=== PATIENT | female | born 2000 | race Caucasian/White ===

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

== ENCOUNTER 2020-05-11 21:13 | Emergency (ER) | payer OTHER ==
--- OUTSIDE RECORDS SUMMARY | 2020-05-11 21:15 | XMS REPORT | Continuity of Care Document ---
:2000 Author Organization [facility] t Address [address] [place] [address] Care Team Providers Name Role Phone Weston Bragg MD Attending Clinician Payers Payer Name Policy Type Policy Number Effective Date Expiration Date S ource Problems This patient has no known problems. Allergies, Adverse Reactions, Alerts Allergy Allergy Status Severity Reaction(s) Onset Inactive Treating Comm ents Source Name Type Date Date Clinician PENICILL DA Active U 2007- [facility] [place] 07-22 [facility] 00:00: d 00 [facility] Medications This patient has no known medications. Procedures This patient has no known procedures. Encounters Start End Encounter Admission Attending Care Care Encounter Source Date/Time Date/Time Type Type Clinicians Facility Department ID 2019-07-18 2019-07-18 Refill WAQAR Bragg [id number] 00:00:00 00:00:00 Alfred Sun [id number] Patricia [id number] [place] [id number] nal 092 Building Results This patient has no known results.
[2020-05-11 22:01] LABS: Urine Blood 3+ (NEG); Urine Glucose NEGATIVE (NEG); Urine Protein 2+ (NEG); Urine pH 5.5 (5.0-7.0)
[2020-05-11 22:01] LABS: Urine Bacteria <20 /HPF (<20); Urine Culture Reflex Order REFLEXED; Urine Mucus 1+ /HPF (NONE SEEN); Urine RBC 20-50 /HPF (NONE SEEN)
--- NOTE | 2020-05-11 22:06 | EDPHYS ---
Physician Documentation [facility] Name: Renetta Martin Age: 19 yrs Sex: Female : 2000 Arrival Date: 05/11/2020 Time: 21:15 Bed 19 Private MD: ED Physician Samir Goodwin HPI: 05/11 21:45 This 19 yrs old Female presents to ER via Ambulatory with complaints of Side cp Pain, Urinary Frequency, Fever. 21:45 The patient presents with urinary symptoms, dysuria, frequency. cp 21:45 Onset: The symptoms/episode began/occurred 4 day(s) ago. Associated signs and symptoms: cp Pertinent positives: fever, left flank pain, Pertinent negatives: constipation, diarrhea, vaginal discharge, vomiting. Severity of symptoms: in the emergency department the symptoms are unchanged, despite home interventions. 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 - Social history:: Smoking status: Patient denies any tobacco usage or history of. ROS: 21:50 Constitutional: Negative for body aches, chills, fever, poor PO intake. cp 21:50 Eyes: Negative for injury, pain, redness, and discharge. cp 21:50 Cardiovascular: Negative for chest pain. 21:50 Respiratory: Negative for cough, shortness of breath, wheezing. 21:50 Abdomen/GI: Negative for nausea, vomiting, diarrhea, constipation. 21:50 Back: Positive for flank pain, on the left. 21:50 : Positive for urinary symptoms, suprapubic pain. 21:50 Neuro: Negative for headache. 21:50 All other systems are negative. Exam: 21:55 Constitutional: The patient appears in no acute distress, alert, awake, non-toxic, well cp developed, well nourished. 21:55 Head/Face: Normocephalic, atraumatic. cp 21:55 Chest/axilla: Inspection: normal. 21:55 Cardiovascular: Rate: tachycardic, Rhythm: regular. 21:55 Respiratory: the patient does not display signs of respiratory distress, Respirations: normal, no use of accessory muscles, no retractions, labored breathing, is not present, Breath sounds: are clear throughout, no decreased breath sounds. 21:55 Abdomen/GI: Inspection: abdomen appears normal, Palpation: abdomen is soft and non-tender, in all quadrants, voluntary guarding, is not appreciated, involuntary guarding, is not appreciated. 21:55 Back: CVA tenderness, that is mild, is noted on the left. Vital Signs: 21:20 BP 98 / 66; Pulse 114; Resp 15 S; Temp 98.2(TE); Pulse Ox 99% ; Weight 52.62 kg (R); ca1 Height 5 ft. 6 in. (167.64 cm) (R); 21:45 BP 109 / 75 RA (auto/reg); Pulse 105; Pulse Ox 99% on R/A; jp3 21:20 Body Mass Index 18.72 (52.62 kg, 167.64 cm) ca1 MDM: 21:32 Patient medically screened. cp 22:00 Differential diagnosis: ovarian cyst, pelvic inflammatory disease, urinary tract cp infection, vaginosis, pyelonephritis. 22:05 Data reviewed: vital signs, nurses notes, lab test result(s), and as a result, I will cp discharge patient. 22:05 Counseling: I had a detailed discussion with the patient and/or guardian regarding: the cp historical points, exam findings, and any diagnostic results supporting the discharge/admit diagnosis, lab results, to return to the emergency department if symptoms worsen or persist or if there are any questions or concerns that arise at home. 05/11 21:32 Order name: Urine Microscopic Only; Complete Time: 22:04 cp 05/11 22:04 Interpretation: Normal except: UWBC 20-50; URBC 20-50. cp 05/11 21:51 Order name: Urine Dipstick--Ancillary (enter results); Complete Time: 22:04 ar5 05/11 22:04 Interpretation: Normal except: UBLD 3+; UPROT 2+; UESTR 1+. cp 05/11 21:28 Order name: Urine Dipstick-Ancillary (obtain specimen); Complete Time: 21:48 05/11 21:28 Order name: Urine Test (obtain specimen); Complete Time: 21:48 05/11 21:51 Order name: Urine --Ancillary (enter results); Complete Time: 22:04 ar5 05/11 22:04 Order name: Urine Culture EDMS Administered Medications: No medications were administered Point of Care Testing: Urine : 21:30 hCG Reading: Negative; Control Reading: Positive; jp3 Disposition: 05/12 03:13 Co-signature as Attending Physician, Samir Goodwin MD I agree with the assessment and tw4 plan of care. Disposition: 05/11/20 22:05 Discharged to Home. Impression: Urinary tract infection, site not specified. - Condition is Stable. - Discharge Instructions: Urinary Tract Infection, Adult. - Prescriptions for sulfamethoxazole- trimethoprim 200-40 mg/5 mL Oral Suspension - take 20 milliliter by ORAL route every 12 hours for 10 days; 400 milliliter. - Medication Reconciliation Form, Thank You Letter, Antibiotic Education, Prescription Opioid Use form. - Follow up: Private Physician; When: 2 - 3 days; Reason: Worsening of condition. - Problem is new. - Symptoms are unchanged. Signatures: Dispatcher [employer] EDMS Mauri Tinajero PA PA cp Kaye Cook Samir Goodwin MD MD tw4 Tamia Do RN RN ca1 Corrections: (The following items were deleted from the chart) 05/11 21:46 21:46 This 19 yrs old Female presents to ER via Ambulatory with complaints of cp Side Pain, Urinary Frequency, Fever. cp 22:19 22:05 05/11/2020 22:05 Discharged to Home. Impression: Urinary tract infection, site wh not specified. Condition is Stable. Forms are Medication Reconciliation Form, Thank You Letter, Antibiotic Education, Prescription Opioid Use. Follow up: Private Physician; When: 2 - 3 days; Reason: Worsening of condition. Problem is new. Symptoms are unchanged. cp
--- NOTE | 2020-05-11 22:06 | ER ---
Nurse's Notes [facility] Name: Renetta Martin Age: 19 yrs Sex: Female : 2000 Arrival Date: 05/11/2020 Time: 21:15 Bed 19 Private MD: Diagnosis: Urinary tract infection, site not specified Presentation: 05/11 21:20 Chief complaint: Patient states: Burning sensation with urination, urinary urgency and ca1 frequency since 4-5 days ago. Reports pain on suprapubic area and LLQ radiating the L lower back. Denies N/V. Reports fever last night. Coronavirus screen: Proceed with normal triage. Patient denies a cough. Patient denies shortness of breath or difficulty breathing. Patient denies measured and/or subjective temperature greater than 100.4F prior to today's visit. Patient denies travel on a cruise ship or to a country the [facility] currently lists as an affected area. Patient denies contact with known and/or suspected case of COVID-19. Ebola Screen: Patient negative for fever greater than or equal to 101.5 degrees Fahrenheit, and additional compatible Ebola Virus Disease symptoms Patient denies exposure to infectious person. Patient denies travel to an Ebola-affected area in the 21 days before illness onset. No symptoms or risks identified at this time. Initial Sepsis Screen: Does the patient meet any 2 criteria? No. Patient's initial sepsis screen is negative. Does the patient have a suspected source of infection? No. Patient's initial sepsis screen is negative. Risk Assessment: Do you want to hurt yourself or someone else? Patient reports no desire to harm self or others. Onset of symptoms was May 11, 2020. 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 - Social history:: Smoking status: Patient denies any tobacco usage or history of. Screenin:02 Abuse screen: Denies threats or abuse. Denies injuries from another. Nutritional wh screening: No deficits noted. Tuberculosis screening: No symptoms or risk factors identified. Fall Risk None identified. Assessment: 22:01 General: Appears in no apparent distress. Behavior is calm, cooperative, appropriate wh for age. Pain: Complains of pain in suprapubic area Pain does not radiate. Pain began 2-3 days ago. Neuro: Level of Consciousness is awake, alert, obeys commands, Oriented to person, place, time, situation, Appropriate for age. Cardiovascular: Capillary refill < 3 seconds. Respiratory: Airway is patent Respiratory effort is even, unlabored, Respiratory pattern is regular, symmetrical. GI: Abdomen is flat, non-distended. : Reports burning with urination, urinary frequency. EENT: No signs and/or symptoms were reported regarding the EENT system. Derm: Skin is intact, is healthy with good turgor, Skin is pink, warm \T\ dry. normal. Musculoskeletal: Circulation, motion, and sensation intact. Vital Signs: 21:20 BP 98 / 66; Pulse 114; Resp 15 S; Temp 98.2(TE); Pulse Ox 99% ; Weight 52.62 kg (R); ca1 Height 5 ft. 6 in. (167.64 cm) (R); 21:45 BP 109 / 75 RA (auto/reg); Pulse 105; Pulse Ox 99% on R/A; jp3 21:20 Body Mass Index 18.72 (52.62 kg, 167.64 cm) ca1 ED Course: 21:15 Patient arrived in ED. ds1 21:23 Triage completed. ca1 21:24 Arm band placed on right wrist. ca1 21:28 Mauri Tinajero PA is PHCP. cp 21:28 Samir Goodwin MD is Attending Physician. cp 21:28 Kaye Cook is Primary Nurse. wh 21:30 Bed in low position. Call light in reach. Side rails up X 1. Adult w/ patient. Warm jp3 blanket given. Verbal reassurance given. Pulse ox on. NIBP on. 21:30 Urine collected: clean catch specimen, clear, cliff colored. Patient maintains SpO2 jp3 saturation greater than 95% on room air. 22:05 Urine Culture Sent. jp3 22:18 No provider procedures requiring assistance completed. Patient did not have IV access during this emergency room visit. Administered Medications: No medications were administered Point of Care Testing: Urine : 21:30 hCG Reading: Negative; Control Reading: Positive; jp3 Outcome: 22:05 Discharge ordered by . mel 22:18 Discharged to home ambulatory, with family. 22:18 Condition: stable 22:18 Discharge instructions given to patient, family, Instructed on discharge instructions, follow up and referral plans. medication usage, POC Demonstrated understanding of instructions, follow-up care, medications, POC Prescriptions given X 1. 22:19 Patient left the ED. Addendum: 05/14/2020 07:30 Addendum: Culture Results: Positive urine culture. No further action required. Bacteria i w sensitive to prescribed antibiotic. Signatures: Juli Colon ds1 Kinsey Ordoñez, RN RN iw Mauri Tinajero PA PA cp [place], Winsy Cleveland Varela jp3 Tamia Do RN RN ca1
[2020-05-11 22:26] VITALS: TEMP 98.2; O2SAT 99
[2020-05-11 22:27] VITALS: BP 109/75
== END 2020-05-11 22:19 | disposition home or self-care (01) ==
LOC: ER 21:13
DX: N39.0 Urinary tract infection, site not specified (principal); F41.8 Other specified anxiety disorders; G43.909 Migraine, unspecified, not intractable, without status migrainosus; Z88.0 Allergy status to penicillin
CPT/HCPCS: 81003; 81015; 81025; 87077; 87086; 87088; 87186; 99284

== ENCOUNTER 2021-01-22 15:34 | Emergency (ER) | payer OTHER ==
--- OUTSIDE RECORDS SUMMARY | 2021-01-22 15:36 | XMS REPORT | Continuity of Care Document ---
:2000 Author Organization [facility] t Address [address] [place] [address] Care Team Providers Name Role Phone Lab, Fam Pob I Attending Clinician Unavailable Yemi SUGGS, Gene Attending Clinician Payers Payer Name Policy Type Policy Number Effective Date Expiration Date S ource Problems This patient has no known problems. Allergies, Adverse Reactions, Alerts Allergy Allergy Status Severity Reaction(s) Onset Inactive Treating Comm ents Source Name Type Date Date Clinician PENICILL DA Active [facility] [place] 07-22 [place] 00:00: d 00 [facility] Medications This patient has no known medications. Procedures This patient has no known procedures. Encounters Start End Encounter Admission Attending Care Care Encounter Source Date/Time Date/Time Type Type Clinicians Facility Department ID 2020-12-24 2020-12-24 Laboratory Lab, [facility] [id number] 10:46:19 11:06:19 Only Fam P[facility] [id number] [place] [id number] [place] [phone] [place] [address] 2020-11-09 2020-11-09 Laboratory Lab, [facility] [id number] 14:04:34 14:24:34 Only Fam [facility] [id number] [place] [id number] [place] [phone] [place] [address] 2019-07-18 2019-07-18 [place] WAQAR [place] [id number] 00:00:00 00:00:00 [place] [id number] [place] [id number] [facility] [phone] [facility] 092 Building Results This patient has no known results.
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
[2021-01-22] MEDS ORDERED: IBUPROFEN 200 MG TAB PO ONE (17:52)
[2021-01-22 18:05] VITALS: BP 114/76; TEMP 97.8; O2SAT 100
== END 2021-01-22 17:55 | disposition home or self-care (01) ==
LOC: ER 15:34
DX: M25.562 Pain in left knee (principal); V49.40XA Driver injured in collision with unspecified motor vehicles in traffic accident, initial encounter; Z88.0 Allergy status to penicillin
CPT/HCPCS: 99284

== ENCOUNTER 2024-12-02 14:18 | Emergency (ER) | payer BC, OTHER ==
--- OUTSIDE RECORDS SUMMARY | 2024-12-02 14:38 | XMS REPORT | Continuity of Care Document ---
Author Name Unknown Address [address] [facility] [address] [place] [address] [facility] thconnect Address [address] [facility] [address] [place] [address] Care Team Providers Care Child Development Instructor Name Role Phone Ailyn Ordaz NP Primary Care Physician +- [phone] Muriel De Los Santos Attending Clinician Unavailable Doctor Unassigned, [place] Attending Clinician U navailable Provider, [facility] Attending Clinician Un available Mary Anne Serna Attending Clinician [phone] Lab, Adc Fam Pob I Attending Clinician Unavailab MARY ANNE Marin Attending Clinician Unavailable Alfred Bragg MD Attending Clinician [phone] Muriel De Los Santos Admitting Clinician Unavailable Payers Payer Name Policy Type Policy Number Effective Date Expirati on Date Source Problems Condition Name Condition Details Condition Category Status Onset Date Resolution Date Last Treatment Date Treating Clinician Comments Source No known active problems No known active problems Disease [facility] Allergies, Adverse Reactions, Alerts Allergy Name Allergy Type Status Severity Reaction(s) Onset Date Inactive Date Treating Clinician Comments Source Penicill ins DA Active [place] RASH 1- 00:00: 00 [facility] DA Active MO RASH 1-07 00:00: 00 [facility] PENICILL IN DA Active U RASH, SWELLING 07-31 00:00: 00 [facility] Penicill ins Propensi ty to adverse reaction s Active Rash 06-19 00:00: 00 [facility] PENICILL INS Drug Class Active Rash 06-19 00:00: 00 [facility] Penicill ins Propensi ty to adverse reaction s Active Rash 06-19 00:00: 00 [facility] PENICILL IN DA Active U 07-22 00:00: 00 [facility] Social History Social Habit Start Date Stop Date Quantity Comments Source History SDOH Alcohol Std Drinks [facility] History SDOH Alcohol Binge [facility] SARS-CoV-2 (event) 2021-02-24 00:00:00 2021-03-26 10:34:00 Yes [facility] Alcohol intake 2021-03-26 00:00:00 2021-03-26 00:00:00 Lifetime non-drinker (finding) [facility] History of Social function 2021-03-26 00:00:00 2021-03-26 00:00:00 [facility] History SDOH Alcohol Frequency 2019-05-24 00:00:00 2019-05-24 00:00:00 1 [facility] Tobacco use and exposure 2017-10-07 00:00:00 2017-10-07 00:00:00 Smokeless tobacco non-user [facility] Sex Assigned At 2000 00:00:00 2000 00:00:00 [facility] Smoking Status Start Date Stop Date Source Never smoked tobacco [facility] Medications Ordered Medication Name Filled Medication Name Start Date Stop Date Current Medication? Ordering Clinician Indication Dosage Frequency Signature (SIG) Comments Components Source MUPIROCIN 2 % TOPICAL OINT 03-26 19:38: 36 03-26 00:00 :00 No None Entered [facility] topiramate 25 mg tablet 2018-11 00:00: 00 Yes [id number] 25mg Take 1 tablet by mouth 2 (two) times daily. [facility] TOPIRAMATE 25 mg tablet 07-19 00:00: 00 Yes [id number] TAKE 1 TABLET BY MOUTH TWICE DAILY [facility] MUPIROCIN 2 % TOPICAL OINT 05-24 13:19: 43 Yes None Entered [facility] topiramate 25 mg tablet 05-24 00:00: 00 07-18 00:00 :00 No [id number] 25mg Take 1 tablet by mouth 2 (two) times daily. [facility] Immunizations Ordered Immunization Name Filled Immunization Name Date Status Comments Source SARS-COV-2 COVID-19 RICKI/J&J VACCINE 2021-02-07 00:00:00 Completed [facility] SARS-COV-2 COVID-19 RICKI/J&J VACCINE Unknown Completed [facility] Vital Signs Vital Name Observation Time Observation Value Comments S ource Systolic blood pressure 2021-03-26 18:33:00 102 mm[Hg] [facility] Diastolic blood pressure 2021-03-26 18:33:00 72 mm[Hg] [facility] Heart rate 2021-03-26 18:33:00 89 /min [facility] Body temperature 2021-03-26 18:33:00 37 Delia [facility] Body height 2021-03-26 18:33:00 165.1 cm [facility] Body weight 2021-03-26 18:33:00 52.164 kg [facility] BMI 2021-03-26 18:33:00 19.14 kg/m2 [facility] Oxygen saturation in Arterial blood by Pulse oximetry 2021-03-26 18:33:00 98 /min [facility] Procedures Procedure Date / Time Performed Performing Clinicia n Source [id number] 2021-12-25 00:00:00 [facility] [id number] 2021-12-25 00:00:00 [facility] [id number] 2021-12-25 00:00:00 [facility] [id number] 2021-12-25 00:00:00 [facility] [id number] 2021-12-25 00:00:00 [facility] Encounters Start Date/Time End Date/Time Encounter Type Admission Type Attending Clinicians Care Facility Care Department Encounter ID Source 2021-12-24 12:37:00 2021-12-27 13:10:00 Inpatient EM Muriel De Los Santos [facility] OBPP [id number] [facility] 2021-12-06 15:29:00 2021-12-06 16:40:00 Emergency EM Muriel De Los Santos [facility] ESTELITA [id number] [facility] 2021-07-31 02:46:00 2021-08-01 16:00:00 Emergency EM Muriel De Los Santos [facility] OBANTE [id number] [facility] 2021-03-29 00:00:00 2021-03-29 00:00:00 Patient Secure Msg Doctor Unassigned, [place] [facility] .840.114 350.1.13.10 4.2.7.2.686 [id number] [facility] 2021-03-26 13:28:23 2021-03-26 13:48:23 Urgent Care Provider, [facility] [address] ..840.114 350.1.13.10 4.2.7.2.686 [id number] [facility] 2021-03-26 13:20:00 2021-03-26 13:20:00 Outpatient R [facility] [id number] [facility] 2021-03-26 13:00:00 2021-03-26 13:00:00 Outpatient R [facility] [id number] [facility] 2021-02-07 14:15:00 2021-02-07 14:15:00 Outpatient [facility] [id number] [facility] 2020-12-24 10:46:19 2020-12-24 11:06:19 Laboratory Only Lab, [facility] 1.114 350.1.13.10 4.2.7.2.686 [id number] [facility] 2020-12-24 10:46:19 2020-12-24 11:06:19 Laboratory Only Lab, [facility] [address] 1.114 350.1.13.10 4.2.7.2.686 [id number] 2020-12-24 10:40:00 2020-12-24 10:40:00 Outpatient MARY ANNE WALLACE [facility] [id number] [facility] 2020-11-09 14:04:34 2020-11-09 14:24:34 Laboratory Only Lab, [facility] [address] 1.114 350.1.13.10 4.2.7.2.686 [id number] 2020-11-09 14:04:34 2020-11-09 14:24:34 [facility] 1..114 350.1.13.10 4.2.7.2.686 [id number] [facility] 2020-11-09 14:00:00 2020-11-09 14:00:00 Outpatient R MARY ANNE HANSON [facility] [id number] [facility] 2019-07-18 00:00:00 2019-07-18 00:00:00 Alfred Polo [facility] [id number] [id number] 4.2.7.2.686 [id number] 2019-07-18 00:00:00 2019-07-18 00:00:00 Alfred Polo [facility] [id number] 350.1.13.10 4.2.7.2.686 [id number] [facility] Results Test Description Test Time Test Comments Results Result Co mments Source AB HEPATITIS C [id number] 20:25:00* Test Item Value Reference Range Interpretation Comme nts AB HEPATITIS C (test code = HCVAB) NONREACTIVE NONREACTIVE SIGNAL TO CUTOFF (test code = CUTOFF) <0.02 <0.80 N AB [id number] 20:25:00* Test Item Value Reference Range Interpretation Comme nts AB TREPONEMA (test code = TREPAB) NONREACTIVE NONREACTIVE AB HIV 1 20:25:00* Test Item Value Reference Range Interpretation Comme nts AB HIV 1 2 (test code = KAD83HT) NONREACTIVE NONREACTIVE Done by [employer] 4th Gen HIV Ag/Ab Combo Screen CBC W/AUTO [id number] 18:18:00* Test Item Value Reference Range Interpretation Comme nts WHITE BLOOD CELL (test code = WBC) 10.0 K/mm3 6.5-12.3 N RED BLOOD CELL (test code = RBC) 3.85 M/mm3 3.51-4.69 N HEMOGLOBIN (test code = HGB) 10.3 g/dL 10.1-13.8 N HEMATOCRIT (test code = HCT) 32.1 % 32.5-41.8 L MEAN CELL VOLUME (test code = MCV) 83.4 fL 84.6-96.6 L MEAN CELL HGB (test code = MCH) 26.8 pg 27.3-33.9 L MEAN CELL HGB CONCETRATION ( test code = MCHC) 32.1 gm/dL 32.0-34.2 N RED CELL DISTRIBUTION WIDTH (test code = RDW) 14.5 % 12.2-16.3 N PLATELET COUNT (test code = PLT) 264 K/mm3 134-363 N MEAN PLATELET VOLUME (test c ode = MPV) 10.0 fL 9.2-12.7 N NEUTROPHIL % (test code = NT%) 83.3 % 57.9-77.3 H LYMPHOCYTE % (test code = LY%) 11.8 % 14.5-29.7 L MONOCYTE % (test code = MO%) 4.3 % 3.6-10.2 N EOSINOPHIL % (test code = EO%) 0.1 % 0.0-3.0 N BASOPHIL % (test code = BA%) 0.1 % 0.1-0.9 N NEUTROPHIL # (test code = NT#) 8.4 K/mm3 LYMPHOCYTE # (test code = LY#) 1.2 K/mm3 MONOCYTE # (test code = MO#) 0.4 K/mm3 EOSINOPHIL # (test code = EO#) 0.01 K/mm3 BASOPHIL # (test code = BA#) 0.0 K/mm3 RBC MORPHOLOGY REQUIRED (myah t code = RBCM) NORMAL NORMAL PLATELET MORPHOLOGY REQUIRED (test code = PLTMR) NORMAL NORMAL COVID 19 Asymptomatic IH [id number] 17:40:00* Test Item Value Reference Range Interpretation Comme nts COVID 19 Asymptomatic IH AG (test code = COVNONPUIAG) NEGATIVE NEGATIVE This test has be en authorized only for the detection ofproteins from SARS-CoV-2, not for any other viruses orpathogens. Negative results should be treated as presumptive andconfirmed with a molecular assay, if necessary for patientmanagement. Negative results do not rule out COVID-19 andshould not be used as the sole basis for treatment orpatient management decisions, including infection controldecisions. Negative results should be considered in thecontext of a patient's recent exposures, history and thepresence of clinical signs and symptoms consistent withCOVID-19. This test has not been FDA cleared or approved; the test hasbeen authorized by FDA under an Emergency Use Authorization(EUA) for use by laboratories certified under the CLIA thatmeet the requirements to perform moderate, high or waivedcomplexity tests. This test is authorized for use at thePoint of Care (POC), i.e., in patient care settingsoperating under a CLIA Certificate of Waiver, Certificate ofCompliance, or Certificate of Accreditation. This test is only authorized for the duration of thedeclaration that circumstances exist justifying theauthorization of emergency use of in vitro diagnostic testsfor detection and/or diagnosis of COVID-19 under Trhlgey141(b)(1) of the Act, 21 U.S.C. 360bbb-3(b)(1), unless theauthorization is terminated or revoked sooner. - US FET BIO PH VA W/O [id number] 00:00:00 [facility] 2000 Sex: F Patient Name: DRE GARCIA Unit No: [id number] EXAMS: CPT CODE: [id number] US FET BIO PH VA W/O NST 97905 PROCEDURE INFORMATION: Exam: US Biophysical Profile Without Non-Stress Test Exam date and time: 12/06/2021 4:14 PM Age: 21 years old Clinical indication: Screening exam; Routine US screeningof fetus; Third trimester (=28 weeks 0 days); ; Additional info: Iup at 36.2 weeks decreased fm TECHNIQUE: Imaging protocol: US biophysical profile without non-stress testing. COMPARISON: US LTD 07/30/2021 4:05 PM FINDINGS: Gestation: A single live intrauterine is identified currently in cephalic position with heart tones of 152 bpm. Amniotic fluid index measures 12.8 cm. Posterior grade 2 placenta is seen. No placenta previa identified. Cervix is obscured. The maternal ovaries are obscured by overlying gas. BIOPHYSICAL PROFILE: Breathin/2 Gross body movements: 2/2 tone: 2/2 Qualitative amniotic fluid: 2/2 Biophysical Profile Score: 8/8 IMPRESSION: Biophysical profile score of 8/8. Electronically Signed by Hank Wolf MD on at 1649 Reported and signed by: Hank Wolf MD CC: Muriel De Los Santos MD; Emory Conrad MD Technologist: Alexus Ramirez RDMS Probe: Trnscrbd D/ (1649) GCD.CPS Orig Print D/T: S: 12/06/2021 (1650) [facility] Rad[facility] DepartmentPHYS: Emory Patterson [address] : 2000 AGE: 21 SEX: F [place] [id number] NO: [id number] LOC: NeilESTELITA PHONE #: [phone] EXAM DATE: 12/06/2021 STATUS: REG ER FAX #:[phone] RAD NO: Page 1 Signed Report Patient Name: DRE GARCIA Unit No: [id number] EXAMS: CPT CODE: [id number] US FET BIO PH VA W/O NST 76772 <Continued> [facility] NAME: [facility] Radiology Department PHYS: JOSEFA Emory Conrad [address] : 2000 AGE: 21 SEX: F [place], [place] [address] LOC: Wandy.ESTELITA PHONE #: [phone] EXAM DATE: 12/06/2021 STATUS: REG ER FAX #: [phone] RAD NO: Page 2 Signed ReportCOVID 19 Asymptomatic IH [id number] 23:51:00* Test Item Value Reference Range Interpretation Comme nts COVID 19 Asymptomatic IH AG (test code = COVNONPUIAG) NEGATIVE NEGATIVE This test has be en authorized only for the detection ofproteins from SARS-CoV-2, not for any other viruses orpathogens. Negative results should be treated as presumptive andconfirmed with a molecular assay, if necessary for patientmanagement. Negative results do not rule out COVID-19 andshould not be used as the sole basis for treatment orpatient management decisions, including infection controldecisions. Negative results should be considered in thecontext of a patient's recent exposures, history and thepresence of clinical signs and symptoms consistent withCOVID-19. This test has not been FDA cleared or approved; the test hasbeen authorized by FDA under an Emergency Use Authorization(EUA) for use by laboratories certified under the CLIA thatmeet the requirements to perform moderate, high or waivedcomplexity tests. This test is authorized for use at thePoint of Care (POC), i.e., in patient care settingsoperating under a CLIA Certificate of Waiver, Certificate ofCompliance, or Certificate of Accreditation. This test is only authorized for the duration of thedeclaration that circumstances exist justifying theauthorization of emergency use of in vitro diagnostic testsfor detection and/or diagnosis of COVID-19 under Nikzqcz421(b)(1) of the Act, 21 U.S.C. 360bbb-3(b)(1), unless theauthorization is terminated or revoked sooner. [id number] 16:34:00* Test Item Value Reference Range Interpretation Comme nts AMYLASE (test code = ENRICO) 47 units/L 30-110 N COMPREHENSIVE METABOLIC [id number] 16:34:00* Test Item Value Reference Range Interpretation Comme nts SODIUM (test code = NA) 139 mEq/L 135-145 N POTASSIUM (test code = K) 4.2 mEq/L 3.5-5.0 N CHLORIDE (test code = CL) 106 mEq/L 100-115 N CARBON DIOXIDE (test code = CO2) 25 mEq/L 22-31 N ANION GAP (test code = GAP) 12.30 10-20 N GLUCOSE (test code = GLU) 84 mg/dL 65-110 N BLOOD UREA NITROGEN (test co de = BUN) 6 mg/dL 7-18 L GLOMERULAR FILTRATION RATE ( test code = GFR) 156 ml/min >60 N CREATININE (test code = CREAT) 0.5 mg/dL 0.5-1.0 N TOTAL PROTEIN (test code = PROT) 6.5 gm/dL 6.3-8.2 N ALBUMIN (test code = ALB) 3.2 gm/dL 3.4-4.8 L CALCIUM (test code = CA) 8.8 mg/dL 8.4-10.2 N BILIRUBIN TOTAL (test code = BILT) 0.2 mg/dL 0.2-1.0 N SGOT/AST (test code = AST) 12 units/L 15-37 L SGPT/ALT (test code = ALT) 16 units/L 12-78 N ALKALINE PHOSPHATASE TOTAL ( test code = ALKP) 64 units/L 46-116 N CBC W/AUTO [id number] 14:48:00* Test Item Value Reference Range Interpretation Comme nts WHITE BLOOD CELL (test code = WBC) 9.8 K/mm3 6.5-12.3 N RED BLOOD CELL (test code = RBC) 3.62 M/mm3 3.51-4.69 N HEMOGLOBIN (test code = HGB) 10.9 g/dL 10.1-13.8 N HEMATOCRIT (test code = HCT) 31.9 % 32.5-41.8 L MEAN CELL VOLUME (test code = MCV) 88.1 fL 84.6-96.6 N MEAN CELL HGB (test code = MCH) 30.1 pg 27.3-33.9 N MEAN CELL HGB CONCETRATION ( test code = MCHC) 34.2 gm/dL 32.0-34.2 N RED CELL DISTRIBUTION WIDTH (test code = RDW) 13.2 % 12.2-16.3 N PLATELET COUNT (test code = PLT) 288 K/mm3 134-363 N MEAN PLATELET VOLUME (test c ode = MPV) 8.9 fL 9.2-12.7 L NEUTROPHIL % (test code = NT%) 74.4 % 57.9-77.3 N LYMPHOCYTE % (test code = LY%) 19.7 % 14.5-29.7 N MONOCYTE % (test code = MO%) 4.8 % 3.6-10.2 N EOSINOPHIL % (test code = EO%) 0.5 % 0.0-3.0 N BASOPHIL % (test code = BA%) 0.1 % 0.1-0.9 N NEUTROPHIL # (test code = NT#) 7.3 K/mm3 LYMPHOCYTE # (test code = LY#) 1.9 K/mm3 MONOCYTE # (test code = MO#) 0.5 K/mm3 EOSINOPHIL # (test code = EO#) 0.05 K/mm3 BASOPHIL # (test code = BA#) 0.0 K/mm3 RBC MORPHOLOGY REQUIRED (myah t code = RBCM) NORMAL NORMAL PLATELET MORPHOLOGY REQUIRED (test code = PLTMR) NORMAL NORMAL UA RFLX MICR CULT IF [id number] 14:40:00* Test Item Value Reference Range Interpretation Comme nts UA COLOR (test code = COLU) STRAW YELLOW UA APPEARANCE (test code = APPU) CLEAR CLEAR UA GLUCOSE DIPSTICK (test co de = DGLUU) NEGATIVE NEG UA BILIRUBIN DIPSTICK (test code = BILU) NEGATIVE NEG UA KETONE DIPSTICK (test cod e = KETU) NEGATIVE NEG UA SPECIFIC GRAVITY (test co de = SGU) 1.002 1.001-1.035 N UA BLOOD DIPSTICK (test code = MARIO) NEG NEG UA PH DIPSTICK (test code = KARY) 7.0 5-9 UA PROTEIN DIPSTICK (test co de = PROU) NEGATIVE NEG UA UROBILINIOGEN DIPSTICK (test code = URO) NEGATIVE mg/dL NEG UA NITRITE DIPSTICK (test co de = JAG) NEG NEG UA LEUKOCYTE ESTERASE DIPSTI CK (test code = LEUU) 3+ NEG A UA WBC (test code = WBCU) 6-10 #/hpf NONE SEEN A UA RBC (test code = RBCU) 3-5 #/hpf NONE SEEN A UA EPITHELIAL CELLS (test co de = EPIU) FEW #/HPF RARE-FEW UA BACTERIA (test code = BACU) RARE /HPF RARE-FEW Indication for culture: Suprapubic PainSpecimen Description: CLEAN CATCH- MRI ABDOMEN W/O [id number] [facility]00[facility] 2000 Sex: F Patient Name: DRE GARCIA Unit No: [id number] EXAMS: CPT CODE: [id number] MRI ABDOMEN W/O CONT 03037 PROCEDURE INFORMATION: Exam: MR Abdomen Without Contrast Exam date and time: 07/30/2021 5:58 PM Age: 21 years old Clinical indication: Right lower quadrant abdominal pain TECHNIQUE: Imaging protocol: MR of the abdomen without contrast. COMPARISON: 1. CT ABD PELVIS W/CONT 11/13/2018 9:36 PM 2. Ultrasound 07/30/2021 FINDINGS: Liver: Included part of the liver is unremarkable. Gallbladder and bile ducts: The gallbladder is unremarkable. No biliary dilation. Pancreas: Unremarkable. Spleen: The included part of the spleen is unremarkable. Adrenal glands: Unremarkable. Kidneys and ureters: The kidneys are unremarkable. Stomach and bowel: No evidence of acute bowel pathology. Appendix: The appendix is not directly visualized. There is no evidence of acute appendicitis. No findings are present on this exam within the right lower quadrant to correspond with findings reported on current limitedabdominal ultrasound. Intraperitoneal space: No significant peritoneal fluid. Arteries: No abdominal aortic aneurysm. Urinary bladder: The urinary bladder is unremarkable. Reproductive: Gravid uterus, single fetus. Fundal placenta, no previa. The ovaries are unremarkable. Lymph nodes: No adenopathy. Bones/joints: No significant skeletal abnormality. Normal intervertebral disc signal and morphology. Soft tissues: No significant abnormality. IMPRESSION: No acute finding. at 2010 Reported and signed by: Anant Qiu MD CC: Myla Londono MD; Parth Villanueva MD; Muriel De Los Santos MD Technologist: Jeff Cottrell, RT,MR,CT Trnscrbd D/T: (2010) GCD.CPS Orig Print D/T: S: 07/30/2021 (2010) [facility] NAME: DRE GARCIA Radiology Department PHYS: Myla Sanchez MD [address] : 2000 AGE:21 SEX: F [place], [place] [address] LOC: TAYLOR PHONE #: [phone] EXAM DATE: STATUS: REG ER FAX #: [phone] RAD NO: Page 1 Signed Report- US ABDOMEN [id number] 00:00[facility]00 [facility] 2000 Sex: F Patient Name: DRE GARCIA Unit No: [id number] EXAMS: CPT CODE: [id number] US ABDOMEN LTD 64338 PROCEDURE INFORMATION: Exam: US Abdomen, Limited; Appendix Exam date and time: 07/30/2021 3:57 PM Age: 21 years old Clinical indication: Other: Rlq pain x 8 days; ; Additional info: Right lower quadrant pain TECHNIQUE: Imaging protocol: US abdomen. Real time ultrasound with image documentation. Limited exam focused on the appendix. COMPARISON: CT ABD PELVIS W/CONT 11/13/2018 9:36 PM FINDINGS: Appendix: There is suggestion of a blind-ending tubular structure in the right lower quadrant which is noncompressible and measures 3.4 x 1.6 cm in size with associated right lower quadrant rebound tenderness. IMPRESSION: Findings consistent with acute appendicitis. at 1705 Reported and signed by: Tucker Ambrosio MD CC: Parth Villanueva MD; Muriel De Los Santos MD Technologist: Talita Ordoñez RDMS, RVT Probe: Trnscrbd D/ (170) GCD.CPS Orig Print D/T: S: 07/30/2021 (170) [facility] NAME: [facility] Radiology Department PHYS: Parth Watkins [address] [place] [address] : 2000 AGE: 21 SEX: F [place], [place] [address] LOC: F.ERS PHONE #: [phone] EXAM DATE: 07/30/2021 STATUS: REG ER FAX #: [phone] RAD NO: Page 1 Signed Report Patient Name: DRE GARCIA Unit No:[id number] EXAMS: CPT CODE: [id number] US ABDOMEN LTD 417[address] <Continued> [facility] NAME: [facility] Radiology Department PHYS: [facility] : 2000 AGE: 21 SEX: F [place], [place] [address] LOC: F.ERS PHONE #: [phone] EXAM DATE: 07/30/2021 STATUS: REG ER FAX #: [phone] RAD NO: Page 2 Signed Report- US ABDOMEN [id number] 00:00[facility] 2000 Sex: F Patient Name: DRE GARCIA Unit No: [id number] Report Has Been Amended EXAMS: CPT CODE: [id number] US ABDOMEN LTD 60518 Addendum - 07/30/2021 SIGNED 07/30/2021 ADDENDUM: [id number] US/USABDLTD Addendum: Additional imaging by myself (Dr. Mónica Cummins) demonstrated what appeared to be a compressible appendix measuring 0.6 cm. There is no evidence of hyperemia. The tip of the appendix is not well visualized and tip appendicitis cannot categorically be excluded. Large amount of bowel gas obscures the tip of the appendix. The patient is mildly tender over the right ovary. No free fluid or significant lymphadenopathy is identified. This finding should not preclude CT scan if felt clinically indicated. These findings were discussed with Dr. Sin Stoll by phone 5:20 p.m. 07/30/2021. at 9437 Reported and signed by: Caron Cummins MD Transcribed: 07/30/2021 (9662) GCD.CPS Report PROCEDURE INFORMATION: Exam: US Abdomen, Limited; Appendix Exam date and time: 07/30/2021 3:57 PM Age: 21 years old Clinical indication: Other: Rlq pain x 8 days; ; Additional info: Right lower quadrant pain TECHNIQUE: Imaging protocol:US abdomen. Real time ultrasound with image documentation. Limited exam focused on the appendix. COMPARISON: CT ABD PELVIS W/CONT 11/13/2018 9:36 PM FINDINGS: Appendix: There is suggestion of a blind- ending tubular structure in the right lower quadrant which is noncompressible and measures 3.4 x 1.6 cm in size with associated right lower quadrant rebound tenderness. IMPRESSION: Findings consistent with acute appendicitis. at 1703 Reported and signed by: Tucker Ambrosio MD [facility] NAME: DRE GARCIA Radiology Department PHYS: Parth Watkins [address] : 2000 AGE: 21 SEX: F [place], [place] [address] LOC: NeilERS PHONE #: [phone] EXAM DATE: 07/30/2021 STATUS: REG ER FAX #: [phone] RAD NO: Page 1 Signed Report (CONTINUED) Patient Name: DRE GARCIA Unit No: [id number] Report Has Been Amended EXAMS: CPT CODE: [id number] US ABDOMEN LTD 37695 <Continued> CC: Parth Villanueva MD; Muriel De Los Santos MD Technologist: Talita Ordoñez RDMS, RVT Probe: Trnscrbd D/ (1705) GCD.CPS Orig Print D/T: S: 07/30/2021 (1705) [facility] NAME: DRE GARCIA Radiology Department PHYS: Parth Watkins [address] : 2000 AGE: 21 SEX: F [place] [address] LOC: Wandy.ERS PHONE #: [phone] EXAM DATE: 07/30/2021 STATUS: REG ER FAX #: [phone] RAD NO: Page 2 Signed Report PatientName: DRE GARCIA Unit No: [id number] Report Has Been Amended EXAMS: CPT CODE: [id number] US ABDOMEN LTD 77825 <Continued> The [facility] NAME: DRE GARCIA RadiologyDepartment PHYS: Parth Watkins [address] : 2000 AGE: 21 SEX: F [place] [address] LOC: F.ERS PHONE #: [phone] EXAM DATE: 07/30/2021 STATUS: REG ER FAX #: [phone] RAD NO: Page 3 Signed Report- US [id number] 00:00:00 [facility] : 2000 Sex: F Patient Name: DRE GARCIA Unit No: [id number] EXAMS: CPT CODE: [id number] US LTD 73103 PROCEDURE INFORMATION: Exam: US , Limited Exam date and time: 07/30/2021 4:05 PM Age: 21 years old Clinical indication: Lmp or gestational age (in weeks): 17w 6d; Other: Rlq pain x 8 days; ; Additional info: Pelvic pain, patient TECHNIQUE: Imaging protocol: Real-time ultrasound of the maternal uterus with image documentation. Exam focused on the clinical indication. COMPARISON: US PELVIS COMPLETE 11/13/2018 7:58 PM FINDINGS: Limited assessment of the gravid uterus was performed using grayscale, color and and moved Doppler. EGA: 17 weeks, 6 days. Presentation: Breech. heart rate: 148 bpm Placenta location: The placenta is posterior, non-previa without signs of retroplacental hemorrhage. The cervix is closed measuring 4.4 cm in length. Grade: 1 MELYSSA: Amniotic fluid subjectively within normal limits. The maternal right ovary measures 2.6 x 1.6 x 1.5 cm without focal abnormality and with color Doppler blood flow. Nonvisualized left ovary. No free fluid. IMPRESSION: 1. Single, viable intrauterine gestation in breech presentation with estimated heart rate approximately 148 bpm. 2. Posterior placenta, grade 1, without previa or retroplacental hemorrhage. 3. The cervix is closed measuring 4.4 cm in length. 4. Normal-sized maternal right ovary without focal lesion. Nonvisualized left ovary. 5. No free fluid. at 1716 Reported and signed by: Moses Mayorga MD CC: Parth Villanueva MD; Muriel De Los Santos MD Technologist: Talita Ordoñez RDMS, RVT Probe: Trnscrbd D/ (1716) GCD.CPS Orig Print D/T: S: 07/30/2021 (1716) [facility] NAME: DRE GARCIA Radiology Department PHYS: Parth [address] : 2000 AGE: 21 SEX: F [place] [address] LOC: TAYLOR PHONE #: [phone] EXAM DATE: 07/30/2021 STATUS: REG ER FAX #: [phone] RAD NO: Page 1 Signed Report Patient Name: DRE GARCIA Unit No: [id number] EXAMS: CPT CODE: [id number] LTD 00150 <Continued> [facility] NAME: DRE GARCIA Radiology Department PHYS: Parth [address] : 2000 AGE: 21 SEX: F [place], [place] [address] LOC: NeilERS PHONE #: [phone] EXAM DATE: 07/30/2021 STATUS: REG ER FAX #: [phone] RAD NO: Page 2 Signed Report
[2024-12-02] MEDS ORDERED: ONDANSETRON 4 MG/2 ML VIAL ONE (15:06)
[2024-12-02] MEDS ORDERED: NA CHLORIDE 0.9% 1,000 ML ONE (15:06)
--- NOTE | 2024-12-02 15:09 | RAD REPORT ---
Procedure: Chest Single View HISTORY: Chest pain COMPARISON: none FINDINGS: The lungs appear clear of acute infiltrate. No significant pleural effusion noted. The heart is normal size. IMPRESSION: No acute abnormality is displayed.
[2024-12-02 15:14] LABS: Absolute Eosinophils 0.1 K/uL (0-0.5); Absolute Monocytes 0.5 K/uL (0.1-1.3); Basophils % 0.4 % (0-1.3); Eosinophils % 0.8 % (0-4.4); Hematocrit 34.8 % (36.0-45.0); Hemoglobin 11.8 g/dL (12.0-15.0); MCH 26.6 pg (27.0-35.0); MCHC 33.8 g/dL (32.0-36.0); MCV 78.8 fL (80-100); MPV 6.1 fL (7.6-11.3); Monocytes % 5.1 % (3.3-12.3); Neutrophils % 74.7 % (41.7-73.7); Platelets 428 thou/uL (152-406); RBC Red Blood Cell Count 4.42 M/uL (3.86-4.86); Red Cell Distribution Width 14.1 % (12.1-15.2)
[2024-12-02 15:33] LABS: Anion Gap 7.4 mEq/L (5.0-15.0); BUN Blood Urea Nitrogen 11 mg/dL (7-18); Bicarbonate 28 mEq/L (21-32); Glomerular Filtration Rate 95 ml/min (=/>90); Glucose Level 95 mg/dL (74-106); Potassium 4.4 mEq/L (3.5-5.1); Sodium Level 139 mEq/L (136-145)
[2024-12-02 15:35] LABS: Troponin High Sensitivity < 3.0 pg/mL (<58.9)
--- NOTE | 2024-12-02 16:45 | EDPHYS ---
Physician Documentation [facility] Name: Renetta Martin Age: 24 yrs Sex: Female : 2000 Arrival Date: 12/02/2024 Time: 14:18 Bed 11 Private MD: ED Physician Mauri Mason HPI: 12/02 14:39 This 24 yrs old Female presents to ER via EMS with complaints of Syncope. dr5 14:39 The patient has experienced syncope, Syncopal episode at next level urgent care. Onset: dr5 The symptoms/episode began/occurred acutely. Patient reports was getting TB test placed in right forearm when she became unresponsive and passed out. Patient denies any symptoms at this time. Patient reports she does have a history of seizures but has not had a seizure since she was a child and not taking any medications for it. Patient denies chest pain, shortness of breath, abdominal pain, fever.. 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 - Infectious Disease History:: Denies. - Social history:: Smoking status: unknown. ROS: 14:39 Constitutional: as per hpi dr5 Exam: 14:39 Constitutional: This is a well developed, well nourished patient who is awake, alert, dr5 and in no acute distress. Head/Face: Normocephalic, atraumatic. Eyes: Pupils equal round and reactive to light, extra-ocular motions intact. Lids and lashes normal. Conjunctiva and sclera are non-icteric and not injected. Cornea within normal limits. Periorbital areas with no swelling, redness, or edema. ENT: Nares patent. No nasal discharge, no septal abnormalities noted. Tympanic membranes are normal and external auditory canals are clear. Oropharynx with no redness, swelling, or masses, exudates, or evidence of obstruction, uvula midline. Mucous membranes moist. Chest/axilla: Normal chest wall appearance and motion. Nontender with no deformity. No lesions are appreciated. Cardiovascular: Regular rate and rhythm with a normal S1 and S2. Normal PMI, no JVD. No pulse deficits. Respiratory: Lungs have equal breath sounds bilaterally, clear to auscultation. No rales, rhonchi or wheezes noted. No increased work of breathing, no retractions or nasal flaring. Back: No spinal tenderness. No costovertebral tenderness. Full range of motion. Skin: Warm, dry with normal turgor. Normal color with no rashes, no lesions, and no evidence of cellulitis. Neuro: Awake and alert, GCS 15, oriented to person, place, time, and situation. Cranial nerves II-XII grossly intact. Motor strength 5/5 in all extremities. Sensory grossly intact. Cerebellar exam normal. Normal gait. Vital Signs: 14:35 BP 103 / 59; Pulse 66; Resp 16; Temp 98.6(O); Pulse Ox 100% ; Weight 49.9 kg; Height 5 db ft. 5 in. ; Pain 0/10; 15:08 BP 100 / 59; Pulse 64; Resp 18; Pulse Ox 99% on R/A; Pain 0/10; ld1 14:35 Body Mass Index 18.30 (49.90 kg, 165.1 cm) db 14:35 Pain Scale: Adult db 15:08 Pain Scale: Adult ld1 MDM: 14:40 Medical Screening Exam initiated dr5 17:24 Differential Diagnosis: idiopathic syncope, seizure, vasovagal episode. dr5 17:24 Data reviewed: vital signs, nurses notes, lab test result(s). I considered the dr5 following discharge prescriptions or medication management in the emergency department Medications were administered in the Emergency Department. See MAR. Care significantly affected by the following Social Determinants of Health: Poor access to healthcare and/or lack of insurance, Poor access to transportation, Problems related to employment. Counseling: I had a detailed discussion with the patient and/or guardian regarding the historical points, exam findings, and any diagnostic results supporting the discharge/admit diagnosis, the presence of at least one elevated blood pressure reading (>120/80) during this emergency department visit, lab results, the need for outpatient follow up, for definitive care, a family practitioner, to return to the emergency department if symptoms worsen or persist or if there are any questions or concerns that arise at home. Medication response: Normal saline. Response to treatment: the patient's symptoms have resolved after treatment. ED course: Labs reviewed and were unremarkable. Patient reports she does not have any symptoms and is feeling much better and back to normal after liter of fluids. Recommended patient get TB read in 48 to 72 hours and neck level All questions answered. 12/02 14:38 Order name: Basic Metabolic Panel; Complete Time: 15:36 [facility] 12/02 14:38 Order name: CBC with Diff; Complete Time: 15:25 [facility] 12/02 14:38 Order name: Troponin HS; Complete Time: 15:36 [facility] 12/02 14:38 Order name: XRAY Chest (1 view); Complete Time: 15:10 [facility] 12/02 14:38 Order name: Cardiac monitoring; Complete Time: 15:08 [facility] 12/02 14:38 Order name: EKG - Nurse/Tech; Complete Time: 15:08 [facility] 12/02 14:38 Order name: IV Saline Lock; Complete Time: 15: [facility] 12/02 14:38 Order name: Labs collected and sent; Complete Time: 15:08 [facility] 12/02 14:38 Order name: O2 Per Protocol; Complete Time: 15:08 [facility] 12/02 14:38 Order name: O2 Sat Monitoring; Complete Time: 15:08 dr5 EC:05 Rate is 77 beats/min. Rhythm is regular. QRS [place] is Normal. SD interval is normal at dr5 116 msec. QRS interval is normal at 92 msec. QT interval is normal at 408 msec. Administered Medications: 15:14 Drug: NS 0.9% IV 1000 ml IV at 1000 ml once; to be given as a bolus over 60 minutes ld1 Route: IV; Rate: 1000 ml; Site: right antecubital; 15:14 Drug: Ondansetron IVP 4 mg IVP once; over 2 minutes Route: IVP; Site: right antecubital;ld1 Disposition Summary: 12/02/24 16:45 Discharge Ordered Notes: Location: Home dr5 Condition: Stable dr5 Diagnosis - Dehydration dr5 - Syncope Near dr5 Followup: dr5 - With: Emergency Department - When: As needed - Reason: Worsening of condition Followup: dr5 - With: Private Physician - When: 1 - 2 days - Reason: Recheck today's complaints, Continuance of care, Re-evaluation by your physician Discharge Instructions: - Discharge Summary Sheet dr5 - Dehydration, Adult dr5 - Syncope dr5 Forms: - Medication Reconciliation Form dr5 - Patient Portal Instructions dr5 - Leadership Thank You Letter dr5 Addendum: 12/06/2024 15:32 Co-signature as Attending Physician, Mauri Mason MD I agree with the assessment and c elmore plan of care. Signatures: Dispatcher [employer] EDMS Mauri Mason MD MD cha Sims, Lauren, RN RN ld1 Drea Loredo RN RN db Buck Xavier, RISK CONTROL CONSULTANT-C RISK CONTROL CONSULTANT-Cdr5 Corrections: (The following items were deleted from the chart) 12/02 14:38 14:38 Chest Single View+RAD.RAD.BRZ ordered. [facility] DAISYID
--- NOTE | 2024-12-02 16:45 | ER ---
Nurse's Notes [facility] Name: Renetta Martin Age: 24 yrs Sex: Female : 2000 Arrival Date: 12/02/2024 Time: 14:18 Bed 11 Private MD: Diagnosis: Dehydration;Syncope Near Presentation: 12/02 14:35 Chief complaint: EMS states: SYNCOPAL EPISODE WHILE RECEIVING TB TEST. WITNESSED BY db STAFF. Coronavirus screen: Client denies travel out of the [place] in the last 14 days. At this time, the client does not indicate any symptoms associated with coronavirus-19. Ebola Screen: Patient negative for fever greater than or equal to 101.5 degrees Fahrenheit, and additional compatible Ebola Virus Disease symptoms Patient denies exposure to infectious person. Patient denies travel to an Ebola-affected area in the 21 days before illness onset. No symptoms or risks identified at this time. Initial Sepsis Screen: Does the patient meet any 2 criteria? No. Patient's initial sepsis screen is negative. Does the patient have a suspected source of infection? No. Patient's initial sepsis screen is negative. Risk Assessment: Do you want to hurt yourself or someone else? Patient reports no desire to harm self or others. Onset of symptoms was December 02, 2024. 14:35 Method Of Arrival: EMS: [facility] db 14:35 Acuity: IRENE 3 db 14:40 Care prior to arrival: Glucose check: 88. db Triage Assessment: 14:39 General: Appears in no apparent distress. comfortable, Behavior is calm, cooperative. db Pain: Denies pain. Neuro: Level of Consciousness is awake, alert, obeys commands, Oriented to person, place, time, situation, Reports a syncopal episode. Respiratory: Airway is patent Respiratory effort is even, unlabored, Respiratory pattern is regular, symmetrical. 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 - Infectious Disease History:: Denies. - Social history:: Smoking status: unknown. Screenin:08 [facility] ED Fall Risk Assessment (Adult) History of falling in the last 3 months, ld1 including since admission No falls in past 3 months (0 pts) Confusion or Disorientation No (0 pts) Intoxicated or Sedated No (0 pts) Impaired Gait No (0 pts) Mobility Assist Device Used No (0 pt) Altered Elimination No (0 pt) Score/Fall Risk Level 0 - 2 = Low Risk Oriented to surroundings, Maintained a safe environment, Educated pt \T\ family on fall prevention, incl call for assistance when getting out of bed, Assessed \T\ reinforced patient's understanding of fall precautions, Provided non-skid footwear, Hourly rounding (assess needs \T\ fall precautionary measures) done, Used ambulatory aids as needed (educated on \T\ assisted with), Used gait belt as appropriate. Abuse screen: Denies threats or abuse. Denies injuries from another. Nutritional screening: No deficits noted. Tuberculosis screening: No symptoms or risk factors identified. Assessment: 15:08 General: Appears in no apparent distress. comfortable, Behavior is calm, cooperative, ld1 appropriate for age. Pain: Denies pain. Neuro: Level of Consciousness is awake, alert, obeys commands, Oriented to person, place, time, situation. Cardiovascular: Capillary refill < 3 seconds Patient's skin is warm and dry. Rhythm is sinus rhythm. Respiratory: Airway is patent Respiratory effort is even, unlabored. GI: Abdomen is flat, non-distended. : No signs and/or symptoms were reported regarding the genitourinary system. EENT: No signs and/or symptoms were reported regarding the EENT system. Derm: No signs and/or symptoms reported regarding the dermatologic system. Musculoskeletal: No signs and/or symptoms reported regarding the musculoskeletal system. Vital Signs: 14:35 BP 103 / 59; Pulse 66; Resp 16; Temp 98.6(O); Pulse Ox 100% ; Weight 49.9 kg; Height 5 db ft. 5 in. ; Pain 0/10; 15:08 BP 100 / 59; Pulse 64; Resp 18; Pulse Ox 99% on R/A; Pain 0/10; ld1 14:35 Body Mass Index 18.30 (49.90 kg, 165.1 cm) db 14:35 Pain Scale: Adult db 15:08 Pain Scale: Adult ld1 ED Course: 14:37 Patient arrived in ED. db 14:37 Buck Xavier FNP-C is PHCP. dr5 14:37 Mauri Mason MD is Attending Physician. dr5 14:39 Triage completed. db 14:39 Arm band placed on Patient placed in an exam room. db 14:51 XRAY Chest (1 view) In Process Unspecified. EDMS 15:08 Ailyn Leigh, RN is Primary Nurse. ld1 15:08 Patient has correct armband on for positive identification. Placed in gown. Bed in low ld1 position. Call light in reach. Side rails up X2. Pulse ox on. NIBP on. bus monitor on. Door closed. Noise minimized. Warm blanket given. 15:08 No provider procedures requiring assistance completed. Inserted saline lock: 20 gauge ld1 in right antecubital area, using aseptic technique. Blood collected. Flushed with 10 mL NS. 16:48 IV discontinued, intact, bleeding controlled, No redness/swelling at site. ld1 Administered Medications: 15:14 Drug: NS 0.9% IV 1000 ml IV at 1000 ml once; to be given as a bolus over 60 minutes ld1 Route: IV; Rate: 1000 ml; Site: right antecubital; 15:14 Drug: Ondansetron IVP 4 mg IVP once; over 2 minutes Route: IVP; Site: right antecubital;ld1 Medication: 15:08 VIS not applicable for this client. ld1 Outcome: 16:45 Discharge ordered by . dr5 16:48 Discharged to home ambulatory, with family, ld1 16:48 Condition: stable 16:48 Discharge instructions given to patient, Instructed on discharge instructions, follow up and referral plans. Demonstrated understanding of instructions, follow-up care, 16:48 Patient left the ED. ld1 Signatures: Dispatcher [employer] EDAR Ailyn Leigh, RN RN ld1 Drea Loredo RN RN db Buck Xavier FNP-C FNP-Cdr5
[2024-12-02 16:59] VITALS: TEMP 98.6
[2024-12-02 17:10] VITALS: BP 127/93; O2SAT 100
--- NOTE | 2024-12-12 11:21 | EKG ---
Test Date: 2024-12-02 Test Time: 15:05:25 Rod And Tube Straightener: Aarti TENA MEASUREMENT RESULTS: Intervals: Rate: 77 MS: 116 QRSD: 92 QT: 408 QTc: 461 [place]: P: 56 MS: 116 QRS: 94 T: 72 INTERPRETIVE STATEMENTS: Normal sinus rhythm with sinus arrhythmia Normal ECG Compared to ECG 12/02/2024 15:01:23 No significant changes Electronically Signed On 12-12-24 11:06:25 FISH ROD MAKER by Willam Mckeon
--- NOTE | 2024-12-12 11:21 | EKG ---
Test Date: 2024-12-02 Test Time: 15:01:23 Business Line Manager: Aarti TENA MEASUREMENT RESULTS: Intervals: Rate: 0 [place]: QRSD: 0 QT: 0 QTc: 0 [place]: P: WI: QRS: 0 T: 0 INTERPRETIVE STATEMENTS: No QRS complexes found, no ECG analysis possible Compared to ECG 06/08/2012 16:13:42 Sinus rhythm no longer present Electronically Signed On 12-12-24 11:06:27 FORM SETTER STEEL PAN FORMS by Willam Mckeon
== END 2024-12-02 16:48 | disposition home or self-care (01) ==
LOC: ER 14:18
DX: E86.0 Dehydration (principal)
CPT/HCPCS: 93005 ×2; 85025; 80048; 36415; 84484; 71045; 96374; 99285; J2405; J7030

== ENCOUNTER 2025-01-25 11:49 | Emergency (ER) | payer BC ==
--- OUTSIDE RECORDS SUMMARY | 2025-01-25 11:53 | XMS REPORT | Continuity of Care Document ---
Author Name Unknown Address [address] [facility] [place] [address] [facility] thconnect Address [address] [facility] [place] [address] Care Team Providers Care Automobile Damage Appraiser Name Role Phone LINDEN ZIMMERMAN Primary Care Physician ALFRED Diego Attending Clinician Unavail able ALFRED BRAGG Attending Clinician Unavail able Doctor Unassigned, [place] Attending Clinician U Muriel Price Attending Clinician Unavailable Doctor Unassigned, [place] Attending Clinician U navailable Provider, [facility] Attending Clinician Un available Mary Anne Serna Attending Clinician Lab, Adc Fam Pob I Attending Clinician Unavailab MARY ANNE Marin Attending Clinician Unavailable Alfred Bragg MD Attending Clinician Muriel De Los Santos Admitting Clinician Unavailable Payers Payer Name Policy Type Policy Number Effective Date Expirati on Date Source Problems Condition Name Condition Details Condition Category Status Onset Date Resolution Date Last Treatment Date Treating Clinician Comments Source No known active problems No known active problems Disease [facility] Allergies, Adverse Reactions, Alerts Allergy Name Allergy Type Status Severity Reaction(s) Onset Date Inactive Date Treating Clinician Comments Source Penicill ins DA Active MO RASH 12-24 00:00: 00 [facility] [place] [facility] Penicill ins DA Active MO RASH 12-06 00:00: 00 [facility] [place] [facility] PENICILL IN DA Active U RASH, SWELLING 07-31 00:00: 00 [facility] Penicill ins Propensi ty to adverse reaction s Active Rash 06-19 00:00: 00 [facility] PENICILL INS Drug Class Active Rash 06-19 00:00: 00 [facility] Penicill ins Propensi ty to adverse reaction s Active Rash 06-19 00:00: 00 [facility] PENICILL IN DA Active U 07-22 00:00: 00 [facility] Social History Social Habit Start Date Stop Date Quantity Comments Source History SDOH Alcohol Std Drinks [facility] History SDOH Alcohol Binge [facility] Exposure to SARS-CoV-2 (event) 2021-02-24 00:00:00 2021-03-26 10:34:00 Yes [facility] Alcohol intake 2021-03-26 00:00:00 2021-03-26 00:00:00 Lifetime non-drinker (finding) [facility] History of Social function 2021-03-26 00:00:00 2021-03-26 00:00:00 [facility] History SDOH Alcohol Frequency 2019-05-24 00:00:00 2019-05-24 00:00:00 1 [facility] Tobacco use and exposure 2017-10-07 00:00:00 2017-10-07 00:00:00 Smokeless tobacco non-user [facility] Sex assigned at 2000 00:00:00 2000 00:00:00 [facility] Smoking Status Start Date Stop Date Source Never smoked tobacco [facility] Medications Ordered Medication Name Filled Medication Name Start Date Stop Date Current Medication? Ordering Clinician Indication Dosage Frequency Signature (SIG) Comments Components Source MUPIROCIN 2 % TOPICAL OINT 03-26 19:38: 36 03-26 00:00 :00 No None Entered [facility] topiramate 25 mg tablet 2018-11 00:00: 00 Yes [id number] 25mg Take 1 tablet by mouth 2 (two) times daily. [facility] TOPIRAMATE 25 mg tablet 07-19 00:00: 00 Yes [id number] TAKE 1 TABLET BY MOUTH TWICE DAILY [facility] MUPIROCIN 2 % TOPICAL OINT 05-24 13:19: 43 Yes None Entered [facility] topiramate 25 mg tablet 05-24 00:00: 00 07-18 00:00 :00 No [id number] 25mg Take 1 tablet by mouth 2 (two) times daily. [facility] Immunizations Ordered Immunization Name Filled Immunization Name Date Status Comments Source SARS-COV-2 COVID-19 RICKI/J&J VACCINE 2021-02-07 00:00:00 Completed [facility] SARS-COV-2 COVID-19 RICKI/J&J VACCINE Unknown Completed [facility] Vital Signs Vital Name Observation Time Observation Value Comments S ource Systolic blood pressure 2021-03-26 18:33:00 102 mm[Hg] [facility] Diastolic blood pressure 2021-03-26 18:33:00 72 mm[Hg] [facility] Heart rate 2021-03-26 18:33:00 89 /min [facility] Body temperature 2021-03-26 18:33:00 37 Delia [facility] Body height 2021-03-26 18:33:00 165.1 cm [facility] Body weight 2021-03-26 18:33:00 52.164 kg [facility] BMI 2021-03-26 18:33:00 19.14 kg/m2 [facility] Oxygen saturation in Arterial blood by Pulse oximetry 2021-03-26 18:33:00 98 /min [facility] Procedures Procedure Date / Time Performed Performing Clinicia n Source [id number] 2021-12-25 00:00:00 [facility] [id number] 2021-12-25 00:00:00 [facility] [id number] 2021-12-25 00:00:00 [facility] [id number] 2021-12-25 00:00:00 [facility] [id number] 2021-12-25 00:00:00 [facility] DELEGATION OF CONSENT FOR MEDICAL TREATMENT OF A MINOR 2017-10-07 06:01:00 Doctor Unassigned, [place] [facility] Encounters Start Date/Time End Date/Time Encounter Type Admission Type Attending [facility] Care Facility Care Department Encounter ID Source 2017-10-07 00:00:00 2025-01-14 03:34:00 Orders Only Doctor Unassigned, [place] Doctor Unassigned, [place] [facility] [id number] 350.1.13.10 4.2.7.2.686 [id number] [facility] 2021-12-24 12:37:00 2021-12-27 13:10:00 Inpatient EM Muriel De Los Santos [facility] OBPP [id number] [facility] 2021-12-06 15:29:00 2021-12-06 16:40:00 Emergency EM Muriel De Los Santso [facility] ESTELITA [id number] [facility] 2021-07-31 02:46:00 2021-08-01 16:00:00 Emergency EM Muriel De Los Santos [facility] OBANTE [id number] [facility] [place] [facility] 2021-03-29 00:00:00 2021-03-29 00:00:00 Patient Secure Msg Doctor Unassigned, [place] [facility] 1.84.114 350.1.13.10 4.2.7.2.686 [id number] [facility] 2021-03-26 13:28:23 2021-03-26 13:48:23 Urgent Care Provider, [facility] 1.114 350.1.13.10 4.2.7.2.686 [id number] [facility] 2021-03-26 13:20:00 2021-03-26 13:20:00 Outpatient R [facility] [id number] [facility] 2021-03-26 13:00:00 2021-03-26 13:00:00 Outpatient R [facility] [id number] [facility] 2021-02-07 14:15:00 2021-02-07 14:15:00 Outpatient [facility] [id number] [facility] 2020-12-24 10:46:19 2020-12-24 11:06:19 Laboratory Only Lab, [facility] 1..114 350.1.13.10 4.2.7.2.686 [id number] [facility] 2020-12-24 10:46:19 2020-12-24 11:06:19 Laboratory Only Lab, [facility] .84.114 350.1.13.10 4.2.7.2.686 [id number] 2020-12-24 10:40:00 2020-12-24 10:40:00 Outpatient R JINGLISETH MARY ANNE [facility] [id number] [facility] 2020-11-09 14:04:34 2020-11-09 14:24:34 Laboratory Only Lab, [facility] Office [facility] One 1.2.840.114 350.1.13.10 4.2.7.2.686 [id number] 2020-11-09 14:04:34 2020-11-09 14:24:34 Laboratory Only Lab, [facility] 1.2.840.114 350.1.13.10 4.2.7.2.686 [id number] [facility] 2020-11-09 14:00:00 2020-11-09 14:00:00 [id number] 2019-07-18 00:00:00 2019-07-18 00:00:00 Blessingwilbur Bowerochjayla [facility] 1.2.840.114 350.1.13.10 4.2.7.2.686 [id number] 2019-07-18 00:00:00 2019-07-18 00:00:00 Lavinia Bragg [facility] 1.2.840.114 350.1.13.10 4.2.7.2.686 [id number] [facility] Results Test Description Test Time Test Comments Results Result Co mments Source AB HEPATITIS C [id number] 20:25:00* Test Item Value Reference Range Interpretation Comme nts AB HEPATITIS C (test code = HCVAB) NONREACTIVE NONREACTIVE SIGNAL TO CUTOFF (test code = CUTOFF) <0.02 <0.80 N AB [id number] 20:25:00* Test Item Value Reference Range Interpretation Comme nts AB TREPONEMA (test code = TREPAB) NONREACTIVE NONREACTIVE AB HIV 1 20:25:00* Test Item Value Reference Range Interpretation Comme nts AB HIV 1 2 (test code = RTE22TS) NONREACTIVE NONREACTIVE Done by [employer] 4[employer] HIV Ag/Ab Combo Screen CBC W/AUTO [id number] 18:18:00* Test Item Value Reference Range Interpretation [...] PLTMR) NORMAL NORMAL COVID 19 Asymptomatic IH [id number] 17:40:00* Test Item Value Reference Range Interpretation [...] testsfor detection and/or diagnosis of COVID-19 under Pfernbg783(b)(1) of the Act, 21 U.S.C. 360bbb-3(b)(1), unless theauthorization is terminated or revoked sooner. - FET BIO PH PA W/O [id number] 00:00:00 [facility] 2000 Sex: F Patient Name: DRE GARCIA Unit No: [id number] EXAMS: CPT CODE: [id number] US FET BIO PH PA W/O [id number] PROCEDURE INFORMATION: Exam: US Biophysical Profile Without Non-Stress Test Exam date and time: 12/06/2021 4:14 PM Age: 21 years old Clinical indication: Screening exam; Routine US screening of fetus; Third trimester (=28 weeks 0 days); ; Additional info: Iup at 36.2 weeks decreased fm TECHNIQUE: Imaging protocol: US biophysical profile without non-stress testing. COMPARISON: OTUS LTD 07/30/2021 4:05 PM FINDINGS: Gestation: A [...] 2/2 Qualitative amniotic fluid: 2/2 Biophysical Profile Score:8/8 IMPRESSION: Biophysical profile score of 8/8. Electronically Signed by Hank Wolf MD on 0 12/06/2021 at 1649 Reported and signed by: Hank Wolf MD CC: Muriel De Los Santos MD; Emory Conrad MD Technologist: Alexus Ramirez RDMS Probe: Trnscrbd D/ (1649) GCD.CPS Orig Print D/T: S: 12/06/2021 (1650) [facility] NAME: DRE GARCIA Radiology DepartmentPHYS: Emory Patterson [address] : 2000 AGE: 21 SEX: F [place], [place] [address]IGJQ NO: [id number] LOC: NeilESTELITA PHONE #: [phone] EXAM DATE: 12/06/2021 STATUS: REG ER FAX #:[phone] RAD NO: Page 1 Signed Report Patient Name: DRE GARCIA Unit No: [id number] EXAMS: CPT CODE: [id number] US FET BIO PH PA W/O NST 25089 <Continued> [facility] NAME: DRE GARCIA Radiology Department PHYS: Emory Patterson [address] : 2000 AGE: 21 SEX: F [place], [place] [address] LOC: Wandy.ESTELITA PHONE #: [phone] EXAM DATE: 12/06/2021 STATUS: REG ER FAX #: [phone] RAD NO: Page 2 Signed ReportCOVID 19 Asymptomatic IH [id number] 23:51:00* Test Item Value Reference Range Interpretation [...] testsfor detection and/or diagnosis of COVID-19 under Fyjqfgz001(b)(1) of the Act, 21 U.S.C. 360bbb-3(b)(1), unless theauthorization is terminated or revoked sooner. [id number] 16:34:00* Test Item Value Reference Range Interpretation Comme nts AMYLASE (test code = ENRICO) 47 units/L 30-110 N COMPREHENSIVE METABOLIC [id number] 16:34:00* Test Item Value Reference Range Interpretation [...] ALKP) 64 units/L 46-116 N CBC W/AUTO [id number] 14:48:00* Test Item Value Reference Range Interpretation [...] NORMAL NORMAL UA RFLX MICR CULT IF [id number] 14:40:00* Test Item Value Reference Range Interpretation [...] PainSpecimen Description: CLEAN CATCH- MRI ABDOMEN W/O [id number] 00:00:00 [facility] 2000 Sex: F Patient Name: DRE GARCIA Unit No: [id number] EXAMS: CPT CODE: [id number] MRI ABDOMEN W/O CONT [id number] PROCEDURE INFORMATION: Exam: MR Abdomen Without Contrast Exam date and time: 07/30/2021 5:58 PM Age: 21 years old Clinical indication: Right lower quadrant abdominal pain TECHNIQUE: Imaging protocol:MR of the abdomen without contrast. COMPARISON: 1. [...] of acute appendicitis. No findings are present onthis exam within the right lower quadrant to correspond with findings reported on current limited abdominal ultrasound. Intraperitoneal space: No significant peritoneal fluid. Arteries: No abdominal aortic aneurysm. Urinary bladder: The urinary bladder is unremarkable. Reproductive: Gravid uterus, single fetus. Fundal placenta, no previa. The ovaries are unremarkable. Lymph nodes: No adenopathy. Bones/joints: No significant skeletal abnormality. Normal intervertebral disc signal and morphology.Soft tissues: No significant abnormality. IMPRESSION: No acute finding. at 2011 Reported and signed by: Anant Qiu MD CC: Myla Londono MD; Parth Villanueva MD; Muriel De Los Santos MD Technologist: Jeff Cottrell, RT,MR,CT Trnscrbd D/ (2010) GCD.CPS Orig Print D/T: S: 07/30/2021 (2010) [facility] NAME: DRE GARCIA Radiology Department PHYS: Myla Sanchez MD [address] : 2000 AGE: 21 SEX: F [place], [place] [address] LOC: FJiERS PHONE #: [phone] EXAM DATE: 07/30 STATUS: REG ER FAX #: [phone] RAD NO: Page 1 Signed Report- US ABDOMEN [id number] 00:00:00 [facility] 2000 Sex: F Patient Name: DRE GARCIA Unit No: [id number] EXAMS: CPT CODE: [id number] US ABDOMEN LTD 86502 PROCEDURE INFORMATION: Exam: US Abdomen, Limited; Appendix Exam date and time: 07/30/2021 3:57 PM Age: 21years old Clinical indication: Other: Rlq pain x [...] Talita Ordoñez RDMS, RVT Probe: Trnscrbd D/ (2558) GCD.CPS Orig Print D/T: S: 07/30/2021 (5001) [facility] NAME: RADHA,[place] Radiology Department PHYS: Parth Watkins [address] : 2000 AGE: 21 SEX: F [place] [address] LOC: TAYLOR PHONE #: [phone] EXAM DATE: 07/30/2021 STATUS: REG ER FAX #: [phone] RAD NO: Page 1 Signed Report Patient Name: DRE GARCIA Unit No: [id number] EXAMS: CPT CODE: [id number] US ABDOMEN LTD 17692 <Continued> [facility] NAME: RDAHA,[place] Radiology Department PHYS: Parth Watkins [address] : 2000 AGE: 21 SEX: F [place] [address] LOC: TAYLOR PHONE #: [phone] EXAM DATE: 07/30/2021 STATUS: REG ER FAX #: [phone] RAD NO: Page 2 Signed Report- US ABDOMEN [id number] 00:00:00 [facility] : 2000 Sex: F Patient Name: DRE GARCIA Unit No: [id number] Report Has Been Amended EXAMS: CPT CODE: [id number] US ABDOMEN LTD 44688 Addendum - 07/30/2021 SIGNED 07/30/2021 ADDENDUM: [id number] US/USABDLTD Addendum: Additional imaging by myself (Dr. [...] Stoll by phone 5:20 p.m. 07/30/2021. at 1296 Reported and signed by: MD Sterling Transcribed: 07/30/2021 (1729) GCD.CPS Report PROCEDURE INFORMATION: Exam: US Abdomen, Limited; Appendix Exam date and time: 07/30/2021 3:57 PM Age: 21 years old Clinical indication: Other:Rlq pain x 8 days; ; Additional info: [...] and signed by: Tucker Ambrosio MD [facility] [place] [facility] NAME: [facility] Radiology Department PHYS: Parth Watkins [facility] [place] : 2000 AGE: 21 SEX: F [place] [address] LOC: NeilERS PHONE #: [phone] EXAM DATE: 07/30/2021 STATUS: REG ERFAX #: [phone] RAD NO: Page 1 Signed Report (CONTINUED) Patient Name: RADHA,[place] Unit No: [id number] Report Has Been Amended EXAMS: CPT CODE: [id number] ABDOMEN LTD 56841 <Continued> CC: Parth Villanueva MD; Muriel De Los Santos MD Technologist: Talita Ordoñez RDMS, RVT Probe: Trnscrbd D/ (170) GCD.CPS Orig Print D/T: S: 07/30/2021 (170) [facility] [place] [facility] NAME: [facility] Radiology Department PHYS: Parth Watkins [facility] FanninDOB: 2000 AGE: 21 SEX: F [place] [address] LOC: NeilERS PHONE #: [phone] EXAM DATE: 07/30/2021 STATUS: REG ER FAX #: [phone] RAD NO: Page 2 Signed Report Patient Name: DRE GARCIA Unit No: [id number] Report Has Been Amended EXAMS: CPT CODE: [id number] ABDOMEN LTD 05405 <Continued> [facility] [place] [facility] NAME: [facility] Radiology Department PHYS: Parth Watkins [address] : 2000 AGE: 21 SEX: F [place] [address] LOC: TAYLOR PHONE #: [phone] EXAM DATE: 07/30/2021 STATUS: GIL ER FAX #: [phone] RAD NO: Page 3 Signed Report- US [id number] 00:00:00[facility] : 2000 Sex: F Patient Name: DRE GARCIA Unit No: [id number] EXAMS: CPT CODE: [id number] US LTD 69746 PROCEDURE INFORMATION: Exam: US , Limited Exam [...] Placenta location: The placenta is posterior, non-previa withoutsigns of retroplacental hemorrhage. The cervix is closed [...] Posterior placenta, grade 1, without previa or retroplacentalhemorrhage. 3. The cervix is closed measuring 4.4 cm in length. 4. Normal-sized maternal right ovary without focal lesion. Nonvisualized left ovary. 5. No free fluid. at 1716 Reported and signed by: Moses Mayorga MD CC: Parth Villanueva MD; Muriel De Los Santos MD Technologist: Talita Ordoñez RDMS, RVT Probe: TrnscrbdD/ (171) GCD.CPS Orig Print D/T: S: 07/30/2021 (171) [facility] NAME: DRE GARCIA Radiology Department PHYS: LISA VillanuevaParth [address] [place] [address] : 2000 AGE: 21 SEX: F [place] [address] LOC: NeilERS PHONE #: [phone] EXAM DATE: 07/30/2021 STATUS: REG ER FAX #: [phone] RAD NO: Page 1 Signed Report Patient Name: DRE GARCIA Unit No: [id number] EXAMS: CPT CODE: [id number] LTD 40416 <Continued> [facility] [place] [facility] NAME: DRE GARCIA Radiology Department PHYS: LISA Villanueva Parth [address] [place] [address] : 2000 AGE: 21 SEX: F [place] [address] LOC: NeilERS PHONE #: [phone] EXAM DATE: 07/30/2021 STATUS: REG ER FAX #: [phone] RAD NO: Page2 Signed Report Notes Date/Time Note Provider Source 2022-01-05 20:53:00 [id number] [address] PATIENT NAME: DRE GARCIA ADMIT DATE: 12/24/21 ACCOUNT NO: [id number] ROOM NO: [facility] AGE: 21 SEX: F ADMITTING PHYSICIAN: Muriel De Los Santos MD ATTENDING PHYSICIAN: Muriel De Los Santos MD Provider Query QUERY TEXT: Condition General 360MD Query related questions should be directed to:[facility] Coding Query Helpline Based on your medial judgement and above mentioned clinical indicators, kindly clarify the diagnosis of laceration as, Hymenal ring laceration, Vaginal wall laceration, Other more appropriate diagnosis, Clinically unable to determine The patient's Clinical Indicators include: Perineal laceration(s): bilateral hymenal ring/vaginal wall lacerations - OB Delivery Note 12/25/2021 Vaginal delivery- OB Delivery Note 12/25/2021 Laceration repair: yes, 2-0 suture- OB Delivery Note 12/25/2021 Small bilateral hymenal ring/vaginal wall lacerations repaired with 2-0 vicryl on SH- OB Delivery Note 12/25/2021 Options provided: -- Respond - Create new note now -- Dismiss - Not applicable / Not valid -- Dismiss - Clinically unable to determine / Unknown -- Assign to another provider QUERY RESPONSE: Patient had as described a bilateral vaginal wall laceration. Query created by: Jacobo Durán on 12/31/2021 5:15 AM at 2053 PATIENT NAME: DRE GARCIA [facility] 2021-12-26 08:33:[address] [facility] OB Disch REPORT#:[id number] REPORT STATUS: Signed DATE:12/26/21 TIME: 832 PATIENT: DRE GARCIA UNIT #: [id number] ROOM/BED: [address] : [birth year] AGE: 21 SEX: F ATTEND: Muriel De Los Santos MD ADM AUTHOR: Catrina Simmons MD * ALL edits or amendments must be made on the electronic/computer document * Subjective Subjective Admission EGA: Weeks: 38 Days: 6 EGA at delivery (wks/days): 39 weeks Status/day: post (day #1) Patient reports: Comments: Doing well, minimal soreness at laceration site but pain overall well controlled. Voiding freely, tolerating regular diet. without difficulty. Baby doing well at bedside. Objective General VS: Vital Signs Date Temp Pulse Resp B/P B/P Mean Pulse Ox FiO2 12/25 97.7-99.8 55-104 16-18 103-192/57-93 75.0-116.0 94-100 Last Documented: Result Date Time B/P 129/85 12/25 230 Temp 97.9 12/25 230 Pulse 76 12/25 2300 Resp 18 12/25 2300 Pulse Ox 99 12/25 1715 B/P Mean 94.0 12/25 1616 PATIENT WEIGHT: Weight (lb): 139 Weight (oz): 5.31 Weight (kg): 63.200 Physical Exam Lungs: unlabored breathing Neuro: Exam: alert, oriented x3, normal speech Abdomen: post gravid, soft, no abnormal tenderness, no guarding Incision site: none Uterus: involution appropriate, non-tender Fundus: below the umbilicus, non-tender Lower extremities: Edema: none Calf tenderness: negative Discharge Summary General Free Text A P: 21y s/p TSVD after mIOL d/t oligohydramnios 1. PPD#1: Pt doing well, meeting all milestones. Baby doing well at bedside. 2. Rh+/RI/, GBS neg, COVID neg 3. PMH: denies 4. PSH: ovarian cystectomy Dispo: Routine care. Anticipate discharge PPD#1/2 pending baby Assessment: nml progress Date of admission: Date of admission: 12/24/21 Admission diagnosis: Oligohydramnios Hospital course: induction of labor, spontaneous vag delivery, nml postop/ postpart care Procedures: spontaneous vaginal deliv Discharge condition: stable Discharge to: Home/Self Care Discharge diagnosis: full-term uncomp delivery Discharge management: greater than 30 mins Baby A: Vaginal delivery: spontaneous status: live born Gender: female 1 minute: 8 5 minutes: 9 Plan: routine care Vaginal packing at delivery: No Discharge Instructions Instructions: routine instr sheet given Diet: Regular Activity: No [place] for 6 Wks Additional discharge routines: Attending Follow-Up Contraception discussed: abstinence for 4-6 weeks, will discuss at PP visit Discharge meds: Stop taking the following medications: HYDROcodone/APAP (NORCO 5/325) 1 TAB TAB 1 TABLET ORAL EVERY 6 HOURS NEEDED. as needed for SEVERE PAIN (SCALE 7- 10) Qty = 20 Continue taking these medications: NITROFURANTOIN/NITROFURAN MAC (MACROBID) 100 MG CAP 100 MILLIGRAM ORAL EVERY 12 HOURS. Days = 10 Qty = 20 Start taking the following new medications: IBUPROFEN ([facility] 100 MG/5 ML) 100 MG/5 ML ORAL.SUSP 600 MILLIGRAM ORAL EVERY 6 HOURS NEEDED. as needed for FOR PAIN SCALE 1-3 Qty = 60 No Refills DOCUSATE SODIUM (COLACE 50 MG/5 ML) 50 MG/5 ML LIQUID 200 MILLIGRAM ORAL BEDTIME. Qty = 30 No Refills Prescriptions: e-prescribe Add'l Follow-up Appointments Attending Physician: Attending Physician: Muriel De Los Santos MD Attending physician follow up timeframe: In 5-6 weeks at 0937 RPT #:[id number] END OF REPORT [facility] 2021-12-25 14:10:00 [facility] OB Delivery Note REPORT#:[id number] REPORT STATUS: Signed DATE:12/25/21 TIME: 1410 PATIENT: DRE GARCIA UNIT #: [id number] ROOM/BED: [address] : [birth year] AGE: 21 SEX: F ATTEND: Muriel De Los Santos MD ADM AUTHOR: Radha Millan MD * ALL edits or amendments must be made on the electronic/computer document * OB Delivery Nursing Documentation Review Nursing data: The data set between the solid lines has been imported from nursing documentation. Any exceptions have been noted below under Provider comments. _ ROM date: 12/25/21 ROM time: 0651 Membranes rupture method: AROM Amniotic fluid color: Clear Amniotic fluid amount: Steroids prior to arrival: Antibiotic prophylaxis given: Post hemorrhage risk score: Low Risk for Hemorrhage Delivery date infant A: Delivery time infant A: Birthweight (gm) infant A: Weight (lb) A: Weight (oz) infant A: Gender A: Female 1 minute infant A: 5 minutes A: 10 minutes A: Cord pH obtained infant A: Vacuum time A: Vacuum # pulls A: Vacuum # popoffs infant A: QBL at delivery: __ Provider comments on imported nursing data: [] Pre-delivery GBS status: GBS status: negative evaluation at delivery: NRP certified personnel Admission EGA: Weeks: 38 Days: 6 EGA at delivery (wks/days): 39 weeks Baby A Information Baby A information Delivery date: 12/25/21 Delivery time: 1355 status: live born Wt of baby: not yet available Gender: female 1 minute: 8 5 minutes: 9 Presentation: vertex ABG details Baby A Cord blood gases: not collected Nuchal cord Baby A Nuchal cord: yes (tight,deliv.through) Vaginal Delivery Vaginal delivery: Labor: induced Medications/Devices used: oxytocin Vaginal delivery: spontaneous Amniotic fluid: clear Anesthesia type: epidural anesthesia Episiotomy: none Episiotomy repair: not applicable Laceration repair: yes, 2-0 suture Placenta: spontaneous Post delivery meds used: oxytocin Count: correct, vag exam neg for sponges Vaginal packing: No Mother's condition: mother stable 's condition: infant stable in room Lacerations: Perineal laceration(s): bilateral hymenal ring/vaginal wall lacerations Additional comments: As the head crowned and delivered, the perineum was protected with blue towel. The anterior shoulder delivered with gentle downward traction and posterior shoulder with gentle upward traction. A nuchal cord x1 was noted. The was bulb suctioned, after 1 minute the cord clamped and cut, then handed to the waiting mother. Cord blood was collected for MDA. Umbilical cord avulsed from placenta; placenta manually removed and intact. Hemostasis achieved with fundal massage and IV pitocin. Small bilateral hymenal ring/vaginal wall lacerations repaired with 2-0 vicryl on SH. Sponge, lap, and needle counts correct x 2, lap scan negative. Good maternal- bonding noted Blood Loss/Details Blood loss at delivery: <1K: no sx hypovol=no hem EBL at delivery (ml's): 300 at 1414 RPT #:[id number] END OF REPORT [facility] 2021-12-24 17:45:[address] [facility] Clinical Note REPORT#:[id number] REPORT STATUS: Signed DATE:12/24/21 TIME: 1745 PATIENT: DRE GARCIA UNIT #: [id number] ROOM/BED: [address] : 00 AGE: 21 SEX: F ATTEND: Muriel De Los Santos MD ADM AUTHOR: Linden Edgar MD * ALL edits or amendments must be made on the electronic/computer document * Clinical Note Note: See H P in paper chart for full details 21y G1 at 38w6d admitted for mIOL d/t oligohydramnios 1. mIOL - oligohydramnios - MELYSSA 3.1cm - pelvis adequate - epidural prn - plan for cervical ripening then pit 2x2 ( in office), pt states that she doesn't do well with swallowing pills, discussed plan for PV cytotec 2. Rh+/RI/, GBS neg, COVID pending 3. PMH: denies 4. PSH: ovarian cystectomy 5. OB: baby girl! EFW 6lb6oz 7. Admit to APU until L D staffing available. at 1808 RPT #:[id number] END OF REPORT [facility] 2021-12-06 15:39:00 [facility] ([facility]) Clinical Note REPORT#:[id number] REPORT STATUS: Signed DATE:12/06/21 TIME: 1539 PATIENT: DRE GARCIA UNIT #: [id number] ROOM/BED: : 00 AGE: 21 SEX: F ATTEND: Muriel De Los Santos MD ADM AUTHOR: Emory Conrad MD * ALL edits or amendments must be made on the electronic/computer document * Clinical Note Note: OB ED H P HPI: Patient is a 21 year old at 36w2d gestation that presents to the hospital today complaining of decreased movements since 8 AM. Tried drinking cold juice, laying on her sides but only had a couple of movements. Since she's been on the monitor for about 30 minutes, she has felt 2 movements. Has intermittent contractions but not regular or painful. Denies LOF, VB. PNC: [facility] with Dr. De Los Santos. Please see records for information. Obstetrical History: Past Medical History: Anemia - iron def, dx'ed during Past Surgical History: laparoscopic ovarian cystectomy Family History: HTN, DM Social History: no alcohol, tobacco or drugs Medications: PNV, calcium supplement, Iron supplement. Allergies: NKDA Vitals: stable Abdomen: - gravid, non-tender SVE - deferred EFM - Cat 1 strip [place] - quiet Assessment/Plan: Patient seen in Triage for decreased movements. Has reactive NST. BPP 07/07. Plan: discharge home with precautions. Patient advised to f/u in office at next scheduled appointment on Thursday. at 1633 RPT #:[id number] END OF REPORT [facility] 2021-08-13 15:40:00 [id number] [facility] [address] [place], [place] [address] PATIENT NAME: DRE GARCIA ADMIT DATE: 07/31/21 ACCOUNT NO: [id number] ROOM NO: [id number] AGE: 21 SEX: F ADMITTING PHYSICIAN: Muriel De Los Santos MD ATTENDING PHYSICIAN: Muriel De Los Santos MD CONSULTATION DATE: 07/30/2021 CONSULTING PHYSICIAN: Felice Sharma MD GENERAL SURGERY CONSULTATION LOCATION: The patient is being seen in the ER. CHIEF COMPLAINT: The patient is a 21-year-old and currently 17 weeks with her first , who comes in with a history 8 days of right lower quadrant pain, nausea and vomiting. HISTORY OF PRESENT ILLNESS: She was seen and evaluated by her POT SANDER this morning and was sent over to the ER for concern of appendicitis. The ER physicians have performed an evaluation and general surgery has been consulted to offer opinion. At the time of evaluation, the patient does complain of pain; however, she is awake, alert and in no acute distress. The initial read on the ultrasound, which was completed, was concern for appendicitis, which has now been addended to equivocal. PAST MEDICAL HISTORY: The patient has no significant past medical history. PAST SURGICAL HISTORY: She has never had any previous surgery. OBSTETRICAL AND GYNECOLOGICAL HISTORY: She does not have a history of similar pains in the past. Again, this is her first . REVIEW OF SYSTEMS: All systems are negative aside from the abdominal and GI complaints in the HPI. PHYSICAL EXAMINATION: VITAL SIGNS: The patient is afebrile. Her vital signs are stable. GENERAL: She is awake, alert and oriented. RESPIRATORY: She has no respiratory distress. HEART: Her heart rate is regular. ABDOMEN: Soft. There is subjective tenderness when I palpate in the right lower quadrant; however, there is no involuntary guarding or rebound. EXTREMITIES: Well perfused and warm. LABORATORY DATA: Review shows a normal white count. Electrolytes were unremarkable. As mentioned before, the ultrasound findings are now equivocal. IMPRESSION: This is a low likelihood of appendicitis. I would admit the PATIENT NAME: DRE GARCIA patient for observation. If clinically changes, we can consider getting an MRI. The patient from my standpoint can eat and be n.p.o. after midnight for an additional abdominal evaluation. Dictated By: Felice Sharma MD WT: CON:F.SONIA/STEVE/CARO Conf#: [id number]/DID#: [id number] Authenticated by Felice Sharma MD On 08/20/2021 04:16:54 PM at 0416 PATIENT NAME: DRE GARCIA [facility] 2021-08-01 13:03:00 [facility] ([facility] Discharge Summary REPORT#:[id number] REPORT STATUS: Signed DATE:08/01/21 TIME: 1303 PATIENT: DRE GARCIA UNIT #: [id number] ROOM/BED: [address] : 00 AGE: 21 SEX: F ATTEND: Muriel De Los Santos MD ADM AUTHOR: Catrina Simmons MD * ALL edits or amendments must be made on the electronic/computer document * PCP PCP Discharge to: home General Information Problem List/A P: 1. RLQ abdominal pain Free Text A P: 21yo G1 admitted at 18w0d with RLQ pain, rule out appendicitis. HD#2/EGA 18w1d 1. RLQ pain - Afebrile. WBC wnl. - Initial ultrasound with possible appendicitis, however re-evaluation by radiology wnl - MRI wnl - Dr. Sharma consulted, low suspicion for appendicitis; appreciate his recommendations - Pain improved today - Endorses good appetite, tolerated regular diet overnight 2. Possible UTI - 3+ leuks on UA, urine cx pending - Empirically started on Macrobid while awaiting cx given unclear etiology of pain 3. Previable SIUP - For daily doptones Dispo: Discharge home with pain medication and close follow up Date of admission: Observation Start Date: 07/31/21 Date of admission: 07/31/21 Discharge date: 08/01/21 Admission diagnosis: Acute abdominal pain Discharge diagnosis: Same Hospital course: Patient presented to the ED with acute abdominal pain. Labs and imaging including abdominal MRI were normal. She underwent serial abdominal exams which were benign. General Surgery consultation was obtained with low suspicion for a surgical etiology. As patient's pain improved, she was deemed stable for discharge with close follow up. Consultants: surgery Pt. condition on discharge: improved Med Rec PCP PCP: PCP: Muriel De Los Santos MD Med Rec Discharge meds: Start taking the following new medications: NITROFURANTOIN/NITROFURAN MAC (MACROBID) 100 MG CAP 100 MILLIGRAM ORAL EVERY 12 HOURS. Days = 10 Qty = 20 No Refills HYDROcodone/APAP (NORCO 5/325) 1 TAB TAB 1 TABLET ORAL EVERY 6 HOURS NEEDED. as needed for SEVERE PAIN (SCALE 7- 10) Qty = 20 No Refills Objective VS/I O Last Documented: Result Date Time Pulse Ox 100 08/01 0831 Pulse 86 08/01 0831 B/P Mean 72.0 08/01 0830 B/P 100/55 08/01 0830 Temp 98.5 08/01 0830 Resp 20 08/01 0830 O2 Delivery Room air 07/31 0219 PATIENT WEIGHT: Weight (lb): 115 Weight (oz): Weight (kg): 52.163 General appearance: alert, awake, oriented, no acute distress, pleasant, conversational, mental status normal, no respiratory distress Head/Eyes: atraumatic Respiratory: no distress GI: soft, no guarding, no rebound, no distention (tender to palpation RLQ) Extremities: moves all, no calf tenderness, no pedal edema Neuro/OPTICAL GLASS ETCHER: alert, oriented X 3, normal speech Discharge Instructions PCP PCP: PCP: Muriel De Los Santos MD )( Discharge to: Home/Self Care Discharge Instructions Additional Discharge Routines: Attending Follow-Up )( Diet: Regular )( Activity: No Strenuous Activity Prescriptions: e-prescribe Discharge management: greater than 30 mins Follow-up Appointments Attending Physician: Attending Physician: Muriel De Los Santos MD Attending physician follow up timeframe: In 5 days at 1307 [facility] #:[id number] END OF REPORT [facility] 2021-08-01 11:17:00 [facility] ([facility] Clinical Note REPORT#:[id number] REPORT STATUS: Signed DATE:08/01/21 TIME: 1117 PATIENT: DRE GARCIA UNIT #: [id number] ROOM/BED: [address] : 00 AGE: 21 SEX: F ATTEND: Muriel De Los Santos MD ADM AUTHOR: Felice Sharma MD * ALL edits or amendments must be made on the electronic/computer document * Clinical Note Note: Patient continues to have subjective pain in RLQ. Her clinical exam is unchanged. Her affect does not match her pain score af,vss abdomen:soft, complains of tenderness in RLQ with any contact non surgical abdomen impression: no physical findings on exam labs and imaging studies normal I do not have any source for her pain discuss with primary team at 1542 RPT #:[id number] END OF REPORT [facility] 2021-08-01 10:16:00 [facility] OB Antepartum Prog Note REPORT#:[id number] REPORT STATUS: Signed DATE:08/01/21 TIME: 1016 PATIENT: DRE GARCIA UNIT #: [id number] ROOM/BED: [address] : 00 AGE: 21 SEX: F ATTEND: Muriel De Los Santos MD ADM AUTHOR: Catrina Simmons MD * ALL edits or amendments must be made on the electronic/computer document * Subjective Subjective Admission EGA: Weeks: 17 Days: 6 Current EGA: Current EGA(wks): 18 Current EGA(days): 1 Patient reports: Patient reports: Yes: abdominal pain. No: vaginal bleeding, leaking fluid, headache, fever, chills, shortness of breath. Comments: Reports normal appetite, eating without difficuty. Does endorse nausea but controlled with Zofran. Reports pain still present, no improvement with Girard. Review of Systems Constitutional: Denies: chills, fever. Eyes: Denies: visual loss/blurred. Respiratory: Denies: non productive cough, productive cough (sputum), SOB. Cardiovascular: Denies: chest pain, palpitations. GI: Reports: abdominal pain, nausea. Denies: vomiting. : Denies: dysuria, vaginal bleeding. Neuro: Denies: headache. Objective Nursing Documentation Review Nursing data: The data set between the solid lines has been imported from nursing documentation. Any exceptions have been noted below under Provider comments. ROM date: ROM time: Labor onset date: Labor onset time: Provider comments on imported nursing data: [] VS: Last Documented: Result Date Time Pulse Ox 100 08/01 0831 Pulse 86 / 0831 B/P Mean 72.0 08/01 0830 B/P 100/55 08/01 0830 Temp 98.5 08/01 0830 Resp 20 08/01 0830 O2 Delivery Room air 07/31 0219 Vital Signs Date Temp Pulse Resp B/P B/P Mean Pulse Ox FiO2 07/31-08/01 98.5 77-86 20 100-113/55-56 70-78.0 100 PATIENT WEIGHT: Weight (lb): 115 Weight (oz): Weight (kg): 52.163 Lungs: unlabored breathing Neuro: Exam: alert, oriented x3, normal speech Abdomen: gravid, soft, no guarding, no rebound tenderness, RLQ tender to palpation Uterus: non-tender Lower extremities: Edema: trace Diagnosis, Assessment Plan Diagnosis, Assessment Plan Problem List/A P: 1. RLQ abdominal pain Free text A P: 21yo G1 admitted at 18w0d with RLQ pain, rule out appendicitis. HD#2/EGA 18w1d 1. RLQ pain - Afebrile. WBC wnl. - Initial ultrasound with possible appendicitis, however re-evaluation by radiology wnl - MRI wnl - Dr. Sharma consulted, low suspicion for appendicitis; appreciate his recommendations - Pt transitioned to po pain meds yesterday, states not helping her pain, endorses currently 06/08. Pain apepars out of proportion to exam. One time morphine ordered, however discussed with pt that will not be standing order. - Endorses good appetite, tolerated regular diet overnight 2. Possible UTI - 3+ leuks on UA, urine cx pending - Empirically started on Macrobid while awaiting cx given unclear etiology of pain 3. Previable SIUP - For daily doptones Dispo: Will monitor pain today, possible discharge with pain medications and close follow up given reassuring exam, imaging and lab findings Assessment: RLQ pain Plan: continue current managmnt, possible pm discharge at 1301 RPT #:[id number] END OF REPORT [facility] 2021-08-01 10:16:[address] [facility] OB Antepartum Prog Note REPORT#:[id number] REPORT STATUS: Signed DATE:08/01/21 TIME: 1016 PATIENT: DRE GARCIA UNIT #: [id number] ROOM[facility]BED: [facility]- : 00 AGE: 21 SEX: F ATTEND: Muriel De Los Santos MD ADM AUTHOR: Catrina Simmons MD * ALL edits or amendments must be made on the electronic/computer document * See Addendum Subjective Subjective Admission EGA: Weeks: 17 Days: 6 Current EGA: Current EGA(wks): 18 Current EGA(days): 1 Patient reports: Patient reports: Yes: abdominal pain. No: vaginal bleeding, leaking fluid, headache, fever, chills, shortness of breath. Comments: Reports normal appetite, eating without difficuty. Does endorse nausea but controlled with Zofran. Reports pain still present, no improvement with Girard. Review of Systems Constitutional: Denies: chills, fever. Eyes: Denies: visual loss/blurred. Respiratory: Denies: non productive cough, productive cough (sputum), SOB. Cardiovascular: Denies: chest pain, palpitations. GI: Reports: abdominal pain, nausea. Denies: vomiting. : Denies: dysuria, vaginal bleeding. Neuro: Denies: headache. Objective Nursing Documentation Review Nursing data: The data set between the solid lines has been imported from nursing documentation. Any exceptions have been noted below under Provider comments. ROM date: ROM time: Labor onset date: Labor onset time: Provider comments on imported nursing data: [] VS: Last Documented: Result Date Time Pulse Ox 100 / 0831 Pulse 86 / 0831 B/P Mean 72.0 08/01 0830 B/P 100/55 08/01 0830 Temp 98.5 08/01 0830 Resp 20 08/01 0830 O2 Delivery Room air 07/31 0219 Vital Signs Date Temp Pulse Resp B/P B/P Mean Pulse Ox FiO2 07/31-08/01 98.5 77-86 20 100-113/55-56 70-78.0 100 PATIENT WEIGHT: Weight (lb): 115 Weight (oz): Weight (kg): 52.163 Lungs: unlabored breathing Neuro: Exam: alert, oriented x3, normal speech Abdomen: gravid, soft, no guarding, no rebound tenderness, RLQ tender to palpation Uterus: non-tender Lower extremities: Edema: trace Diagnosis, Assessment Plan Diagnosis, Assessment Plan Problem List/A P: 1. RLQ abdominal pain Free text A P: 21yo G1 admitted at 18w0d with RLQ pain, rule out appendicitis. HD#2/EGA 18w1d 1. RLQ pain - Afebrile. WBC wnl. - Initial ultrasound with possible appendicitis, however re-evaluation by radiology wnl - MRI wnl - Dr. Sharma consulted, low suspicion for appendicitis; appreciate his recommendations - Pt transitioned to po pain meds yesterday, states not helping her pain, endorses currently 06/08. Pain apepars out of proportion to exam. One time morphine ordered, however discussed with pt that will not be standing order. - Endorses good appetite, tolerated regular diet overnight 2. Possible UTI - 3+ leuks on UA, urine cx pending - Empirically started on Macrobid while awaiting cx given unclear etiology of pain 3. Previable SIUP - For daily doptones Dispo: Will monitor pain today, possible discharge with pain medications and close follow up given reassuring exam, imaging and lab findings Assessment: RLQ pain Plan: continue current managmnt, possible pm discharge at 1301 Addendum 1: 08/01/21 1301 by Catrina Simmons MD Patient re-assessed at bedside. States feeling better. Had discussed possible diagnostic laparoscopy with Dr. Sharma but does not desire surgery since suspicion for appendicitis or other surgical condition is low. Therefore will proceed with discharge and close follow up in the office. at 1302 RPT #:[id number] END OF REPORT [facility] 2021-07-31 08:57:[address] [facility] OB Antepartum Prog Note REPORT#:[id number] REPORT STATUS: Signed DATE:07/31/21 TIME: 856 PATIENT: DRE GARCIA UNIT #: [id number] ROOM/BED: [address] : 00 AGE: 21 SEX: F ATTEND: Muriel De Los Santos MD ADM AUTHOR: Emory Conrad MD * ALL edits or amendments must be made on the electronic/computer document * Subjective Subjective Admission EGA: Weeks: 17 Days: 6 Patient reports: Comments: Still having RLQ pain. Pain is constant and sharp and throbbing in sensation. Movements, coughing/sneezing make pain worse. Can't bend her right leg without causing more pain. Reports normal BM's and no urinary sxs except for urinary frequency. Has increased appetite this morning. Has been getting zofran overnight. Denies nausea. Denies contractions,cramping, vaginal bleeding, leakage of fluid. Objective Nursing Documentation Review Nursing data: The data set between the solid lines has been imported from nursing documentation. Any exceptions have been noted below under Provider comments. ROM date: ROM time: Labor onset date: Labor onset time: Provider comments on imported nursing data: [] VS: Last Documented: Result Date Time B/P Mean 68.0 07/31 752 B/P 92/55 09/01 0752 Pulse 71 07/31 0752 Temp 98.2 07/31 0247 Resp 16 07/31 0247 Pulse Ox 100 07/31 0219 O2 Delivery Room air 07/31 0219 Vital Signs Date Temp Pulse Resp B/P B/P Mean Pulse Ox FiO2 07/30-07/31 98.2-98.5 65-88 16-18 92-110/55-76 68.0-87 100 PATIENT WEIGHT: Weight (lb): 115 Weight (oz): Weight (kg): 52.163 Medications: Active Meds + DC'd Last 24 Hrs Dextrose/Lactated Ringer's 1,000 ML ASDIR IV Morphine Sulfate 4 MG Q4H PRN PRN IV Ondansetron HCl 4 MG Q6H PRN PRN IV Sodium Chloride 1,000 ML X1ED IV (DC) Morphine Sulfate 4 MG X1ED STA IV (DC) Ondansetron HCl 4 MG ONCE ONE IV (DC) Hydrocodone Bitart/Acetaminophen 1 TAB X1ED STA PO (CAN) Sodium Chloride 1,000 ML X1ED STA IV (DC) Cardiac: regular rate and rhythm Neuro: Exam: alert, oriented x3, normal speech Abdomen: gravid, soft, no guarding, no rebound tenderness, RLQ tender to palpation Uterus: non-tender Lower extremities: Edema: trace Findings/data: Laboratory Tests: 07/30 07/30 07/30 2140 1414 1359 Chemistry Sodium (135 - 145 mEq/L) 139 Potassium (3.5 - 5.0 mEq/L) 4.2 Chloride (100 - 115 mEq/L) 106 Carbon Dioxide (22 - 31 mEq/L) 25 Anion Gap (10 - 20) 12.30 BUN (7 - 18 mg/dL) 6 L Creatinine (0.5 - 1.0 mg/dL) 0.5 Glomerular Filtr Rate (>60 ml/min) 156 Glucose (65 - 110 mg/dL) 84 Calcium (8.4 - 10.2 mg/dL) 8.8 Total Bilirubin (0.2 - 1.0 mg/dL) 0.2 AST (15 - 37 units/L) 12 L ALT (12 - 78 units/L) 16 Total Alk Phosphatase (46 - 116 units/L) 64 Total Protein (6.3 - 8.2 gm/dL) 6.5 Albumin (3.4 - 4.8 gm/dL) 3.2 L Amylase (30 - 110 units/L) 47 Hematology WBC (6.5 - 12.3 K/mm3) 9.8 RBC (3.51 - 4.69 M/mm3) 3.62 Hgb (10.1 - 13.8 g/dL) 10.9 Hct (32.5 - 41.8 %) 31.9 L MCV (84.6 - 96.6 fL) 88.1 MCH (27.3 - 33.9 pg) 30.1 MCHC (32.0 - 34.2 gm/dL) 34.2 RDW (12.2 - 16.3 %) 13.2 Plt Count (134 - 363 K/mm3) 288 MPV (9.2 - 12.7 fL) 8.9 L Neut % (Auto) (57.9 - 77.3 %) 74.4 Lymph % (Auto) (14.5 - 29.7 %) 19.7 [place] % (Auto) (3.6 - 10.2 %) 4.8 Eos % (Auto) (0.0 - 3.0 %) 0.5 Baso % (Auto) (0.1 - 0.9 %) 0.1 Neut # (Auto) (K/mm3) 7.3 Lymph # (Auto) (K/mm3) 1.9 [place] # (Auto) (K/mm3) 0.5 Eos # (Auto) (K/mm3) 0.05 Baso # (Auto) (K/mm3) 0.0 Serology SARS-CoV-2 Ag (Rapid) (NEGATIVE) NEGATIVE Urines Urine Color (YELLOW) STRAW Urine Appearance (CLEAR) CLEAR Urine pH (5 - 9) 7.0 Ur Specific [place] (1.001 - 1.035) 1.002 Urine Protein (NEG) NEGATIVE Urine Glucose (UA) (NEG) NEGATIVE Urine Ketones (NEG) NEGATIVE Urine Blood (NEG) NEG Urine Nitrite (NEG) NEG Urine Bilirubin (NEG) NEGATIVE Urine Urobilinogen (NEG mg/dL) NEGATIVE Ur Leukocyte Esterase (NEG) 3+ H Urine RBC (NONE SEEN #/hpf) 3-5 H Urine WBC (NONE SEEN #/hpf) 6-10 H Ur Epithelial Cells (RARE - FEW #/HPF) FEW Urine Bacteria (RARE - FEW /HPF) RARE Microbiology: Date/Time Procedure - Status Source Growth 07/30 1440 Urine Culture - RECD URINE Recent Impressions: ULTRASOUND - US ABDOMEN LTD 07/30 1555 Report Impression - Status: SIGNED Entered: 07/30/2021 1705 IMPRESSION: Findings consistent with acute appendicitis. Impression By: [email or web address] - Tucker Ambrosio MD ULTRASOUND - US LTD 07/30 1555 Report Impression - Status: SIGNED Entered: 07/30/2021 1716 IMPRESSION: 1. Single, viable intrauterine gestation in breech presentation with estimated heart rate approximately 148 bpm. 2. Posterior placenta, grade 1, without previa or retroplacental hemorrhage. 3. The cervix is closed measuring 4.4 cm in length. 4. Normal-sized maternal right ovary without focal lesion. Nonvisualized left ovary. 5. No free fluid. Impression By: [email or web address] - Moses Mayorga MD MAGNETIC RESONANCE IMAGING - MRI ABDOMEN W/O CONT 07/30 182 Report Impression - Status: SIGNED Entered: 07/30/20212010 IMPRESSION: No acute finding. Impression By: [email or web address] - Anant Qiu MD Diagnosis, Assessment Plan Diagnosis, Assessment Plan Problem List/A P: 1. RLQ abdominal pain Free Text A P: 21yo G1 at 18.0wga presents with RLQ pain, rule out appendicitis. - r/o appendicitis - initial ultrasound suggest of appendicitis changes, re- evaluation by radiology less definitive for appendicitis changes. MRI ordered which appeared normal. Afebrile. WBC wnl. Admitted overnight for serial exams and pain control. Dr. Sharma consulted, transitioned to regular diet this morning ; appreciate his recommendations. - suspected UTI: pt wiht 3+ leuks on UA, urine cx pending. Will empirically start on macrobid while awaiting cx given unclear etiology of pain. - OB, for daily doptones at 1029 RPT #:[id number] END OF REPORT [facility] 2021-07-31 08:57:00 [facility] ([facility] OB Antepartum Prog Note REPORT#:[id number] REPORT STATUS: Signed DATE:07/31/21 TIME: 0857 PATIENT: DRE GARCIA UNIT #: [id number] ROOM/BED: [address] : 00 AGE: 21 SEX: F ATTEND: Muriel De Los Santos MD ADM AUTHOR: Emory Conrad MD * ALL edits or amendments must be made on the electronic/computer document * See Addendum Subjective Subjective Admission EGA: Weeks: 17 Days: 6 Patient reports: Comments: Still having RLQ pain. Pain is constant and sharp and throbbing in sensation. Movements, coughing/sneezing make pain worse. Can't bend her right leg without causing more pain. Reports normal BM's and no urinary sxs except for urinary frequency. Has increased appetite this morning. Has been getting zofran overnight. Denies nausea. Denies contractions,cramping, vaginal bleeding, leakage of fluid. Objective Nursing Documentation Review Nursing data: The data set between the solid lines has been imported from nursing documentation. Any exceptions have been noted below under Provider comments. ROM date: ROM time: Labor onset date: Labor onset time: Provider comments on imported nursing data: [] VS: Last Documented: Result Date Time B/P Mean 68.0 07/31 752 B/P 92/55 09/01 0752 Pulse 71 07/31 0752 Temp 98.2 07/31 0247 Resp 16 07/31 0247 Pulse Ox 100 07/31 0219 O2 Delivery Room air 07/31 0219 Vital Signs Date Temp Pulse Resp B/P B/P Mean Pulse Ox FiO2 07/30-07/31 98.2-98.5 65-88 16-18 92-110/55-76 68.0-87 100 PATIENT WEIGHT: Weight (lb): 115 Weight (oz): Weight (kg): 52.163 Medications: Active Meds + DC'd Last 24 Hrs Dextrose/Lactated Ringer's 1,000 ML ASDIR IV Morphine Sulfate 4 MG Q4H PRN PRN IV Ondansetron HCl 4 MG Q6H PRN PRN IV Sodium Chloride 1,000 ML X1ED IV (DC) Morphine Sulfate 4 MG X1ED STA IV (DC) Ondansetron HCl 4 MG ONCE ONE IV (DC) Hydrocodone Bitart/Acetaminophen 1 TAB X1ED STA PO (CAN) Sodium Chloride 1,000 ML X1ED STA IV (DC) Cardiac: regular rate and rhythm Neuro: Exam: alert, oriented x3, normal speech Abdomen: gravid, soft, no guarding, no rebound tenderness, RLQ tender to palpation Uterus: non-tender Lower extremities: Edema: trace Findings/data: Laboratory Tests: 07/30 07/30 07/30 2140 1414 1359 Chemistry Sodium (135 - 145 mEq/L) 139 Potassium (3.5 - 5.0 mEq/L) 4.2 Chloride (100 - 115 mEq/L) 106 Carbon Dioxide (22 - 31 mEq/L) 25 Anion Gap (10 - 20) 12.30 BUN (7 - 18 mg/dL) 6 L Creatinine (0.5 - 1.0 mg/dL) 0.5 Glomerular Filtr Rate (>60 ml/min) 156 Glucose (65 - 110 mg/dL) 84 Calcium (8.4 - 10.2 mg/dL) 8.8 Total Bilirubin (0.2 - 1.0 mg/dL) 0.2 AST (15 - 37 units/L) 12 L ALT (12 - 78 units/L) 16 Total Alk Phosphatase (46 - 116 units/L) 64 Total Protein (6.3 - 8.2 gm/dL) 6.5 Albumin (3.4 - 4.8 gm/dL) 3.2 L Amylase (30 - 110 units/L) 47 Hematology WBC (6.5 - 12.3 K/mm3) 9.8 RBC (3.51 - 4.69 M/mm3) 3.62 Hgb (10.1 - 13.8 g/dL) 10.9 Hct (32.5 - 41.8 %) 31.9 L MCV (84.6 - 96.6 fL) 88.1 MCH (27.3 - 33.9 pg) 30.1 MCHC (32.0 - 34.2 gm/dL) 34.2 RDW (12.2 - 16.3 %) 13.2 Plt Count (134 - 363 K/mm3) 288 MPV (9.2 - 12.7 fL) 8.9 L Neut % (Auto) (57.9 - 77.3 %) 74.4 Lymph % (Auto) (14.5 - 29.7 %) 19.7 [place] % (Auto) (3.6 - 10.2 %) 4.8 Eos % (Auto) (0.0 - 3.0 %) 0.5 Baso % (Auto) (0.1 - 0.9 %) 0.1 Neut # (Auto) (K/mm3) 7.3 Lymph # (Auto) (K/mm3) 1.9 [place] # (Auto) (K/mm3) 0.5 Eos # (Auto) (K/mm3) 0.05 Baso # (Auto) (K/mm3) 0.0 Serology SARS-CoV-2 Ag (Rapid) (NEGATIVE) NEGATIVE Urines Urine Color (YELLOW) STRAW Urine Appearance (CLEAR) CLEAR Urine pH (5 - 9) 7.0 Ur Specific [place] (1.001 - 1.035) 1.002 Urine Protein (NEG) NEGATIVE Urine Glucose (UA) (NEG) NEGATIVE Urine Ketones (NEG) NEGATIVE Urine Blood (NEG) NEG Urine Nitrite (NEG) NEG Urine Bilirubin (NEG) NEGATIVE Urine Urobilinogen (NEG mg/dL) NEGATIVE Ur Leukocyte Esterase (NEG) 3+ H Urine RBC (NONE SEEN #/hpf) 3-5 H Urine WBC (NONE SEEN #/hpf) 6-10 H Ur Epithelial Cells (RARE - FEW #/HPF) FEW Urine Bacteria (RARE - FEW /HPF) RARE Microbiology: Date/Time Procedure - Status Source Growth 07/30 1440 Urine Culture - RECD URINE Recent Impressions: ULTRASOUND - US ABDOMEN LTD 07/30 155 Report Impression - Status: SIGNED Entered: 07/30/2021 1705 IMPRESSION: Findings consistent with acute appendicitis. Impression By: [email or web address] - Tucker Ambrosio MD ULTRASOUND - US LTD 07/30 1555 Report Impression - Status: SIGNED Entered: 07/30/2021 1716 IMPRESSION: 1. Single, viable intrauterine gestation in breech presentation with estimated heart rate approximately 148 bpm. 2. Posterior placenta, grade 1, without previa or retroplacental hemorrhage. 3. The cervix is closed measuring 4.4 cm in length. 4. Normal-sized maternal right ovary without focal lesion. Nonvisualized left ovary. 5. No free fluid. Impression By: [email or web address] - Moses Mayorga MD MAGNETIC RESONANCE IMAGING - MRI ABDOMEN W/O CONT 07/30 1828 Report Impression - Status: SIGNED Entered: 07/30/20212010 IMPRESSION: No acute finding. Impression By: [email or web address] - Anant Qiu MD Diagnosis, Assessment Plan Diagnosis, Assessment Plan Problem List/A P: 1. RLQ abdominal pain Free Text A P: 21yo G1 at 18.0wga presents with RLQ pain, rule out appendicitis. - r/o appendicitis - initial ultrasound suggest of appendicitis changes, re- evaluation by radiology less definitive for appendicitis changes. MRI ordered which appeared normal. Afebrile. WBC wnl. Admitted overnight for serial exams and pain control. Dr. Sharma consulted, transitioned to regular diet this morning ; appreciate his recommendations. - suspected UTI: pt wiht 3+ leuks on UA, urine cx pending. Will empirically start on macrobid while awaiting cx given unclear etiology of pain. - OB, for daily doptones at 1029 Addendum 1: 07/31/21 1746 by Emory Conrad MD Pt reports still having pain that is constant but she is able to lay comfortably in bed. Her pain gets worse with movements. Has asked for morphine every 4 hrs today. RN reports that pt rated pain as 4-5 out of 10 when asking for morphine. Pt is able to walk to the bathroom but does feel more pain. Pt is tolerating PO but has been getting IV zofran. AFVSS Appears in no acute distress. Pain is localized in the RLQ approximately 5 cm lateral to suprapubic area. No rebound or guarding. No CVAT bilaterally Will transition to oral pain meds tylenol for mild pain and Girard for severe pain, SL zofran prn nausea, liquid pepcid daily. Will stop IVF and saline lock IV. Anticipate dc home tomorrow pending pain and nausea control. at 1804 RPT #:[id number] END OF REPORT [facility] 2021-07-31 07:57:00 [facility] Clinical Note REPORT#:[id number] REPORT STATUS: Signed DATE:07/31/21 TIME: 756 PATIENT: RDE GARCIA UNIT #: [id number] ROOM/BED: [address] : 00 AGE: 21 SEX: F ATTEND: Muriel De Los Santos MD ADM AUTHOR: Felice Sharma MD * ALL edits or amendments must be made on the electronic/computer document * Clinical Note Note: MRI no findings still c/o pain hungry this am AF,VSS exam: abdomen is soft, no gaurding but she is tender to palpation in RLQ impression:low suspicion for acute appendicitis in or any other infectious process rec: regular diet; non surgical abdomen at 0758 RPT #:[id number] END OF REPORT [facility] 2021-07-31 07:25:00 [facility] ENVIRONMENTAL SERVICES ASSOCIATE Admission H P REPORT#:[id number] REPORT STATUS: Signed DATE:07/31/21 TIME: 724 PATIENT: DRE GARCIA UNIT #: [id number] ROOM/BED: [address] : 00 AGE: 21 SEX: F ATTEND: Muriel De Los Santos MD ADM AUTHOR: Linden Edgar MD * ALL edits or amendments must be made on the electronic/computer document * History of Present Illness Chief complaint: pelvic pain Free Text HPI Notes Free Text HPI Notes: Patient presented to office today at 17.6wga complaining of now a week of ongoing abdominal/pelvic pain. Pain initially had been generalized, but yesterday worsening to RLQ. Rated pain a 6/10, 8/10 with pressure on abdomen. Endorses nausea. No fever. Still able to eat, but appetitie diminished. Denies cramping/contractions/bleeding. History Past Medical History Additional medical history: migraine headaches, depression/anxiety Past Surgical History Additional surgical history: Right ovarian cystectomy drainage. 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 Past OB history: : 1 Comments: current JOSEPH 01/01/22 Social History Smoking status: Smoking status for patients 13 years old or older: Never Smoker Medication/Allergy-Vaccine Hx Allergies: Uncoded Allergies: PENICILLIN (RASH, SWELLING 07/31/21) Physical Exam VS/I O Vital Signs: Date Time Temp Pulse Resp B/P B/P Pulse O2 O2 Flow FiO2 Mean Ox Delivery Rate 07/31 0247 98.2 65 16 103/58 07/31 0219 98.3 70 16 99/56 70 100 Room air 07/30 2250 98.2 70 18 97/57 70 100 Room air 07/30 1950 72 18 102/56 71 100 Room air 07/30 1350 98.5 88 16 110/76 87 100 Room air 24 hour I O ending at 0700: 07/31 0700 07/30 1900 Intake Total 1999. Output Total Balance 1999. Intake, IV 1999. Patient 52.163 kg 52.273 kg Weight Weight Standing scale Measurement Method PATIENT WEIGHT: Weight (lb): 115 Weight (oz): Weight (kg): 52.163 General appearance: alert, awake, oriented, pleasant, appears to be in some pain during discussion Head/Eyes: atraumatic Respiratory: aerating well Abdomen/GI: soft, no guarding, no rebound, no distention, significant ttp in RLQ Genitourinary: deferred Extremities: moves all Neuro/OPTICAL GLASS ETCHER: alert, oriented X 3 Skin: no gross abnormalities Results Findings/Data: Laboratory Tests: 07/30 07/30 07/30 2140 1414 1359 Chemistry Sodium (135 - 145 mEq/L) 139 Potassium (3.5 - 5.0 mEq/L) 4.2 Chloride (100 - 115 mEq/L) 106 Carbon Dioxide (22 - 31 mEq/L) 25 Anion Gap (10 - 20) 12.30 BUN (7 - 18 mg/dL) 6 L Creatinine (0.5 - 1.0 mg/dL) 0.5 Glomerular Filtr Rate (>60 ml/min) 156 Glucose (65 - 110 mg/dL) 84 Calcium (8.4 - 10.2 mg/dL) 8.8 Total Bilirubin (0.2 - 1.0 mg/dL) 0.2 AST (15 - 37 units/L) 12 L ALT (12 - 78 units/L) 16 Total Alk Phosphatase (46 - 116 units/L) 64 Total Protein (6.3 - 8.2 gm/dL) 6.5 Albumin (3.4 - 4.8 gm/dL) 3.2 L Amylase (30 - 110 units/L) 47 Hematology WBC (6.5 - 12.3 K/mm3) 9.8 RBC (3.51 - 4.69 M/mm3) 3.62 Hgb (10.1 - 13.8 g/dL) 10.9 Hct (32.5 - 41.8 %) 31.9 L MCV (84.6 - 96.6 fL) 88.1 MCH (27.3 - 33.9 pg) 30.1 MCHC (32.0 - 34.2 gm/dL) 34.2 RDW (12.2 - 16.3 %) 13.2 Plt Count (134 - 363 K/mm3) 288 MPV (9.2 - 12.7 fL) 8.9 L Neut % (Auto) (57.9 - 77.3 %) 74.4 Lymph % (Auto) (14.5 - 29.7 %) 19.7 [place] % (Auto) (3.6 - 10.2 %) 4.8 Eos % (Auto) (0.0 - 3.0 %) 0.5 Baso % (Auto) (0.1 - 0.9 %) 0.1 Neut # (Auto) (K/mm3) 7.3 Lymph # (Auto) (K/mm3) 1.9 [place] # (Auto) (K/mm3) 0.5 Eos # (Auto) (K/mm3) 0.05 Baso # (Auto) (K/mm3) 0.0 Serology SARS-CoV-2 Ag (Rapid) (NEGATIVE) NEGATIVE Urines Urine Color (YELLOW) STRAW Urine Appearance (CLEAR) CLEAR Urine pH (5 - 9) 7.0 Ur Specific [place] (1.001 - 1.035) 1.002 Urine Protein (NEG) NEGATIVE Urine Glucose (UA) (NEG) NEGATIVE Urine Ketones (NEG) NEGATIVE Urine Blood (NEG) NEG Urine Nitrite (NEG) NEG Urine Bilirubin (NEG) NEGATIVE Urine Urobilinogen (NEG mg/dL) NEGATIVE Ur Leukocyte Esterase (NEG) 3+ H Urine RBC (NONE SEEN #/hpf) 3-5 H Urine WBC (NONE SEEN #/hpf) 6-10 H Ur Epithelial Cells (RARE - FEW #/HPF) FEW Urine Bacteria (RARE - FEW /HPF) RARE Radiology data: Recent Impressions: ULTRASOUND - US ABDOMEN LTD 07/30 1555 Report Impression - Status: SIGNED Entered: 07/30/20211704 IMPRESSION: Findings consistent with acute appendicitis. Impression By: [email or web address] Jill Ambrosio MD ULTRASOUND - US LTD 07/30 1555 Report Impression - Status: SIGNED Entered: 07/30/20211715 IMPRESSION: 1. Single, viable intrauterine gestation in breech presentation with estimated heart rate approximately 148 bpm. 2. Posterior placenta, grade 1, without previa or retroplacental hemorrhage. 3. The cervix is closed measuring 4.4 cm in length. 4. Normal-sized maternal right ovary without focal lesion. Nonvisualized left ovary. 5. No free fluid. Impression By: [email or web address] - Moses Mayorga MD MAGNETIC RESONANCE IMAGING - MRI ABDOMEN W/O CONT 07/30 1828 Report Impression - Status: SIGNED Entered: 07/30/20212010 IMPRESSION: No acute finding. Impression By: [email or web address] - Anant Qiu MD Diagnosis, Assessment Plan Problem List/A P: 1. RLQ abdominal pain Free Text DxA P Notes Free Text DxA P Notes: 21yo at 18.0wga presents with RLQ pain, rule out appendicitis. - r/o appendicitis - initial ultrasound suggest of appendicitis changes, re- evaluation by radiology less definitive for appendicitis changes. MRI ordered which appeared normal. Afebrile. WBC wnl. Admitted overnight for serial exams and pain control. Dr. Sharma consulted, appreciate his recommendations, to reassess this morning. Morphine ordered prn pain. Kept npo overnight - OB, for daily doptones at 0740 RPT #:[id number] END OF REPORT [facility] 2021-07-30 14:10:00 [facility] ([facility]) EMERGENCY PROVIDER REPORT REPORT#:[id number] REPORT STATUS: Signed DATE:07/30/21 TIME: 1410 PATIENT: DRE GARCIA UNIT #: [id number] ROOM/BED: AGE: 21 SEX: F PCP PHYS: Muriel De Los Santos MD SERVICE AUTHOR: Parth Knowles MD * ALL edits or amendments must be made on the electronic/computer document * HPI-Abd Pain F Under 40 General Initial Greet Date/Time 07/30/21 1331 Presentation Chief Complaint Pelvic pain, , 1st trimester Sudden in Onset? No Free Text HPI Notes Free Text HPI Notes Patient is about 17 weeks she comes in with history of 8 days of RLQ, nausea and vomiting, patient was seen by her OB?ENVIRONMENTAL SERVICES ASSOCIATE this morning who sent the patient to be evaluated to r/o appendicitis Risk-Abd Pain F Under 40 )( Ectopic Risk factors reviewed Review of Systems ROS Statements All systems rev neg except as marked. Basic Review of Systems Basic ROS EYES: No redness, ENT: No sore throat, HEM: No bleeding/bruising, SKIN : No rash, NEURO: No change MS, NEURO: No focal deficit, PSYCH: NL thought content Focused Review of Systems Constitutional Denies: Recent wt loss. Respiratory Denies: Pleuritic pain. Cardiovascular Denies: Orthopnea. GI Reports: Abdominal pain, Nausea, Vomiting. Female Denies: Pelvic pain, . Musculoskeletal Denies: Back pain, Extremity pain, Joint pain. Past Medical History - Adult Stated Complaint 17 WKS,RIGHT SIDE LOWER QUADRANT PAIN Allergies Uncoded Allergies: PENICILLIN (05/21/09) Home Medications Reported Medications No Known Home Medications Smoking status: Smoking status for patients 13 years old or older: Never Smoker Physical Exam Vital Signs Vital Signs First Documented: Result Date Time Pulse Ox 100 07/30 1350 B/P 110/76 07/30 1350 B/P Mean 87 07/30 1350 O2 Delivery Room air 07/30 1350 Temp 36.9 07/30 1350 Pulse 88 07/30 1350 Resp 16 07/30 1350 Last Documented: Result Date Time Pulse Ox 100 07/30 1350 B/P 110/76 07/30 1350 B/P Mean 87 07/30 1350 O2 Delivery Room air 07/30 1350 Temp 36.9 07/30 1350 Pulse 88 07/30 1350 Resp 16 07/30 1350 Review of Vital Signs Reviewed Basic Physical Exam Basic PE HEAD: Atraumatic/NC, EYES: PERRL, conj clear, ENT: Membranes moist, NECK: Supple, EXT: No gross abnormality, SKIN: No rashes, warm/dry, NEURO: alert oriented, NEURO: gross movement NL, PSYCH: NL thought content Focused PE General/Const General/Const Awake, Alert Resp/Chest Respiratory/Chest Atraumatic, Breath sounds NL, Breath sounds = bilat Cardiovascular Cardiovascular Regular rhythm, Heart sounds NL Abdomen/GI Abdomen/GI Non-tender, McBurney's non-tender, No guarding MS Back Back Inspection NL, Full range of motion, Painless range of motion Skin Skin Warm, Dry Interpretation Diagnostics Lab Results Interpretation Results Laboratory Tests 07/30/21 1414: [Embedded Image Not Available] Laboratory Tests: 07/30 07/30 1414 1359 Chemistry Sodium (135 - 145 mEq/L) 139 Potassium (3.5 - 5.0 mEq/L) 4.2 Chloride (100 - 115 mEq/L) 106 Carbon Dioxide (22 - 31 mEq/L) 25 Anion Gap (10 - 20) 12.30 BUN (7 - 18 mg/dL) 6 L Creatinine (0.5 - 1.0 mg/dL) 0.5 Glomerular Filtr Rate (>60 ml/min) 156 Glucose (65 - 110 mg/dL) 84 Calcium (8.4 - 10.2 mg/dL) 8.8 Total Bilirubin (0.2 - 1.0 mg/dL) 0.2 AST (15 - 37 units/L) 12 L ALT (12 - 78 units/L) 16 Total Alk Phosphatase (46 - 116 units/L) 64 Total Protein (6.3 - 8.2 gm/dL) 6.5 Albumin (3.4 - 4.8 gm/dL) 3.2 L Amylase (30 - 110 units/L) 47 Hematology WBC (6.5 - 12.3 K/mm3) 9.8 RBC (3.51 - 4.69 M/mm3) 3.62 Hgb (10.1 - 13.8 g/dL) 10.9 Hct (32.5 - 41.8 %) 31.9 L MCV (84.6 - 96.6 fL) 88.1 MCH (27.3 - 33.9 pg) 30.1 MCHC (32.0 - 34.2 gm/dL) 34.2 RDW (12.2 - 16.3 %) 13.2 Plt Count (134 - 363 K/mm3) 288 MPV (9.2 - 12.7 fL) 8.9 L Neut % (Auto) (57.9 - 77.3 %) 74.4 Lymph % (Auto) (14.5 - 29.7 %) 19.7 [place] % (Auto) (3.6 - 10.2 %) 4.8 Eos % (Auto) (0.0 - 3.0 %) 0.5 Baso % (Auto) (0.1 - 0.9 %) 0.1 Neut # (Auto) (K/mm3) 7.3 Lymph # (Auto) (K/mm3) 1.9 [place] # (Auto) (K/mm3) 0.5 Eos # (Auto) (K/mm3) 0.05 Baso # (Auto) (K/mm3) 0.0 Urines Urine Color (YELLOW) STRAW Urine Appearance (CLEAR) CLEAR Urine pH (5 - 9) 7.0 Ur Specific [place] (1.001 - 1.035) 1.002 Urine Protein (NEG) NEGATIVE Urine Glucose (UA) (NEG) NEGATIVE Urine Ketones (NEG) NEGATIVE Urine Blood (NEG) NEG Urine Nitrite (NEG) NEG Urine Bilirubin (NEG) NEGATIVE Urine Urobilinogen (NEG mg/dL) NEGATIVE Ur Leukocyte Esterase (NEG) 3+ H Urine RBC (NONE SEEN #/hpf) 3-5 H Urine WBC (NONE SEEN #/hpf) 6-10 H Ur Epithelial Cells (RARE - FEW #/HPF) FEW Urine Bacteria (RARE - FEW /HPF) RARE Microbiology: Date/Time Procedure - Status Source Growth 07/30 1440 Urine Culture - RECD URINE Recent Impressions: ULTRASOUND - US ABDOMEN LTD 07/30 1555 Report Impression - Status: SIGNED Entered: 07/30/2021 1705 IMPRESSION: Findings consistent with acute appendicitis. Impression By: Scott - Tucker Ambrosio MD ULTRASOUND - US LTD 07/30 1555 Report Impression - Status: SIGNED Entered: 07/30/2021 1716 IMPRESSION: 1. Single, viable intrauterine gestation in breech presentation with estimated heart rate approximately 148 bpm. 2. Posterior placenta, grade 1, without previa or retroplacental hemorrhage. 3. The cervix is closed measuring 4.4 cm in length. 4. Normal-sized maternal right ovary without focal lesion. Nonvisualized left ovary. 5. No free fluid. Impression By: [email or web address] - Moses Mayorga MD Lab Imaging Statement Laboratory radiographic studies reviewed and considered in the medical decision-making. Re-Evaluation MDM )( Re-Evaluation/Progress #1 )( Re-Eval Status Improved ED Course Medication(s) Ordered Medication(s) Ordered: Central Nervous System Agents Sig/Maggie Start time Last Medication Dose Route Stop Time Status Admin Morphine Sulfate 4 MG X1ED STA 07/30 1421 DC 07/30 IV 07/30 1422 1429 Hydrocodone Bitart/ 1 TAB X1ED STA 07/30 1413 CAN Acetaminophen PO 07/30 1414 Electrolytic, Caloric, And Naomi Sig/Maggie Start time Last Medication Dose Route Stop Time Status Admin Sodium Chloride 1,000 ML X1ED STA 07/30 1413 DC 07/30 IV 07/30 1414 1429 Gastrointestinal Drugs Sig/Maggie Start time Last Medication Dose Route Stop Time Status Admin Ondansetron HCl 4 MG ONCE ONE 07/30 1415 DC 07/30 IV 07/30 1416 1429 Patient Discharge Departure Vital Signs/Condition Vital Signs First Documented: Result Date Time Pulse Ox 100 07/30 1350 B/P 110/76 07/30 1350 B/P Mean 87 07/30 1350 O2 Delivery Room air 07/30 1350 Temp 36.9 07/30 1350 Pulse 88 07/30 1350 Resp 16 07/30 1350 Last Documented: Result Date Time Pulse Ox 100 07/30 1350 B/P 110/76 07/30 1350 B/P Mean 87 07/30 1350 O2 Delivery Room air 07/30 1350 Temp 36.9 07/30 1350 Pulse 88 07/30 1350 Resp 16 07/30 1350 All vital signs available at the time of this entry have been reviewed. Condition Stable Clinical Impression Clinical Impression Primary Impression: RLQ abdominal pain Discharge/Care Plan (Auto) Prescriptions Current Visit Scripts No Known Home Medications at 1725 RPT #:[id number] END OF REPORT [facility] 2021-07-30 14:10:00 [facility] ([facility]) EMERGENCY PROVIDER REPORT REPORT#:[id number] REPORT STATUS: Signed DATE:07/30/21 TIME: 1410 PATIENT: DRE GARCIA UNIT #: [id number] ROOM/BED: AGE: 21 SEX: F PCP PHYS: Muriel De Los Santos MD SERVICE AUTHOR: Parth Knowles MD * ALL edits or amendments must be made on the electronic/computer document * Sang Knowles 07/30/21 1410: HPI-Abd Pain F Under 40 General Initial Greet Date/Time 07/30/21 1331 Presentation Chief Complaint Pelvic pain, , 1st trimester Sudden in Onset? No Free Text HPI Notes Free Text HPI Notes Patient is about 17 weeks she comes in with history of 8 days of RLQ, nausea and vomiting, patient was seen by her OB?ENVIRONMENTAL SERVICES ASSOCIATE this morning who sent the patient to be evaluated to r/o appendicitis Risk-Abd Pain F Under 40 )( Ectopic Risk factors reviewed Review of Systems ROS Statements All systems rev neg except as marked. Basic Review of Systems Basic ROS EYES: No redness, ENT: No sore throat, HEM: No bleeding/bruising, SKIN : No rash, NEURO: No change MS, NEURO: No focal deficit, PSYCH: NL thought content Focused Review of Systems Constitutional Denies: Recent wt loss. Respiratory Denies: Pleuritic pain. Cardiovascular Denies: Orthopnea. GI Reports: Abdominal pain, Nausea, Vomiting. Female Denies: Pelvic pain, . Musculoskeletal Denies: Back pain, Extremity pain, Joint pain. Past Medical History - Adult Stated Complaint 17 WKS,RIGHT SIDE LOWER QUADRANT PAIN Allergies Uncoded Allergies: PENICILLIN (05/21/09) Home Medications Reported Medications No Known Home Medications Smoking status: Smoking status for patients 13 years old or older: Never Smoker Physical Exam Vital Signs Vital Signs First Documented: Result Date Time Pulse Ox 100 07/30 1350 B/P 110/76 07/30 1350 B/P Mean 87 07/30 1350 O2 Delivery Room air 07/30 135 Temp 36.9 07/30 1350 Pulse 88 07/30 1350 Resp 16 07/30 1350 Last Documented: Result Date Time Pulse Ox 100 07/30 1950 B/P 102/56 07/30 1950 B/P Mean 71 07/30 1950 O2 Delivery Room air 07/30 1950 Pulse 72 07/30 1950 Resp 18 07/30 1950 Temp 36.9 07/30 1350 Review of Vital Signs Reviewed Basic Physical Exam Basic PE HEAD: Atraumatic/NC, EYES: PERRL, conj clear, ENT: Membranes moist, NECK: Supple, EXT: No gross abnormality, SKIN: No rashes, warm/dry, NEURO: alert oriented, NEURO: gross movement NL, PSYCH: NL thought content Focused PE General/Const General/Const Awake, Alert Resp/Chest Respiratory/Chest Atraumatic, Breath sounds NL, Breath sounds = bilat Cardiovascular Cardiovascular Regular rhythm, Heart sounds NL Abdomen/GI Abdomen/GI Non-tender, McBurney's non-tender, No guarding MS Back Back Inspection NL, Full range of motion, Painless range of motion Skin Skin Warm, Dry Interpretation Diagnostics Lab Results Interpretation Results Laboratory Tests 07/30/21 1414: [Embedded Image Not Available] Laboratory Tests: 07/30 07/30 1414 1359 Chemistry Sodium (135 - 145 mEq/L) 139 Potassium (3.5 - 5.0 mEq/L) 4.2 Chloride (100 - 115 mEq/L) 106 Carbon Dioxide (22 - 31 mEq/L) 25 Anion Gap (10 - 20) 12.30 BUN (7 - 18 mg/dL) 6 L Creatinine (0.5 - 1.0 mg/dL) 0.5 Glomerular Filtr Rate (>60 ml/min) 156 Glucose (65 - 110 mg/dL) 84 Calcium (8.4 - 10.2 mg/dL) 8.8 Total Bilirubin (0.2 - 1.0 mg/dL) 0.2 AST (15 - 37 units/L) 12 L ALT (12 - 78 units/L) 16 Total Alk Phosphatase (46 - 116 units/L) 64 Total Protein (6.3 - 8.2 gm/dL) 6.5 Albumin (3.4 - 4.8 gm/dL) 3.2 L Amylase (30 - 110 units/L) 47 Hematology WBC (6.5 - 12.3 K/mm3) 9.8 RBC (3.51 - 4.69 M/mm3) 3.62 Hgb (10.1 - 13.8 g/dL) 10.9 Hct (32.5 - 41.8 %) 31.9 L MCV (84.6 - 96.6 fL) 88.1 MCH (27.3 - 33.9 pg) 30.1 MCHC (32.0 - 34.2 gm/dL) 34.2 RDW (12.2 - 16.3 %) 13.2 Plt Count (134 - 363 K/mm3) 288 MPV (9.2 - 12.7 fL) 8.9 L Neut % (Auto) (57.9 - 77.3 %) 74.4 Lymph % (Auto) (14.5 - 29.7 %) 19.7 [place] % (Auto) (3.6 - 10.2 %) 4.8 Eos % (Auto) (0.0 - 3.0 %) 0.5 Baso % (Auto) (0.1 - 0.9 %) 0.1 Neut # (Auto) (K/mm3) 7.3 Lymph # (Auto) (K/mm3) 1.9 [place] # (Auto) (K/mm3) 0.5 Eos # (Auto) (K/mm3) 0.05 Baso # (Auto) (K/mm3) 0.0 Urines Urine Color (YELLOW) STRAW Urine Appearance (CLEAR) CLEAR Urine pH (5 - 9) 7.0 Ur Specific [place] (1.001 - 1.035) 1.002 Urine Protein (NEG) NEGATIVE Urine Glucose (UA) (NEG) NEGATIVE Urine Ketones (NEG) NEGATIVE Urine Blood (NEG) NEG Urine Nitrite (NEG) NEG Urine Bilirubin (NEG) NEGATIVE Urine Urobilinogen (NEG mg/dL) NEGATIVE Ur Leukocyte Esterase (NEG) 3+ H Urine RBC (NONE SEEN #/hpf) 3-5 H Urine WBC (NONE SEEN #/hpf) 6-10 H Ur Epithelial Cells (RARE - FEW #/HPF) FEW Urine Bacteria (RARE - FEW /HPF) RARE Microbiology: Date/Time Procedure - Status Source Growth 07/30 1440 Urine Culture - RECD URINE Recent Impressions: ULTRASOUND - US ABDOMEN LTD 07/30 1555 Report Impression - Status: SIGNED Entered: 07/30/2021 1705 IMPRESSION: Findings consistent with acute appendicitis. Impression By: Scott Ambrosio MD ULTRASOUND - US LTD 07/30 1555 Report Impression - Status: SIGNED Entered: 07/30/2021 1716 IMPRESSION: 1. Single, viable intrauterine gestation in breech presentation with estimated heart rate approximately 148 bpm. 2. Posterior placenta, grade 1, without previa or retroplacental hemorrhage. 3. The cervix is closed measuring 4.4 cm in length. 4. Normal-sized maternal right ovary without focal lesion. Nonvisualized left ovary. 5. No free fluid. Impression By: [email or web address] - Moses Mayorga MD MAGNETIC [facility]ON[facility] IMAGING - MRI ABDOMEN W/O CONT 07/30 182 Report Impression - Status: SIGNED Entered: 07/30/20212010 IMPRESSION: No acute finding. Impression By: [email or web address] - Anant Qiu MD Lab Imaging Statement Laboratory radiographic studies reviewed and considered in the medical decision-making. Re-Evaluation MDM )( Re-Evaluation/Progress #1 )( Re-Eval Status Improved ED Course Medication(s) Ordered Medication(s) Ordered: Central Nervous System Agents Sig/Maggie Start time Last Medication Dose Route Stop Time Status Admin Morphine Sulfate 4 MG X1ED STA 07/30 1421 DC 07/30 IV 07/30 1422 1429 Hydrocodone Bitart/ 1 TAB X1ED STA 07/30 1413 CAN Acetaminophen PO 07/30 1414 Electrolytic, Caloric, And Naomi Sig/Maggie Start time Last Medication Dose Route Stop Time Status Admin Sodium Chloride 1,000 ML X1ED STA 07/30 1413 DC 07/30 IV 07/30 1414 1429 Gastrointestinal Drugs Sig/Maggie Start time Last Medication Dose Route Stop Time Status Admin Ondansetron HCl 4 MG ONCE ONE 07/30 1415 DC 07/30 IV 07/30 1416 1429 Patient Discharge Departure Vital Signs/Condition Vital Signs First Documented: Result Date Time Pulse Ox 100 07/30 1350 B/P 110/76 07/30 1350 B/P Mean 87 07/30 1350 O2 Delivery Room air 07/30 1350 Temp 36.9 07/30 1350 Pulse 88 07/30 1350 Resp 16 07/30 1350 Last Documented: Result Date Time Pulse Ox 100 07/30 1950 B/P 102/56 07/30 1950 B/P Mean 71 07/30 1950 O2 Delivery Room air 07/30 1950 Pulse 72 07/30 1950 Resp 18 07/30 1950 Temp 36.9 07/30 1350 All vital signs available at the time of this entry have been reviewed. Condition Stable Clinical Impression Clinical Impression Primary Impression: RLQ abdominal pain Discharge/Care Plan (Auto) Prescriptions Current Visit Scripts No Known Home Medications Myla Londono 07/30/21 2018: Re-Evaluation MDM Re-Evaluation/Progress #2 Text/Dict Note tender in RLQ Time of 2018 Free Text MDM Notes Free Text MDM Notes 21 yo female 17 weeks RLQ pain US and MRI neg (note that the initial US read was addended to be equivocal) abdomen remains tender discussed with Dr Sharma, will place in obs Patient Discharge Departure Disposition Decision Admit Admit Physician Name Muriel De Los Santos MD Admit Physician POT [employer]ANDER Request Time 2020 Request Date 07/30/21 )( Admission Accepts Yes )( Accepted Time 2020 )( Accepted Date 07/30/21 Discharge/Care Plan Counseled Regarding Diagnosis, Lab results, Imaging studies, Need for admission at 1725 at 2024 RPT #:[id number] END OF REPORT [facility]
[2025-01-25] MEDS ORDERED: dexAMETHasone 10 MG/ML VIAL ONE (12:24)
[2025-01-25] MEDS ORDERED: METOCLOPRAMIDE 10 MG/2mL INJ ONE (12:24)
[2025-01-25] MEDS ORDERED: NA CHLORIDE 0.9% 1,000 ML ONE (12:25)
--- NOTE | 2025-01-25 12:33 | RAD REPORT ---
EXAM: CT Head Brain Wo Cont HISTORY: HEADACHE COMPARISON: 04/14/2019 TECHNIQUE: Multiple contiguous axial images were obtained for a CT of the brain without contrast. Sag ittal and coronal reformats were performed. One or more of the following dose reduction techniques were used: Automated exposure control, adjus tment of the mA and kV according to patient size, and iterative reconstruction. Unless otherwise specified, incidental findings do not require dedicated imaging follow-up. FINDINGS: No evidence of hydrocephalus, intracranial hemorrhage, or extra-axial fluid collection. The brain is normal in morphology. The calvarium is intact. The visualized paranasal sinuses and mastoid air cells are essentially clear . IMPRESSION: No evidence of acute intracranial abnormality.
--- NOTE | 2025-01-25 13:52 | ER ---
Nurse's Notes [facility] Name: Renetta Martin Age: 24 yrs Sex: Female : 2000 Arrival Date: 01/25/2025 Time: 11:49 Bed 24 Private MD: Diagnosis: Headache Presentation: 01/25 11:57 Chief complaint: Patient states: HEADACHE THAT IS WORSENING SINCE YESTERDAY. STATES db PAIN WITH TOUCH AND PAIN WITH AIR CONDITIONING HITTING HEAD. [facility] HAS NEUROLOGY APPOINTMENT SCHEDULED. Coronavirus screen: Client denies travel out of the [place] in the last 14 days. At this time, the client does not indicate any symptoms associated with coronavirus-19. Ebola Screen: Patient negative for fever greater than or equal to 101.5 degrees Fahrenheit, and additional compatible Ebola Virus Disease symptoms Patient denies exposure to infectious person. Patient denies travel to an Ebola-affected area in the 21 days before illness onset. No symptoms or risks identified at this time. Initial Sepsis Screen: Does the patient meet any 2 criteria? No. Patient's initial sepsis screen is negative. Does the patient have a suspected source of infection? No. Patient's initial sepsis screen is negative. Risk Assessment: Do you want to hurt yourself or someone else? Patient reports no desire to harm self or others. Onset of symptoms was January 25, 2025. 11:57 Method Of Arrival: Ambulatory db 11:57 Acuity: IRENE 3 db Triage Assessment: 12:00 Headache History: The patient has had previous headaches and this one is different than db previous episodes. General: Appears in no apparent distress. comfortable, Behavior is calm, cooperative. Pain: Complains of pain in head Pain currently is 6 out of 10 on a pain scale. Pain began 1 day ago. Also complains of. Neuro: Level of Consciousness is awake, alert, obeys commands, Oriented to person, place, time, situation. 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 - Infectious Disease History:: Denies. - Social history:: Smoking status: unknown. - Family history:: not pertinent. - Hospitalizations: : No recent hospitalization is reported. Screenin:33 [facility] ED Fall Risk Assessment (Adult) History of falling in the last 3 months, me1 including since admission No falls in past 3 months (0 pts) Confusion or Disorientation No (0 pts) Intoxicated or Sedated No (0 pts) Impaired Gait No (0 pts) Mobility Assist Device Used No (0 pt) Altered Elimination No (0 pt) Score/Fall Risk Level 0 - 2 = Low Risk. Abuse screen: Denies threats or abuse. Nutritional screening: No deficits noted. Tuberculosis screening: No symptoms or risk factors identified. Assessment: 12:33 General: Appears in no apparent distress. uncomfortable, well groomed, well developed, me1 well nourished, Behavior is calm, cooperative, appropriate for age, Reports headache worsening since yesterday. Pain: Complains of pain in right temporal area and right frontal area and head Pain does not radiate. Pain currently is 6 out of 10 on a pain scale. Quality of pain is described as aching, Pain began 1 day ago. Is continuous. Neuro: Level of Consciousness is awake, alert, obeys commands, Oriented to person, place, time, situation, Appropriate for age. Neuro: Reports headache frontal area. Cardiovascular: Patient's skin is warm and dry. Respiratory: Airway is patent Respiratory effort is even, unlabored, Respiratory pattern is regular, symmetrical. GI: No signs and/or symptoms were reported involving the gastrointestinal system. : No signs and/or symptoms were reported regarding the genitourinary system. EENT: No signs and/or symptoms were reported regarding the EENT system. Derm: Skin is intact, is healthy with good turgor, Skin is pink, warm \T\ dry. Musculoskeletal: No signs and/or symptoms reported regarding the musculoskeletal system. Vital Signs: 11:57 BP 148 / 93; Pulse 82; Resp 18; Temp 98.5; Pulse Ox 100% ; Weight 49.9 kg; Height 5 ft. db 6 in. ; 13:00 BP 116 / 70; Pulse 91; Resp 14; Pulse Ox 100% ; me1 13:28 Pain 0/10; me1 13:28 Pain 0/10; me1 13:57 BP 118 / 69; Pulse 98; Resp 16; Temp 98.4; Pulse Ox 100% ; me1 11:57 Body Mass Index 17.75 (49.90 kg, 167.64 cm) db 13:28 Pain Scale: Adult me1 13:28 Pain Scale: Adult me1 Arun Coma Score: 13:49 Eye Response: spontaneous(4). Motor Response: obeys commands(6). Verbal Response: rn oriented(5). Total: 15. ED Course: 11:51 Patient arrived in ED. mr 11:52 Javier Schaefer MD is Attending Physician. rn 11:58 Triage completed. db 11:59 Arm band placed on Patient placed in an exam room. EKG completed in triage. Results db shown to MD. 12:14 Monica Childs, RN is Primary Nurse. me1 12:22 Inserted saline lock: 22 gauge in right antecubital area, using aseptic technique. me1 12:26 CT Head Brain wo Cont In Process Unspecified. EDMS 12:33 Patient has correct armband on for positive identification. Bed in low position. Call me1 light in reach. Side rails up X 1. Provided Education on: POC. Verbalized understanding.. Client placed on continuous cardiac and pulse oximetry monitoring. NIBP monitoring applied. Pulse ox on. NIBP on. 12:33 No provider procedures requiring assistance completed. me1 14:01 IV discontinued, intact, bleeding controlled, No redness/swelling at site. Pressure me1 dressing applied. Administered Medications: 12:31 Drug: NS 0.9% IV 1000 ml IV at 1000 ml once; to be given as a bolus over 60 minutes me1 Route: IV; Rate: 1000 ml; Site: right antecubital; 13:28 Follow up: Response: No adverse reaction; IV Status: Completed infusion; IV Intake: me1 1000ml 12:32 Drug: metoCLOPramide IVP 10 mg IVP once; over 1 to 2 minutes Route: IVP; Site: right me1 antecubital; 13:28 Follow up: Pain 0/10 Adult; Response: No adverse reaction; Pain is decreased me1 12:32 Drug: Decadron - Dexamethasone IVP 10 mg IVP once Route: IVP; Site: right antecubital; me1 13:28 Follow up: Pain 0/10 Adult; Response: No adverse reaction; Pain is decreased me1 Medication: 12:33 VIS not applicable for this client. me1 Intake: 13:28 IV: 1000ml; Total: 1000ml. me1 Outcome: 13:51 Discharge ordered by . rn 14:01 Discharged to home ambulatory, me1 14:01 Condition: stable 14:01 Discharge instructions given to patient, Instructed on discharge instructions, follow up and referral plans. medication usage, Demonstrated understanding of instructions, follow-up care, medications, Prescriptions given X 2, 14:01 Patient left the ED. me1 Signatures: Dispatcher [employer] EDID PalmaKim, Reg Reg mr Javier Schaefer MD MD rn Benton, Danielle, RN RN db Eddleman, Michelle, RN RN me1 Corrections: (The following items were deleted from the chart) 12:01 11:57 Chief complaint: Patient states: HEADACHE THAT IS WORSENING. STATES PAIN WITH db TOUCH AND PAIN WITH AIR CONDITIONING HITTING HEAD. STATES HAS NEUROLOGY APPOINTMENT SCHEDULED. db 12:01 11:57 BP 148 / 93; Pulse 82bpm; Resp 18bpm; Pulse Ox 100%; Temp 98.5F; db db
--- NOTE | 2025-01-25 13:52 | EDPHYS ---
Physician Documentation [facility] Name: Renetta Martin Age: 24 yrs Sex: Female : 2000 Arrival Date: 01/25/2025 Time: 11:49 Bed 24 Private MD: ED Physician Javier Schaefer HPI: 01/25 12:24 This 24 yrs old Female presents to ER via Ambulatory with complaints of Headache. rn 12:24 The patient complains of pain to the right frontal area and right temporal area. The rn patient describes the headache as aching, constant. Onset: The symptoms/episode began/occurred yesterday. Severity of symptoms: At its worst the pain was moderate, in the emergency department the pain is unchanged. The patient has not experienced similar symptoms in the past. Patient reports right-sided headache, sensitivity and pain to the scalp and right side of head. No neck stiffness. No head injury or neck injury. No focal neurological deficit. No vision changes. No speech problem. 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 Also reports over the last few months has had a few seizures, has neurology appointment set up but has not seen neurology yet. Does not take seizure medicine. No seizure in the last week.. 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 - Infectious Disease History:: Denies. - Social history:: Smoking status: unknown. - Family history:: not pertinent. - Hospitalizations: : No recent hospitalization is reported. ROS: 12:24 Constitutional: Negative for fever, chills, and weight loss, Neck: Negative for injury, rn pain, and swelling, Cardiovascular: Negative for chest pain, palpitations, and edema, Respiratory: Negative for shortness of breath, cough, wheezing, and pleuritic chest pain, Abdomen/GI: Negative for abdominal pain, nausea, vomiting, diarrhea, and constipation, MS/Extremity: Negative for injury and deformity, Skin: Negative for injury, rash, and discoloration, Neuro: Positive for headache Exam: 12:24 Constitutional: This is a well developed, well nourished patient who is awake, alert, rn tearful but ambulatory to triage without assistance Head/Face: Normocephalic, atraumatic. Neck: No neck stiffness or meningismus Cardiovascular: Regular rate and rhythm. No pulse deficits. Respiratory: No increased work of breathing, no retractions or nasal flaring. MS/ Extremity: Pulses equal, no cyanosis. Neuro: Awake and alert, GCS 15, oriented to person, place, time, and situation. Cranial nerves II-XII grossly intact. Motor strength 5/5 in all extremities. Sensory grossly intact. Cerebellar exam normal. Normal gait. Vital Signs: 11:57 BP 148 / 93; Pulse 82; Resp 18; Temp 98.5; Pulse Ox 100% ; Weight 49.9 kg; Height 5 ft. db 6 in. ; 13:00 BP 116 / 70; Pulse 91; Resp 14; Pulse Ox 100% ; me1 13:28 Pain 0/10; me1 13:28 Pain 0/10; me1 13:57 BP 118 / 69; Pulse 98; Resp 16; Temp 98.4; Pulse Ox 100% ; me1 11:57 Body Mass Index 17.75 (49.90 kg, 167.64 cm) db 13:28 Pain Scale: Adult me1 13:28 Pain Scale: Adult me1 Allamuchy Coma Score: 13:49 Eye Response: spontaneous(4). Motor Response: obeys commands(6). Verbal Response: rn oriented(5). Total: 15. MDM: 11:52 Medical Screening Exam initiated rn 13:49 Differential diagnosis: cluster headache, migraine, sinusitis, tension headache, rn trigeminal neuralgia, vasomotor headache. Data reviewed: vital signs, nurses notes, radiologic studies, CT scan, and as a result, I will discharge patient. Counseling: I had a detailed discussion with the patient and/or guardian regarding the historical points, exam findings, and any diagnostic results supporting the discharge/admit diagnosis, radiology results, the need for outpatient follow up, to return to the emergency department if symptoms worsen or persist or if there are any questions or concerns that arise at home. Response to treatment: the patient's symptoms have markedly improved after treatment, and as a result, I will discharge patient. Special discussion: I discussed with the patient/guardian in detail that at this point there is no indication for admission to the hospital. It is understood, however, that if the symptoms persist or worsen the patient needs to return immediately for re-evaluation. Based on the history and exam findings, there is no indication for further emergent testing or inpatient evaluation. I discussed with the patient/guardian the need to see the neurologist for further evaluation of the symptoms. ED course: CT head without acute findings. After long discussion with patient, she would like to try medication for possible trigeminal neuralgia and will follow-up with neurology for further instructions. Return precautions given and understood.. 01/25 12:03 Order name: CT Head Brain wo Cont; Complete Time: 12:39 rn 01/25 12:03 Order name: IV Start; Complete Time: 12:21 rn Administered Medications: 12:31 Drug: NS 0.9% IV 1000 ml IV at 1000 ml once; to be given as a bolus over 60 minutes me1 Route: IV; Rate: 1000 ml; Site: right antecubital; 13:28 Follow up: Response: No adverse reaction; IV Status: Completed infusion; IV Intake: me1 1000ml 12:32 Drug: metoCLOPramide IVP 10 mg IVP once; over 1 to 2 minutes Route: IVP; Site: right me1 antecubital; 13:28 Follow up: Pain 0/10 Adult; Response: No adverse reaction; Pain is decreased me1 12:32 Drug: Decadron - Dexamethasone IVP 10 mg IVP once Route: IVP; Site: right antecubital; me1 13:28 Follow up: Pain 0/10 Adult; Response: No adverse reaction; Pain is decreased me1 Disposition Summary: 01/25/25 13:51 Discharge Ordered Notes: Location: Home rn Problem: new rn Symptoms: have improved rn Condition: Stable rn Diagnosis - Headache rn Followup: rn - With: Private Physician - When: As needed - Reason: Recheck today's complaints, Re-evaluation by your physician Discharge Instructions: - Discharge Summary Sheet rn - General Headache Without Cause rn - Trigeminal Neuralgia rn Forms: - Medication Reconciliation Form rn - 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
[2025-01-25 14:17] VITALS: O2SAT 100
[2025-01-25 14:23] VITALS: BP 118/69; TEMP 98.4
== END 2025-01-25 14:01 | disposition home or self-care (01) ==
LOC: ER 11:49
DX: R51.9 Headache, unspecified (principal)
CPT/HCPCS: 70450; J2765; J1100; J7030; 96361; 96374; 96375; 99284

== ENCOUNTER 2025-02-05 00:18 | Emergency (ER) | payer BC ==
--- OUTSIDE RECORDS SUMMARY | 2025-02-05 00:22 | XMS REPORT | Continuity of Care Document ---
Author Name Unknown Address [address] [facility] [place] [address] [facility] Address [address] [facility] [place] [address] [address] Prov[address] Care Court Specialist Name Role Phone LINDEN ZIMMERMAN Primary Care Physician ALFRED Diego Attending Clinician Unavail able ALFRED BRAGG Attending Clinician Unavail able Alfred Bragg MD Attending Clinician Doctor Unassigned, [place] Attending Clinician U navailMuriel Wilson Attending Clinician Unavailable Doctor Unassigned, [place] Attending Clinician U navailable Provider, [facility] Attending Clinician Un available Mary Anne Serna Attending Clinician [phone] Lab, Adc Fam Pob I Attending Clinician Unavailab MARY ANNE Marin Attending Clinician Unavailable Yemi SUGGS, Alfred Ontiveros Attending Clinician Muriel De Los Santos Admitting Clinician Unavailable Payers Payer Name Policy Type Policy Number Effective Date Expirati on Date Source [facility] [id number] 2024 00:00:00 Problems Condition Name Condition Details Condition Category Status Onset Date Resolution Date Last Treatment Date Treating Clinician Comments Source No known active problems No known active problems Disease [facility] Allergies, Adverse Reactions, Alerts Allergy Name Allergy Type Status Severity Reaction(s) Onset Date Inactive Date Treating Clinician Comments Source Penicill ins DA Active MO RASH 12-24 00:00: 00 [facility] Penicill ins DA Active MO RASH 12-06 00:00: 00 [facility] PENICILL IN DA Active U RASH, SWELLING 07-31 00:00: 00 [facility] Penicill ins Propensi ty to adverse reaction s Active Rash 06-19 00:00: 00 [facility] PENICILL INS Drug Class Active Rash 06-19 00:00: 00 [facility] Penicill ins Propensi ty to adverse reaction s Active Rash 06-19 00:00: 00 [facility] PENICILL IN DA Active U 07-22 00:00: 00 [facility] Social History Social Habit Start Date Stop Date Quantity Comments Source History SDOH Alcohol Std Drinks [facility] History SDOH Alcohol Binge [facility] Alcoholic beverage intake 2025-01-30 00:00:00 2025-01-30 00:00:00 Lifetime non-drinker (finding) [facility] Tobacco use and exposure 2025-01-27 00:00:00 2025-01-27 00:00:00 Smokeless tobacco non-user [facility] Exposure to SARS-CoV-2 (event) 2021-02-24 00:00:00 2021-03-26 10:34:00 Yes [facility] Alcohol intake 2021-03-26 00:00:00 2021-03-26 00:00:00 Lifetime non-drinker (finding) [facility] History of Social function 2021-03-26 00:00:00 2021-03-26 00:00:00 [facility] History SDOH Alcohol Frequency 2019-05-24 00:00:00 2019-05-24 00:00:00 1 [facility] Sex assigned at 2000 00:00:00 2000 00:00:00 [facility] Smoking Status Start Date Stop Date Source Never smoked tobacco [facility] Medications Ordered Medication Name Filled Medication Name Start Date Stop Date Current Medication? Ordering Clinician Indication Dosage Frequency Signature (SIG) Comments Components Source MUPIROCIN 2 % TOPICAL OINT 03-26 19:38: 36 03-26 00:00 :00 No None Entered [facility] topiramate 25 mg tablet 2018-11 217 00:00: 00 01-27 00:00 :00 No [id number] 25mg Take 1 tablet by mouth 2 (two) times daily. [facility] TOPIRAMATE 25 mg tablet 8 00:00: 00 Yes [id number] TAKE 1 TABLET BY MOUTH TWICE DAILY [facility] MUPIROCIN 2 % TOPICAL OINT 05-24 13:19: 43 Yes None Entered [facility] topiramate 25 mg tablet 05-24 00:00: 00 07-18 00:00 :00 No [id number] 25mg Take 1 tablet by mouth 2 (two) times daily. [facility] Immunizations Ordered Immunization Name Filled Immunization Name Date Status Comments Source SARS-COV-2 COVID-19 RICKI/J&J VACCINE 2021-02-07 00:00:00 Completed [facility] SARS-COV-2 COVID-19 RICKI/J&J VACCINE 2021-02-07 00:00:00 Completed [facility] SARS-COV-2 COVID-19 RICKI/J&J VACCINE Unknown Completed [facility] Vital Signs Vital Name Observation Time Observation Value Comments S ource BMI 2025-01-27 16:49:00 19.67 kg/m2 General acute hospital Oxygen saturation in Arterial blood by Pulse oximetry 2025-01-27 16:49:00 100 /min [facility] Systolic blood pressure 2025-01-27 16:49:00 109 mm[Hg] [facility] Diastolic blood pressure 2025-01-27 16:49:00 71 mm[Hg] [facility] Heart rate 2025-01-27 16:49:00 73 /min [facility] Respiratory rate 2025-01-27 16:49:00 18 /min [facility] Body height 2025-01-27 16:49:00 166.4 cm General acute hospital Body weight 2025-01-27 16:49:00 54.432 kg General acute hospital Systolic blood pressure 2021-03-26 18:33:00 102 mm[Hg] [facility] Diastolic blood pressure 2021-03-26 18:33:00 72 mm[Hg] [facility] Heart rate 2021-03-26 18:33:00 89 /min [facility] Body temperature 2021-03-26 18:33:00 37 Delia [facility] Body height 2021-03-26 18:33:00 165.1 cm General acute hospital Body weight 2021-03-26 18:33:00 52.164 kg General acute hospital BMI 2021-03-26 18:33:00 19.14 kg/m2 General acute hospital Oxygen saturation in Arterial blood by Pulse oximetry 2021-03-26 18:33:00 98 /min [facility] Procedures Procedure Date / Time Performed Performing Clinic[facility] n Source [id number] 2021-12-25 00:00:00 [facility] [id number] 2021-12-25 00:00:00 [facility] [id number] 2021-12-25 00:00:00 [facility] [id number] 2021-12-25 00:00:00 [facility] [id number] 2021-12-25 00:00:[address] [facility] DELEGATION OF CONSENT FOR MEDICAL TREATMENT OF A MINOR 2017-10-07 06:01:00 Doctor Unassigned, [place] [facility] Encounters Start Date/Time End Date/Time Encounter Type Admission Type Attending [facility] Care Facility Care Department Encounter ID Source 2025-01-27 11:00:00 2025-01-27 11:46:57 Outpatient R ALFRED BRAGG [facility] [id number] [facility] 2025-01-27 11:00:00 2025-01-27 11:46:57 Office Visit Alfred Bragg [facility] 1.2.840.114 350.1.13.10 4.2.7.2.686 [id number] [facility] 2017-10-07 00:00:00 2025-01-14 03:34:00 Orders Only Doctor Unassigned, [place] Doctor Unassigned, [place] [facility] 1.2.840.114 350.1.13.10 4.2.7.2.686 [id number] [facility] 2021-12-24 12:37:00 2021-12-27 13:10:00 Inpatient EM Muriel De Los Santos [facility] OBPP [id number] [facility] 2021-12-06 15:29:00 2021-12-06 16:40:00 Emergency EM Muriel De Los Santos [facility] ESTELITA [id number] [facility] 2021-07-31 02:46:00 2021-08-01 16:00:00 Emergency EM Muriel De Los Santos [facility] OBANTE [id number] [facility] 2021-03-29 00:00:00 2021-03-29 00:00:00 Patient Secure Msg Doctor Unassigned, [place] [facility] 1..840.114 350.1.13.10 4.2.7.2.686 [id number] [facility] 2021-03-26 13:28:23 2021-03-26 13:48:23 Urgent Care Provider, [facility] 1.114 350.1.13.10 4.2.7.2.686 [id number] [facility] 2021-03-26 13:20:00 2021-03-26 13:20:00 Outpatient R [facility] [id number] [facility] 2021-03-26 13:00:00 2021-03-26 13:00:00 Outpatient R [facility] [id number] [facility] 2021-02-07 14:15:00 2021-02-07 14:15:00 Outpatient [facility] [id number] [facility] 2020-12-24 10:46:19 2020-12-24 11:06:19 Laboratory Only Lab, [facility] I Valentin [facility] Office Building One .114 350.1.13.10 4.2.7.2.686 [id number] [facility] 2020-12-24 10:46:19 2020-12-24 11:06:19 Laboratory Only Lab, [facility] Office Building One .114 350.1.13.10 4.2.7.2.686 [id number] 2020-12-24 10:40:00 2020-12-24 10:40:00 Outpatient R MARY ANNE HANSON [facility] [id number] [facility] 2020-11-09 14:04:34 2020-11-09 14:24:34 Laboratory Only Lab, [facility] Office Building One .114 350.1.13.10 4.2.7.2.686 [id number] 2020-11-09 14:04:34 2020-11-09 14:24:34 Laboratory Only Lab, [facility] 1.2.840.114 350.1.13.10 4.2.7.2.686 [id number] [facility] 2020-11-09 14:00:00 2020-11-09 14:00:00 Outpatient MARY ANNE WALLACE [facility] [id number] [facility] 2019-07-18 00:00:00 2019-07-18 00:00:00 Lavinia Bragg [facility] Building 1.2.840.114 350.1.13.10 4.2.7.2.686 [id number] 2019-07-18 00:00:00 2019-07-18 00:00:00 Lavinia Bragg [facility] 1.2.840.114 350.1.13.10 4.2.7.2.686 [id number] [facility] Results Test Description Test Time Test Comments Results Result Co mments Source AB HEPATITIS C [id number] 20:25:00* Test Item Value Reference Range Interpretation Comme nts AB HEPATITIS C (test code = HCVAB) NONREACTIVE NONREACTIVE SIGNAL TO CUTOFF (test code = CUTOFF) <0.02 <0.80 N AB [id number] 20:25:00* Test Item Value Reference Range Interpretation Comme nts AB TREPONEMA (test code = TREPAB) NONREACTIVE NONREACTIVE AB HIV 1 20:25:00* Test Item Value Reference Range Interpretation Comme nts AB HIV 1 2 (test code = [id number]) NONREACTIVE NONREACTIVE Done by Siemens NextInputaur 4th Gen HIV Ag/Ab Combo Screen CBC W/AUTO [id number] 18:18:00* Test Item Value Reference Range Interpretation [...] PLTMR) NORMAL NORMAL COVID 19 Asymptomatic IH [id number] 17:40:00* Test Item Value Reference Range Interpretation [...] testsfor detection and/or diagnosis of COVID-19 under Mfesxro306(b)(1) of the Act, 21 U.S.C. 360bbb-3(b)(1), unless theauthorization is terminated or revoked sooner. - FET BIO PH CT W/O [id number] 00:00:00 [facility] : 2000 Sex: F Patient Name: DRE GARCIA Unit No: [id number] EXAMS: CPT CODE: [id number] US FET BIO PH CT W/O NST 19990 PROCEDURE INFORMATION: Exam: US Biophysical Profile Without Non-Stress Test Exam date and time: 12/06/2021 4:14 PM Age: 21 years old Clinical indication: Screening exam; Routine US screeningof fetus; Third trimester (=28 weeks 0 days); ; Additional info: Iup at 36.2 weeks decreased fm TECHNIQUE: Imaging protocol: US biophysical profile without non-stress testing. COMPARISON: OT US LTD 07/30/2021 4:05 PM FINDINGS: Gestation: [...] RDMS Probe: Trnscrbd D/ (1649) GCD.CPS Orig PrintD/T: S: 12/06/2021 (1650) [facility] NAME: RADHABRENDANDRE Radiology Department PHYS: Emory Patterson [address] : 2000 AGE: 21 SEX: F [place], [place] [address] LOC: NeilESTELITA PHONE #: [phone] EXAM DATE: 12/06/2021 STATUS: REG ER FAX #: [phone] RAD NO: Page 1 Signed Report Patient Name: DRE GARCIA Unit No: [id number] EXAMS: CPT CODE: [id number] US FET BIO PH CT W/O NST 59138 <Continued> [facility] Rad[facility] PHYS: Emory Patterson [address] : 2000 AGE: 21 SEX: F [place], [place] [address] LOC: LUC PHONE #: [phone] EXAM DATE: 12/06/2021 STATUS: GIL ER FAX #: [phone] RAD NO: Page 2 Signed ReportCOVID 19 Asymptomatic IH [id number] 23:51:00* Test Item Value Reference Range Interpretation [...] testsfor detection and/or diagnosis of COVID-19 under Ctguhgi280(b)(1) of the Act, 21 U.S.C. 360bbb-3(b)(1), unless theauthorization is terminated or revoked sooner. [id number] 16:34:00* Test Item Value Reference Range Interpretation Comme nts AMYLASE (test code = ENRICO) 47 units/L 30-110 N COMPREHENSIVE METABOLIC [id number] 16:34:00* Test Item Value Reference Range Interpretation [...] ALKP) 64 units/L 46-116 N CBC W/AUTO [id number] 14:48:00* Test Item Value Reference Range Interpretation [...] NORMAL NORMAL UA RFLX MICR CULT IF [id number] 14:40:00* Test Item Value Reference Range Interpretation [...] PainSpecimen Description: CLEAN CATCH- MRI ABDOMEN W/O [id number] 00:00:00 [facility] 2000 Sex: F Patient Name: DRE GARCIA Unit No: [id number] EXAMS: CPT CODE: [id number] MRI ABDOMEN W/O CONT 35796 PROCEDURE INFORMATION: Exam: MR Abdomen Without Contrast [...] space: No significant peritoneal fluid. Arteries: No abdominalaortic aneurysm. Urinary bladder: The urinary bladder is unremarkable. Reproductive: Gravid uterus,single fetus. Fundal placenta, no previa. The ovaries are unremarkable. Lymph nodes: No adenopathy.Bones/joints: No significant skeletal abnormality. Normal intervertebral disc signal and morphology. Soft tissues: No significant abnormality. IMPRESSION: No acute finding. at 2010 Reported and signed by: Anant Qiu MD CC: Myla Londono MD; Parth Villanueva MD; Muriel De Los Santos MD Technologist: Jeff Cottrell, RT,MR,CT Trnscrbd D/T: (2010) GCD.CPS Orig Print D/T: S: 07/30/2021 (2010) [facility] [place] NAME: RADHA,DRE Radiology Department PHYS: Myla Sanchez MD [address] : 2000 AGE:21 SEX: F [place], [place] [address] LOC: TAYLOR PHONE #: [phone] EXAM DATE: STATUS: REG ER FAX #: [phone] RAD NO: Page 1 Signed Report- US ABDOMEN [id number] 00:00:00 [facility] 2000 Sex: F Patient Name: DRE GARCIA Unit No: [id number] EXAMS: CPT CODE: [id number] US ABDOMEN LTD 49231 PROCEDURE INFORMATION: Exam: US Abdomen, Limited; Appendix Exam date and time: 07/30/2021 3:57 PM Age: 21 years old Clinical indication: Other: Rlq pain x 8 days; ; Additional info: Right lower quadrant pain TECHNIQUE: Imaging protocol: US abdomen. Real time ultrasound with image documentation.Limited exam focused on the appendix. COMPARISON: CT ABD PELVIS W/CONT 11/13/2018 9:36 PM FINDINGS:Appendix: There is suggestion of a blind-ending tubular structure in the right lower quadrant whichis noncompressible and measures 3.4 x 1.6 cm in size with associated right lower quadrant rebound tenderness. IMPRESSION: Findings consistent with acute appendicitis. at 1705 Reported and signed by: Tucker Ambrosio MD CC: Parth Villanueva MD; Muriel De Los Santos MD Technologist: Talita Ordoñez RDMS, RVT Probe: Trnscrbd D/ (1705) GCD.CPS Orig Print D/T: S: 07/30/2021 (1705) [facility] NAME: RADHA,RDE Radiology Department PHYS: Parth Watkins [address] : 2000 AGE: 21 SEX: F [place], [place] [address] [facility] #: [phone] EXAM DATE: 07/30/2021 STATUS: REG ER FAX #: [phone] RAD NO: Page 1 Signed Report Patient Name: DRE GARCIA Unit No: [id number] EXAMS: CPT CODE: [id number] US ABDOMEN LTD 39785 <Continued> [facility] NAME: [facility] Radiology Department PHYS: Parth Watkins [address] : 2000 AGE: 21 SEX: Wandy [place], [place] [address] LOC: Wandy.ERS PHONE #: [phone] EXAM DATE: 07/30/2021 STATUS: REG ER FAX #: [phone] RAD NO: Page 2 Signed Report- US ABDOMEN [id number] 00:00:00 [facility] : 2000 Sex: F Patient Name: DRE GARCIA Unit No: [id number] Report Has Been Amended EXAMS: CPT CODE: [id number] US ABDOMEN LTD 97774 Addendum - 07/30/2021 SIGNED 07/30/2021 ADDENDUM: [id number] US/USABDLTD Addendum: Additional imaging by myself (Dr. Mónica Cummins) demonstrated what appeared to be a compressible appendix measuring 0.6 cm. There is no evidence of hyperemia. The tip of the appendix is notwell visualized and tip appendicitis cannot categorically be excluded. Large amount of bowel gas obscures the tip of the appendix. The patient is mildly tender over the right ovary. No free fluid or significant lymphadenopathy is identified. This finding should not preclude CT scan if felt clinically indicated. These findings were discussed with Dr. Sin Stoll by phone 5:20 p.m. 07/30/2021. at 8712 Reported and signed by: Caron Cummins MD Transcribed: 07/30/2021 (3533) GCD.CPS Report PROCEDURE INFORMATION: Exam: US Abdomen,Limited; Appendix Exam date and time: 07/30/2021 3:57 [...] Reported and signed by: Tucker Ambrosio MD [facility] NAME: DRE GARCIA Radiology Department PHYS: Parth Watkins [address] : 2000 AGE: 21 SEX: F [place] [address] LOC: Wandy.ERS PHONE #: [phone] EXAM DATE: 07/30/2021 STATUS: REGER FAX #: [phone] RAD NO: Page 1 Signed Report (CONTINUED) Patient Name: DRE GARCIA Unit No: [id number] Report Has Been Amended EXAMS: CPT CODE: [id number] US ABDOMEN LTD 70691 <Continued> CC: Parth Villanueva MD; Muriel De Los Santos MD Technologist: Talita Ordoñez RDMS, RVT Probe: Trnscrbd D/ (1704) GCD.CPS Orig Print D/T: S: 07/30/2021 (1704) [facility] NAME: MATHEUS GARCIAYENNE Radiology Department PHYS: Parth Watkins [address] : 2000 AGE: 21 SEX: F [place] [address] LOC: NeilERS PHONE #: [phone] EXAM DATE: 07/30/2021 STATUS: REG ER FAX #: [phone] RAD NO: Page 2 Signed Report Patient Name: DRE GARCIA Unit No: [id number] Report Has Been Amended EXAMS: CPT CODE: [id number] US ABDOMEN LTD 63619 <Continued> [facility] NAME: RADHAWALDO Radiology Department PHYS: Parth Watkins [address] : 2000 AGE: 21 SEX: F [place] [address] LOC: Wandy.ERS PHONE #: [phone] EXAM DATE: 07/30/2021 STATUS: REG ER FAX #: [phone] RAD NO: Page 3 Signed Report- US [id number] 00:00:00[facility] [place] [facility] : 2000 Sex: F Patient Name: DRE GARCIA Unit No: [id number] EXAMS: CPT CODE: [id number] US LTD 04393 PROCEDURE INFORMATION: Exam: US , Limited Exam [...] GCD.CPS Orig Print D/T: S: 07/30/2021 (1716) [facility] NAME: RADHADRE ASTORGA Radiology Department PHYS: Parth Watkins [address] [place] [address] : 2000 AGE: 21 SEX: F [place] [address] LOC: NeilERS PHONE #: [phone] EXAM DATE: 07/30/2021 STATUS: REG ER FAX #: [phone] RAD NO: Page 1 Signed Report Patient Name: DRE GARCIA Unit No: [id number] EXAMS: CPT CODE: [id number] LTD 04037 <Continued> [facility] Rad[facility] Department PHYS: Parth Watkins [address] [place] [address] : 2000 AGE: 21 SEX: F [place] [address] LOC: NeilERS PHONE #: [phone] EXAM DATE: 07/30/2021 STATUS: REG ER FAX #: [phone] RAD NO: Page 2 Signed Report Notes Date/Time Note Provider Source 2022-01-05 20:53:00 [id number] [place] [address] PATIENT NAME: DRE GARCIA ADMIT DATE: 12/24/21 ACCOUNT NO: [id number] ROOM NO: [facility] AGE: 21 SEX: F ADMITTING PHYSICIAN: Muriel De Los Santos MD ATTENDING PHYSICIAN: Muriel De Los Santos MD Provider Query QUERY TEXT: Condition General 360MD Query related questions should be directed to:[facility] Coding Query Helpline Based on your medial [...] AM at 2053 PATIENT NAME: DRE GARCIA [facility] 2021-12-26 08:33:00 [facility] OB Disch REPORT#:[id number] REPORT STATUS: Signed DATE:12/26/21 TIME: 832 PATIENT: DRE GARCIA UNIT #: [id number] ROOM/BED: [address] : 00 AGE: 21 SEX: F [...] Documented: Result Date Time B/P 129/85 12/25 2300 Temp 97.9 12/25 2300 Pulse 76 12/25 2300 Resp 18 12/25 [...] instr sheet given Diet: Regular Activity: No [place] for 6 Wks Additional discharge routines: Attending [...] timeframe: In 5-6 weeks at 0937 RPT #:[id number] END OF REPORT [facility] 2021-12-25 14:10:00 [facility] OB Delivery Note REPORT#:[id number] REPORT STATUS: Signed DATE:12/25/21 TIME: 1410 PATIENT: DRE GARCIA UNIT #: [id number] ROOM/BED: [address] : 00 AGE: 21 SEX: F [...] score: Low Risk for Hemorrhage Delivery date A: Delivery time A: Birthweight (gm) A: Weight (lb) infant A: Weight (oz) infant A: Gender infant A: Female 1 minute infant A: 5 minutes A: 10 minutes infant A: Cord pH obtained A: Vacuum time infant A: Vacuum # pulls A: Vacuum # popoffs A: QBL at delivery: __ Provider comments [...] Vaginal packing: No Mother's condition: mother stable Infant's condition: infant stable in room Lacerations: Perineal laceration(s): bilateral hymenal ring/vaginal wall lacerations Additional comments: As the head crowned and delivered, the perineum was protected with blue towel. The anterior shoulder delivered with gentle downward traction and posterior shoulder with gentle upward traction. A nuchal cord x1 was noted. The infant was bulb suctioned, after 1 minute the [...] correct x 2, lap scan negative. Good maternal-infant bonding noted Blood Loss/Details Blood loss at delivery: <1K: no sx hypovol=no hem EBL at delivery (ml's): 300 at 1414 RPT #:[id number] END OF REPORT [facility] 2021-12-24 17:45:00 [facility] ([facility]) Clinical Note REPORT#:[id number] REPORT STATUS: Signed DATE:12/24/21 TIME: 1745 PATIENT: DRE GARCIA UNIT #: [id number] ROOM/BED: [address] : 00 AGE: 21 SEX: F [...] plan for cervical ripening then pit 2x2 (/ in office), pt states that she doesn't do well with swallowing pills, discussed plan for PV cytotec 2. Rh+/RI/, GBS neg, COVID pending 3. PMH: denies 4. PSH: ovarian cystectomy 5. OB: baby girl! EFW 6lb6oz 7. Admit to APU until L D staffing available. at 1808 RPT #:[id number] END OF REPORT [facility] 2021-12-06 15:39:00 [facility] ([facility]) Clinical Note REPORT#:[id number] REPORT STATUS: Signed DATE:12/06/21 TIME: 1539 PATIENT: DRE GARCIA UNIT #: [id number] ROOM/BED: : 00 AGE: 21 SEX: F [...] regular or painful. Denies LOF, VB. PNC: [facility] with Dr. De [...] - deferred EFM - Cat 1 strip [place] - quiet Assessment/Plan: Patient seen in Triage for decreased movements. Has reactive NST. BPP 07/07. Plan: discharge home with precautions. Patient advised to f/u in office at next scheduled appointment on Thursday. at 1633 RPT #:[id number] END OF REPORT [facility] 2021-08-13 15:40:00 [id number] [address] PATIENT NAME: DRE GARCIA ADMIT DATE: 07/31/21 ACCOUNT NO: [id number] ROOM NO: .5040 AGE: 21 SEX: F ADMITTING PHYSICIAN: Muriel [...] She was seen and evaluated by her INTERNAL REVENUE SERVICE AGENT this morning and was sent over to [...] evaluation. Dictated By: Felice Sharma MD WT: CON:FNATI/STEVE/NTS Conf#: [id number]/DID#: [id number] Authenticated by Felice Sharma MD On 08/20/2021 04:16:54 PM at 0416 PATIENT NAME: DRE GARCIA [facility] 2021-08-01 13:03:00 [facility] ([facility]) Discharge Summary REPORT#:[id number] REPORT STATUS: Signed DATE:08/01/21 TIME: 1303 PATIENT: DRE GARCIA UNIT #: [id number] ROOM/BED: [address] : 00 AGE: 21 SEX: F [...] Result Date Time Pulse Ox 100 08/01 831 Pulse 86 08/01 831 B/P Mean 72.0 08/01 830 B/P 100/55 08/01 830 Temp 98.5 08/01 830 Resp 20 08/01 830 O2 Delivery Room air 07/31 0219 PATIENT WEIGHT: Weight (lb): 115 Weight (oz): Weight (kg): 52.163 General appearance: alert, awake, oriented, no acute distress, pleasant, conversational, mental status normal, no respiratory distress Head/Eyes: atraumatic Respiratory: no distress GI: soft, no guarding, no rebound, no distention (tender to palpation RLQ) Extremities: moves all, no calf tenderness, no pedal edema Neuro/SIGN MANUFACTURER: alert, oriented X 3, normal speech Discharge [...] up timeframe: In 5 days at 1307 RPT #:[id number] END OF REPORT [facility] 2021-08-01 11:17:00 [facility] ([facility]) Clinical Note REPORT#:[id number] REPORT STATUS: Signed DATE:08/01/21 TIME: 1117 PATIENT: DRE GARCIA UNIT #: [id number] ROOM/BED: [address] : 00 AGE: 21 SEX: F [...] discuss with primary team at 1542 RPT #:[id number] END OF REPORT [facility] 2021-08-01 10:16:00 [facility] ([facility]) OB Antepartum Prog Note REPORT#:[id number] REPORT STATUS: Signed DATE:08/01/21 TIME: 1016 PATIENT: DRE GARCIA UNIT #: [id number] ROOM/BED: [address] : 00 AGE: 21 SEX: F [...] Reports pain still present, no improvement with Foristell. Review of Systems Constitutional: Denies: chills, fever. [...] managmnt, possible pm discharge at 1301 RPT #:[id number] END OF REPORT [facility] 2021-08-01 10:16:00 [facility] ([facility]) OB Antepartum Prog Note REPORT#:[id number] REPORT STATUS: Signed DATE:08/01/21 TIME: 1016 PATIENT: DRE GARCIA UNIT #: [id number] ROOM/BED: [address] : 00 AGE: 21 SEX: F [...] Reports pain still present, no improvement with Foristell. Review of Systems Constitutional: Denies: chills, fever. [...] up in the office. at 1302 RPT #:[id number] END OF REPORT [facility] 2021-07-31 08:57:00 [facility] ([facility]) OB Antepartum Prog Note REPORT#:[id number] REPORT STATUS: Signed DATE:07/31/21 TIME: 856 PATIENT: DRE GARCIA UNIT #: [id number] ROOM/BED: [address] : 00 AGE: 21 SEX: F [...] Result Date Time B/P Mean 68.0 07/31 0752 B/P 92/55 07/31 075 Pulse 71 07/31 0752 Temp 98.2 07/31 [...] % (Auto) (14.5 - 29.7 %) 19.7 Rawlins % (Auto) (3.6 - 10.2 %) 4.8 Eos % (Auto) (0.0 - 3.0 %) 0.5 Baso % (Auto) (0.1 - 0.9 %) 0.1 Neut # (Auto) (K/mm3) 7.3 Lymph # (Auto) (K/mm3) 1.9 Raw[place]ins # (Auto) (K/mm3) 0.5 Eos # (Auto) (K/mm3) 0.05 Baso # (Auto) (K/mm3) 0.0 Serology SARS-CoV-2 Ag (Rapid) (NEGATIVE) NEGATIVE Urines Urine Color (YELLOW) STRAW Urine Appearance (CLEAR) CLEAR Urine pH (5 - 9) 7.0 Ur Specific [place] (1.001 - 1.035) 1.002 Urine Protein (NEG) [...] OB, for daily doptones at 1029 RPT #:[id number] END OF REPORT [facility] 2021-07-31 08:57:00 [facility] ([facility]) OB Antepartum Prog Note REPORT#:[id number] REPORT STATUS: Signed DATE:07/31/21 TIME: 0857 PATIENT: DRE GARCIA UNIT #: [id number] ROOM/BED: [address] : 00 AGE: 21 SEX: F [...] B/P Mean 68.0 07/31 752 B/P 92/55 07/31 752 Pulse 71 07/31 0752 Temp 98.2 07/31 [...] % (Auto) (14.5 - 29.7 %) 19.7 Rawlins % (Auto) (3.6 - 10.2 %) 4.8 Eos % (Auto) (0.0 - 3.0 %) 0.5 Baso % (Auto) (0.1 - 0.9 %) 0.1 Neut # (Auto) (K/mm3) 7.3 Lymph # (Auto) (K/mm3) 1.9 [place] # (Auto) (K/mm3) 0.5 Eos # (Auto) (K/mm3) 0.05 Baso # (Auto) (K/mm3) 0.0 Serology SARS-CoV-2 Ag (Rapid) (NEGATIVE) NEGATIVE Urines Urine Color (YELLOW) STRAW Urine Appearance (CLEAR) CLEAR Urine pH (5 - 9) 7.0 Ur Specific [place] (1.001 - 1.035) 1.002 Urine Protein (NEG) [...] Impressions: ULTRASOUND - US ABDOMEN LTD 07/30 3815 Report Impression - Status: SIGNED Entered: 07/30/2021 [...] pain meds tylenol for mild pain and Foristell for severe pain, SL zofran prn nausea, liquid pepcid daily. Will stop IVF and saline lock IV. Anticipate dc home tomorrow pending pain and nausea control. at 1804 RPT #:[id number] END OF REPORT [facility] 2021-07-31 07:57:00 [facility] ([facility]) Clinical Note REPORT#:[id number] REPORT STATUS: Signed DATE:07/31/21 TIME: 756 PATIENT: DRE GARCIA UNIT #: [id number] ROOM/BED: [address] : 00 AGE: 21 SEX: F [...] diet; non surgical abdomen at 0758 RPT #:[id number] END OF REPORT [facility] 2021-07-31 07:25:00 [facility] ([facility]) VEST FINISHER Admission H P REPORT#:[id number] REPORT STATUS: Signed DATE:07/31/21 TIME: 724 PATIENT: DRE GARCIA UNIT #: [id number] ROOM/BED: [address] : 00 AGE: 21 SEX: F [...] surgical history: Right ovarian cystectomy drainage. 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 Past OB history: : 1 Comments: [...] 0700: 07/31 0700 07/30 1900 Intake Total 2000.00 Output Total Balance 1999.00 Intake, IV 2000.00 Patient 52.163 kg 52.273 kg Weight Weight Standing scale Measurement Method PATIENT WEIGHT: Weight (lb): 115 Weight (oz): Weight (kg): 52.163 General appearance: alert, awake, oriented, pleasant, appears to be in some pain during discussion Head/Eyes: atraumatic Respiratory: aerating well Abdomen/GI: soft, no guarding, no rebound, no distention, significant ttp in RLQ Genitourinary: deferred Extremities: moves all Neuro/SIGN MANUFACTURER: alert, oriented X 3 Skin: no gross [...] % (Auto) (14.5 - 29.7 %) 19.7 Rawlins % (Auto) (3.6 - 10.2 %) 4.8 Eos % (Auto) (0.0 - 3.0 %) 0.5 Baso % (Auto) (0.1 - 0.9 %) 0.1 Neut # (Auto) (K/mm3) 7.3 Lymph # (Auto) (K/mm3) 1.9 [place] # (Auto) (K/mm3) 0.5 Eos # (Auto) (K/mm3) 0.05 Baso # (Auto) (K/mm3) 0.0 Serology SARS-CoV-2 Ag (Rapid) (NEGATIVE) NEGATIVE Urines Urine Color (YELLOW) STRAW Urine Appearance (CLEAR) CLEAR Urine pH (5 - 9) 7.0 Ur Specific [place] (1.001 - 1.035) 1.002 Urine Protein (NEG) [...] Report Impression - Status: SIGNED Entered: 07/30/2021 171 IMPRESSION: 1. Single, viable intrauterine gestation in [...] OB, for daily doptones at 0740 RPT #:[id number] END OF REPORT [facility] 2021-07-30 14:10:00 [facility] ([facility]) EMERGENCY PROVIDER REPORT REPORT#:[id number] REPORT STATUS: Signed DATE:07/30/21 TIME: 1410 PATIENT: DRE GARCIA UNIT #: [id number] ROOM/BED: AGE: 21 SEX: F PCP PHYS: [...] and vomiting, patient was seen by her OB?VEST FINISHER this morning who sent the patient to [...] % (Auto) (14.5 - 29.7 %) 19.7 [place] % (Auto) (3.6 - 10.2 %) 4.8 Eos % (Auto) (0.0 - 3.0 %) 0.5 Baso % (Auto) (0.1 - 0.9 %) 0.1 Neut # (Auto) (K/mm3) 7.3 Lymph # (Auto) (K/mm3) 1.9 [place] # (Auto) (K/mm3) 0.5 Eos # (Auto) (K/mm3) 0.05 Baso # (Auto) (K/mm3) 0.0 Urines Urine Color (YELLOW) STRAW Urine Appearance (CLEAR) CLEAR Urine pH (5 - 9) 7.0 Ur Specific [place] (1.001 - 1.035) 1.002 Urine Protein (NEG) [...] ovary. 5. No free fluid. Impression By: Lyla - Moses Mayorga MD Lab Imaging Statement [...] Room air 07/30 1350 Temp 36.9 07/30 135 Pulse 88 07/30 135 Resp 16 07/30 1350 All vital signs available at the time of this entry have been reviewed. Condition Stable Clinical Impression Clinical Impression Primary Impression: RLQ abdominal pain Discharge/Care Plan (Auto) Prescriptions Current Visit Scripts No Known Home Medications at 1725 RPT #:[id number] [facility] 2021-07-30 14:10:00 [facility] ([facility]) EMERGENCY PROVIDER REPORT REPORT#:[id number] REPORT STATUS: Signed DATE:07/30/21 TIME: 141 PATIENT: DRE GARCIA UNIT #: [id number] ROOM/BED: AGE: 21 SEX: F PCP PHYS: [...] and vomiting, patient was seen by her OB?VEST FINISHER this morning who sent the patient to [...] % (Auto) (14.5 - 29.7 %) 19.7 Rawlins % (Auto) (3.6 - 10.2 %) 4.8 Eos % (Auto) (0.0 - 3.0 %) 0.5 Baso % (Auto) (0.1 - 0.9 %) 0.1 Neut # (Auto) (K/mm3) 7.3 Lymph # (Auto) (K/mm3) 1.9 [place] # (Auto) (K/mm3) 0.5 Eos # (Auto) (K/mm3) 0.05 Baso # (Auto) (K/mm3) 0.0 Urines Urine Color (YELLOW) STRAW Urine Appearance (CLEAR) CLEAR Urine pH (5 - 9) 7.0 Ur Specific [place] (1.001 - 1.035) 1.002 Urine Protein (NEG) [...] Ambrosio MD ULTRASOUND - US LTD 07/30 155 Report Impression - Status: [...] Text/Dict Note tender in RLQ Time of Ev 2019 Free Text MDM Notes Free Text MDM Notes 21 yo female 17 weeks RLQ pain US and MRI neg (note that the initial US read was addended to be equivocal) abdomen remains tender discussed with Dr Sharma, will place in obs Patient Discharge Departure Disposition Decision Admit Admit Physician Name Muriel De Los Santos MD Admit Physician INTERNAL REVENUE SERVICE AGENT Request Time 2020 Request Date 07/30/21 )( Admission Accepts Yes )( Accepted Time 2020 )( Accepted Date 07/30/21 Discharge/Care Plan Counseled Regarding Diagnosis, Lab results, Imaging studies, Need for admission at 1725 at 2025 RPT #:[id number] END OF REPORT [facility]
[2025-02-05] MEDS ORDERED: LORazepam 2 MG/ML VIAL ONE (00:33)
[2025-02-05] MEDS ORDERED: ONDANSETRON 4 MG (ODT) TAB ONE (00:34)
--- NOTE | 2025-02-05 01:15 | EDPHYS ---
Physician Documentation [facility] Name: Renetta Martin Age: 24 yrs Sex: Female : 2000 Arrival Date: 02/05/2025 Time: 00:18 Bed 12 Private MD: ED Physician Aj Diaz HPI: 02/05 00:25 This 24 yrs old Female presents to ER via Unassigned with complaints of Anxiety. sb4 00:39 Patient states that she began experiencing an anxiety attack tonight after eating some sb4 food. States that she has had these in the past but today it concerned her because it was not going away. She states that she feels like she cannot catch her breath and that she is nauseous. She does not take anything for her anxiety. 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 - Infectious Disease History:: Denies. - Social history:: Smoking status: Patient denies any tobacco usage or history of. ROS: 00:39 Constitutional: Negative for fever, chills, and weight loss, sb4 00:39 Psych: Positive for anxiety, 00:39 All other systems are negative, Exam: 00:39 Head/Face: Normocephalic, atraumatic. Eyes: Extra-ocular motions intact. Periorbital sb4 areas with no swelling, redness, or edema. ENT: Mucous membranes moist. Cardiovascular: Regular rate and rhythm with a normal S1 and S2. Respiratory: No increased work of breathing, no retractions or nasal flaring. Skin: Warm, dry with normal turgor. Normal color with no rashes, no lesions, and no evidence of cellulitis. 00:39 Constitutional: The patient appears alert, awake, anxious, Vital Signs: 00:22 BP 121 / 83; Pulse 94; Resp 17 S; Temp 97.8(T); Pulse Ox 100% on R/A; Weight 52.16 kg; ha1 Height 5 ft. 3 in. ; 01:30 BP 117 / 71; Pulse 81; Resp 17 S; Pulse Ox 100% on R/A; ha1 00:22 Body Mass Index 20.37 (52.16 kg, 160.02 cm) ha1 MDM: 00:22 Medical Screening Exam initiated sb4 00:40 Data reviewed: vital signs, nurses notes, EMS record, and as a result, I will discharge sb4 patient. Test considered but Not performed: Labs: Not indicated, clinical diagnosis. Counseling: I had a detailed discussion with the patient and/or guardian regarding the historical points, exam findings, and any diagnostic results supporting the discharge/admit diagnosis, the need for outpatient follow up, for definitive care, to return to the emergency department if symptoms worsen or persist or if there are any questions or concerns that arise at home. Administered Medications: 00:38 Drug: LORazepam IM 1 mg IM once Route: IM; Site: right deltoid; ha1 01:00 Follow up: Response: No adverse reaction; Marked relief of symptoms; Anxiety decreased ha1 00:38 Drug: Ondansetron Oral Disintegrating Tablet Oral Disintegrating Tablet 4 mg PO once ha1 Route: PO; 01:00 Follow up: Response: No adverse reaction 1 Disposition: 03:51 Co-signature as Attending Physician, Aj Diaz MD I reviewed the patient's care rt provided by the Advanced Practice Provider and agree with the diagnosis and treatment plan. Disposition Summary: 02/05/25 01:15 Discharge Ordered Notes: Location: Home sb4 Problem: new sb4 Symptoms: have improved sb4 Condition: Stable sb4 Diagnosis - Anxiety disorder, unspecified sb4 Followup: sb4 - With: Private Physician - When: 2 - 3 days - Reason: Recheck today's complaints, Continuance of care, Re-evaluation by your physician Discharge Instructions: - Discharge Summary Sheet sb4 - Panic Attack, [id number] sb4 - Managing Anxiety, Adult sb4 Forms: - Patient Portal Instructions sb4 - Leadership Thank You Letter sb4 Prescriptions: - Hydroxyzine HCl 25 mg Oral tablet - take 1 tablet ORAL route every 6 hours As needed As needed anxiety or insomnia; sb4 12 tablet; Refills: 0, Product Selection Permitted Signatures: More Cleaning RN RN ha1 Denise Sue PA-C PA-C sb4 Aj Diaz MD MD rt
--- NOTE | 2025-02-05 01:15 | ER ---
Nurse's Notes [facility] Name: Renetta Martin Age: 24 yrs Sex: Female : 2000 Arrival Date: 02/05/2025 Time: 00:18 Bed 12 Private MD: Diagnosis: Anxiety disorder, unspecified Presentation: 02/05 00:22 Chief complaint: Patient states: FEELING ANXIOUS. ha1 00:22 Coronavirus screen: Client denies travel out of the [place] in the last 14 days. Ebola ha1 Screen: No symptoms or risks identified at this time. Initial Sepsis Screen: Does the patient meet any 2 criteria? No. Patient's initial sepsis screen is negative. Does the patient have a suspected source of infection? No. Patient's initial sepsis screen is negative. Risk Assessment: Do you want to hurt yourself or someone else? Patient reports no desire to harm self or others. Onset of symptoms was February 05, 2025. 00:22 Method Of Arrival: EMS: [facility] ha1 00:22 Acuity: IRENE 5 ha1 Triage Assessment: 00:40 General: Appears uncomfortable, Behavior is anxious. Pain: Denies pain. Neuro: Level of ha1 Consciousness is awake, alert, obeys commands, Oriented to person, place, time, situation. Cardiovascular: Capillary refill < 3 seconds Patient's skin is warm and dry. Respiratory: Airway is patent Respiratory effort is even, unlabored, Respiratory pattern is regular, symmetrical. GI: No signs and/or symptoms were reported involving the gastrointestinal system. : No signs and/or symptoms were reported regarding the genitourinary system. Derm: Skin is pink, warm \T\ dry. 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 - Infectious Disease History:: Denies. - Social history:: Smoking status: Patient denies any tobacco usage or history of. Screenin:22 [facility] ED Fall Risk Assessment (Adult) History of falling in the last 3 months, ha1 including since admission No falls in past 3 months (0 pts) Confusion or Disorientation No (0 pts) Intoxicated or Sedated No (0 pts) Impaired Gait No (0 pts) Mobility Assist Device Used No (0 pt) Altered Elimination No (0 pt) Score/Fall Risk Level 0 - 2 = Low Risk Oriented to surroundings, Maintained a safe environment, Educated pt \T\ family on fall prevention, incl call for assistance when getting out of bed, Hourly rounding (assess needs \T\ fall precautionary measures) done. Abuse screen: Denies threats or abuse. Denies injuries from another. Nutritional screening: No deficits noted. Tuberculosis screening: No symptoms or risk factors identified. Assessment: 01:50 Reassessment: Patient and/or family updated on plan of care and expected duration. Pain ha1 level reassessed. Patient is alert, oriented x 3, equal unlabored respirations, skin warm/dry/pink. Patient denies pain at this time. Patient states feeling better. Patient states symptoms have improved. Vital Signs: 00:22 BP 121 / 83; Pulse 94; Resp 17 S; Temp 97.8(T); Pulse Ox 100% on R/A; Weight 52.16 kg; ha1 Height 5 ft. 3 in. ; 01:30 BP 117 / 71; Pulse 81; Resp 17 S; Pulse Ox 100% on R/A; ha1 00:22 Body Mass Index 20.37 (52.16 kg, 160.02 cm) ha1 ED Course: 00:22 Patient arrived in ED. sb4 00:22 Denise Sue PA-C is PHCP. sb4 00:22 Aj Diaz MD is Attending Physician. sb4 00:22 Arm band placed on right wrist. ha1 00:22 Patient has correct armband on for positive identification. Placed in gown. Bed in low ha1 position. Call light in reach. Side rails up X 1. 00:38 More Cleaning RN is Primary Nurse. ha1 00:40 Triage completed. ha1 :50 Provided Education on: FOLLOW [employer] . ha1 :50 No provider procedures requiring assistance completed. ha1 01:50 Patient did not have IV access during this emergency room visit. ha1 Administered Medications: 00:38 Drug: LORazepam IM 1 mg IM once Route: IM; Site: right deltoid; ha1 01:00 Follow up: Response: No adverse reaction; Marked relief of symptoms; Anxiety decreased ha1 00:38 Drug: Ondansetron Oral Disintegrating Tablet Oral Disintegrating Tablet 4 mg PO once ha1 Route: PO; 01:00 Follow up: Response: No adverse reaction ha1 Medication: 01:50 VIS not applicable for this client. ha1 Outcome: 01:15 Discharge ordered by sb4 01:50 Discharged to home ambulatory, with family, ha1 01:50 Condition: stable 01:50 Discharge instructions given to patient, family, Instructed on discharge instructions, follow up and referral plans. medication usage, Demonstrated understanding of instructions, follow-up care, medications, Prescriptions given X 1, 01:55 Patient left the ED. ha1 Signatures: More Cleaning RN RN ha1 Denise Sue, PA-C PA-C sb4
[2025-02-05 03:17] VITALS: BP 121/83; TEMP 97.8; O2SAT 100
== END 2025-02-05 01:55 | disposition home or self-care (01) ==
LOC: ER 00:18
DX: F41.9 Anxiety disorder, unspecified (principal)
CPT/HCPCS: 96372; 99284; Q0162